=== PATIENT | female | born 1945 | race Caucasian/White ===

== ENCOUNTER 2019-12-20 08:49 | Outpatient (REF) | payer MEDICARE, SELFPAY ==
[2019-12-20 12:16] LABS: Alanine Aminotransferase 26 U/L (0-31); Anion Gap 16 (12-20); Aspartate Amino Transferase 22 U/L (5-31); Blood Urea Nitrogen 20 mg/dL (9-16); Calcium 9.7 mg/dL (8.4-10.2); Carbon Dioxide 28 mmol/L (22-29); Chloride 97 mmol/L (96-108); Cholesterol 180 mg/dL; Estimated Glomerular Filt Rate > 60; Glucose Fasting 144 mg/dL (60-99); HDL Cholesterol 81 mg/dL; LDL Cholesterol Calculated 82 mg/dl; Potassium 4.5 mmol/l (3.3-5.1); Sodium 136 mmol/L (135-145); Triglycerides 87 mg/dL
[2019-12-20 12:18] LABS: Vitamin D 25-OH Total 25.4 ng/mL (>30)
[2019-12-20 12:19] LABS: Estimated Average Glucose 180 mg/dL; Hemoglobin A1c % 7.9 %
== END 2019-12-20 08:50 | disposition home or self-care (01) ==
LOC: HO.HMGCLDS 08:49
PROVIDERS: PCP Internal Medicine; Visit Provider Internal Medicine
DX: I10 Essential (primary) hypertension (principal); E78.5 Hyperlipidemia, unspecified; E11.9 Type 2 diabetes mellitus without complications; Z78.0 Asymptomatic menopausal state
CPT/HCPCS: 80048; 80061; 82306; 83036; 84450; 84460

== ENCOUNTER 2020-05-12 07:44 | Outpatient (REF) | payer MEDICARE, SELFPAY ==
[2020-05-12 11:26] LABS: Estimated Average Glucose 214 mg/dL; Hemoglobin A1c % 9.1 %
[2020-05-12 11:56] LABS: Creatinine Urine 153.15 mg/dL; Microalbum/Creatinine Ratio Ur 47.6 ug/mg cr
[2020-05-12 12:03] LABS: Alanine Aminotransferase 27 U/L (0-31); Anion Gap 15 (12-20); Aspartate Amino Transferase 23 U/L (5-31); Blood Urea Nitrogen 17 mg/dL (9-16); Calcium 8.8 mg/dL (8.4-10.2); Carbon Dioxide 26 mmol/L (22-29); Chloride 100 mmol/L (96-108); Cholesterol 182 mg/dL; Estimated Glomerular Filt Rate > 60; Glucose Fasting 190 mg/dL (60-99); HDL Cholesterol 62 mg/dL; LDL Cholesterol Calculated 85 mg/dl; Potassium 4.3 mmol/L (3.3-5.1); Sodium 137 mmol/L (135-145); Triglycerides 179 mg/dL
[2020-05-12 12:06] LABS: Vitamin D 25-OH Total 24.5 ng/mL (>30)
== END 2020-05-12 07:45 | disposition home or self-care (01) ==
LOC: HO.HMGCLDS 07:44
PROVIDERS: PCP Internal Medicine; Visit Provider Internal Medicine
DX: E55.9 Vitamin D deficiency, unspecified (principal); E11.65 Type 2 diabetes mellitus with hyperglycemia; E78.5 Hyperlipidemia, unspecified; I10 Essential (primary) hypertension; Z78.0 Asymptomatic menopausal state
CPT/HCPCS: 36415; 80048; 80061; 82043; 82306; 83036; 84450; 84460

== ENCOUNTER 2020-05-20 | Outpatient (REF) | payer MEDICARE, SELFPAY ==
[2020-05-22 14:36] LABS: FIT1 NEGATIVE (NEGATIVE); FIT2 NEGATIVE (NEGATIVE)
[2020-05-22 14:37] LABS: FIT Int Ctl YES
== END 2020-05-20 00:01 | disposition home or self-care (01) ==
LOC: HO.LNP
PROVIDERS: Visit Provider Internal Medicine
DX: Z12.11 Encounter for screening for malignant neoplasm of colon (principal)
CPT/HCPCS: 82274

== ENCOUNTER 2020-08-19 07:22 | Outpatient (REF) | payer MEDICARE, SELFPAY ==
[2020-08-19 11:38] LABS: Estimated Average Glucose 197 mg/dL; Hemoglobin A1c % 8.5 %
[2020-08-19 11:50] LABS: Alanine Aminotransferase 36 U/L (0-31); Aspartate Amino Transferase 32 U/L (5-31); Cholesterol 155 mg/dL; HDL Cholesterol 57 mg/dL; LDL Cholesterol Calculated 78 mg/dl; Triglycerides 100 mg/dL
== END 2020-08-19 07:23 | disposition home or self-care (01) ==
LOC: HO.HMGCLDS 07:22
PROVIDERS: PCP Internal Medicine; Visit Provider Internal Medicine
DX: E11.29 Type 2 diabetes mellitus with other diabetic kidney complication (principal); E11.65 Type 2 diabetes mellitus with hyperglycemia; E55.9 Vitamin D deficiency, unspecified; E78.5 Hyperlipidemia, unspecified; I10 Essential (primary) hypertension; R80.9 Proteinuria, unspecified; Z78.0 Asymptomatic menopausal state
CPT/HCPCS: 36415; 80061; 82306; 83036; 84450; 84460

== ENCOUNTER 2020-11-18 08:36 | Outpatient (REF) | payer MEDICARE, SELFPAY ==
[2020-11-18 11:22] LABS: MANUAL DIFF FLAG NO
[2020-11-18 11:32] LABS: Basophils Percent Auto 0.5 % (0-2); Eosinophils Percent Auto 1.1 % (0-4); Hematocrit 34.2 % (37-47); Hemoglobin 11.4 g/dl (12.0-16.0); Imm Gran Abs Auto 0.02 X10*3/uL (0.00-0.03); Imm Gran Pct Auto 0.5 % (0.0-0.4); Lymphocytes Absolute Auto 0.8 X10*3/uL (1.2-4.9); Lymphocytes Percent Auto 20.3 % (20-40); Mean Corpuscular HGB Conc 33.3 g/dl (31.0-35.0); Mean Corpuscular Hemoglobin 31.1 pg (27.0-33.0); Mean Corpuscular Volume 93.4 fL (80-98); Mean Platelet Volume 10.4 fL (9.4-12.3); Monocytes Absolute Auto 0.7 X10*3/uL (0.1-1.2); Monocytes Percent Auto 18.1 % (2-11); Neutrophils Absolute Auto 2.2 X10*3/uL (2.0-8.3); Neutrophils Percent Auto 59.5 % (45-73); Platelet Count 235 X10*3/uL (160-400); Red Blood Count 3.66 X10*6/uL (4.20-5.50); Red Cell Distribution Width 13.4 % (11.0-16.0); White Blood Count 3.7 X10*3/uL (4.8-10.8)
[2020-11-18 12:11] LABS: Alanine Aminotransferase 24 U/L (0-31); Anion Gap 14 (12-20); Aspartate Amino Transferase 25 U/L (5-31); Blood Urea Nitrogen 14 mg/dL (9-16); Calcium 9.7 mg/dL (8.4-10.2); Carbon Dioxide 26 mmol/L (22-29); Chloride 104 mmol/L (96-108); Cholesterol 162 mg/dL; Estimated Glomerular Filt Rate > 60; Glucose Fasting 146 mg/dL (60-99); HDL Cholesterol 61 mg/dL; LDL Cholesterol Calculated 82 mg/dl; Potassium 4.4 mmol/L (3.3-5.1); Sodium 140 mmol/L (135-145); Triglycerides 97 mg/dL
[2020-11-18 12:54] LABS: Estimated Average Glucose 148 mg/dL; Hemoglobin A1C 151.7874 umol/L; Hemoglobin A1c % 6.8 %
== END 2020-11-18 08:37 | disposition home or self-care (01) ==
LOC: HO.HMGCLDS 08:36
PROVIDERS: PCP Internal Medicine; Visit Provider Internal Medicine
DX: E11.29 Type 2 diabetes mellitus with other diabetic kidney complication (principal); R80.9 Proteinuria, unspecified; I10 Essential (primary) hypertension; E78.5 Hyperlipidemia, unspecified
CPT/HCPCS: 36415; 80048; 80061; 83036; 84450; 84460; 85025

== ENCOUNTER 2021-02-16 08:11 | Outpatient (REF) | payer MEDICARE, SELFPAY ==
[2021-02-16 12:01] LABS: Alanine Aminotransferase 22 U/L (0-31); Anion Gap 12 (12-20); Aspartate Amino Transferase 23 U/L (5-31); Blood Urea Nitrogen 14 mg/dL (9-16); Calcium 9.6 mg/dL (8.4-10.2); Carbon Dioxide 29 mmol/L (22-29); Chloride 102 mmol/L (96-108); Cholesterol 207 mg/dL; Estimated Glomerular Filt Rate > 60; Glucose Fasting 159 mg/dL (60-99); HDL Cholesterol 59 mg/dL; LDL Cholesterol Calculated 121 mg/dl; Potassium 4.1 mmol/L (3.3-5.1); Sodium 139 mmol/L (135-145); Triglycerides 135 mg/dL
[2021-02-16 12:12] LABS: Estimated Average Glucose 166 mg/dL; Hemoglobin A1c % 7.4 %; Vitamin D 25-OH Total 28.3 ng/mL (>30)
== END 2021-02-16 08:12 | disposition home or self-care (01) ==
LOC: HO.HMGCLDS 08:11
PROVIDERS: PCP Internal Medicine; Visit Provider Internal Medicine
DX: E11.29 Type 2 diabetes mellitus with other diabetic kidney complication (principal); E55.9 Vitamin D deficiency, unspecified; E78.5 Hyperlipidemia, unspecified; I10 Essential (primary) hypertension; R80.9 Proteinuria, unspecified; Z78.0 Asymptomatic menopausal state
CPT/HCPCS: 36415; 80048; 80061; 82306; 83036; 84450; 84460

== ENCOUNTER 2021-05-27 07:52 | Outpatient (REF) | payer MEDICARE, SELFPAY ==
[2021-05-27 11:14] LABS: Basophils Percent Auto 0.5 % (0-2); Eosinophils Absolute Auto 0.1 X10*3/uL (0.0-0.4); Eosinophils Percent Auto 1.4 % (0-4); Hemoglobin 11.2 g/dl (12.0-16.0); Imm Gran Abs Auto 0.05 X10*3/uL (0.00-0.03); Imm Gran Pct Auto 1.2 % (0.0-0.4); Lymphocytes Absolute Auto 1.1 X10*3/uL (1.2-4.9); Lymphocytes Percent Auto 25.2 % (20-40); MANUAL DIFF FLAG SCAN; Mean Corpuscular Hemoglobin 30.5 pg (27.0-33.0); Mean Corpuscular Volume 95.4 fL (80.0-98.0); Mean Platelet Volume 10.2 fL (9.4-12.3); Monocytes Percent Auto 22.8 % (2-11); Neutrophils Absolute Auto 2.1 x10*3/uL (2.0-8.3); Neutrophils Percent Auto 48.9 % (45-73); Platelet Count 264 X10*3/uL (160-400); Red Blood Count 3.67 X10*6/uL (4.20-5.50); Red Cell Distribution Width 12.5 % (11.0-16.0); SCAN SMEAR FLAG 1; White Blood Count 4.3 X10*3/uL (4.8-10.8)
[2021-05-27 11:26] LABS: Estimated Average Glucose 163 mg/dL; Hemoglobin A1c % 7.3 %
[2021-05-27 11:35] LABS: Alanine Aminotransferase 19 U/L (0-31); Anion Gap 14 (12-20); Aspartate Amino Transferase 21 U/L (5-31); Blood Urea Nitrogen 32 mg/dL (9-16); Calcium 9.8 mg/dL (8.4-10.2); Carbon Dioxide 29 mmol/L (22-29); Chloride 100 mmol/L (96-108); Cholesterol 157 mg/dL; Estimated Glomerular Filt Rate 60; Glucose Fasting 139 mg/dL (60-99); HDL Cholesterol 59 mg/dL; Iron 70 mcg/dL (30-160); LDL Cholesterol Calculated 82 mg/dl; Percent Iron Saturation 17 % (15-50); Potassium 4.7 mmol/L (3.3-5.1); Sodium 138 mmol/L (135-145); Total Iron Binding Capacity 410 mcg/dL (228-428); Triglycerides 83 mg/dL; Unsaturated Iron Binding 340 ug/dL
[2021-05-27 11:45] LABS: SLIDE REVIEW VERIFIED
[2021-05-27 12:16] LABS: Creatinine Urine 103.76 mg/dL; Microalbum/Creatinine Ratio Ur 15.4 ug/mg cr
[2021-05-27 15:00] LABS: Vitamin D 25-OH Total 31.9 ng/mL (>30)
== END 2021-05-27 07:53 | disposition home or self-care (01) ==
LOC: HO.HMGCLDS 07:52
PROVIDERS: Visit Provider Internal Medicine
DX: E66.01 Morbid (severe) obesity due to excess calories (principal); E11.29 Type 2 diabetes mellitus with other diabetic kidney complication; E11.65 Type 2 diabetes mellitus with hyperglycemia; E55.9 Vitamin D deficiency, unspecified; E78.5 Hyperlipidemia, unspecified; I10 Essential (primary) hypertension; R80.9 Proteinuria, unspecified
CPT/HCPCS: 36415; 80048; 80061; 82043; 82306; 83036; 83540; 84450; 84460; 85025

== ENCOUNTER 2021-06-19 05:00 | Emergency (ER) | payer MEDICARE, SELFPAY ==
--- NOTE | ~2021-06-19 | US_ITS ---
EXAMINATION: US VENOUS ULTRASOUND WITH DOPPLER LOWER EXTREMITY, RIGHT CLINICAL INFORMATION: Right leg pain and swelling COMPARISON: None TECHNIQUE: Ultrasound of the deep veins is performed from the hip to the calf with compression sonography and color and pulse Doppler assessment. Spectral analysis with color-flow imaging is performed. FINDINGS: There is normal venous compression and respiratory variation and augmented flow. The visualized common femoral vein, superficial femoral vein, profunda femoral vein, popliteal vein, and the trifurcation region shows no evidence of deep venous thrombosis. No popliteal artery aneurysm. No popliteal fossa cyst. US/US venous duplex LE RT IMPRESSION: No acute DVT demonstrated in the right lower extremity.
[2021-06-19 05:24] VITALS: BP 193/83; PULSE 80; RESP 20; TEMP 36.5; O2SAT 96; BMI 32.8
[2021-06-19 05:41] VITALS: BP 192/67; PULSE 88; RESP 14; TEMP 36.7; O2SAT 97
--- NOTE | 2021-06-19 06:59 | ED_ITS ---
HPI - Extremity Problem General Chief complaint: Extremity Injury, Lower Stated complaint: Leg pain Time Seen by Provider: 06/19/21 05:35 Source: patient Mode of arrival: ambulatory Limitations: no limitations History of Present Illness MD Complaint: extremity pain and extremity swelling Onset (ago): day(s) (3) Pain Consistency: constant Location: right and lower extremity Quality: constant and other (throbbing) Radiation: none Relieving factors: nothing Exacerbating factors: palpation Associated symptoms: denies other symptoms Context: other (unknown) Related Data Home Medications Medication Instructions Recorded Confirmed blood sugar diagnostic #10 ea 05/14/20 05/28/21 lancets 28 gauge #100 ea 05/14/20 05/28/21 cholecalciferol (vitamin D3) 50 50 mcg PO DAILY 02/18/21 05/28/21 mcg (2,000 unit) capsule Previous Rx's Medication Instructions Recorded blood sugar diagnostic (FreeStyle #50 ea 08/20/20 Lite Strips) blood-glucose meter (FreeStyle #1 ea 08/20/20 [place] Lite) lancets 28 gauge (CareTouch Safety #100 ea 08/20/20 Lancets) diabetes shoes with inserts #1 ea 08/21/20 losartan 50 mg tablet 50 mg PO DAILY #90 cap 11/19/20 lorazepam 0.5 mg tablet 0.5 mg PO DAILY PRN #10 tab 02/18/21 rosuvastatin 5 mg tablet 5 mg PO Q2D 90 Days #45 cap 02/18/21 metformin 500 mg tablet,extended 1,000 mg PO BID #360 cap 03/09/21 release 24 hr ondansetron 4 mg disintegrating 4 mg PO Q8H PRN #20 tab 06/19/21 tablet oxycodone 5 mg tablet 5 mg PO TID PRN #10 tab 06/19/21 Allergies Allergy/AdvReac Type Severity Reaction Status Date / Time penicillin V Allergy Unknown Unknown Verified 05/28/21 12:04 Review of Systems Review of Systems: Constitutional : No Fever, No Chills ENT/Mouth : No Ear Pain, No Hoarseness, No sore throat Eyes: No Eye Pain, No Swelling, No Redness, No Foreign Body Cardiovascular : No Chest Pain, No SOB Respiratory : No Cough, No Dyspnea Gastrointestinal : No Nausea, No Vomiting, No Diarrhea, No abdominal Pain Genitourinary : No Dysuria, No Hematuria Musculoskeletal : no joint pain, Npos Myalgias, No Joint Swelling Skin : No Skin lacerations, No rash Neuro : No Weakness, No Numbness, No Loss of Consciousness, No Dizziness, No Headache Psych : No Anxiety/Panic, No Depression Heme/Lymph: no easy bruising, no Lymphadenopathy Endocrine : No Polyuria, No Polydipsia All other systems reviewed and are negative [facility] Past Medical History Attestation statement: The following information was validated with the patient. Medical History Asymptomatic age-related postmenopausal state Diabetes mellitus with hyperglycemia, without long-term current use of insulin Diabetes mellitus with microalbuminuria, without long-term current use of insulin Dyslipidemia HTN (hypertension) Morbid obesity Plantar fasciitis, bilateral Vitamin D deficiency Surgical History History of total abdominal hysterectomy and bilateral salpingo-oophorectomy Family History Family History Father Medical history non-contributory Mother Medical history non-contributory Social History Social History Housing: House Alcohol intake: current Patient Tobacco Use Status: Never used Tobacco e-Cigarette/Vaping Use: Never Used Second Hand Smoke Exposure: No Advance Directives: No service: No Current occupational status: retired Cognitive needs: No Hearing needs: No Vision needs: No Physical Exam Vital Signs: Vital Signs: Last Vital Signs Temp 98.4 F 06/19/21 07:03 Pulse 72 06/19/21 07:03 Resp 14 06/19/21 07:03 BP 147/49 H 06/19/21 07:03 Pulse Ox 96 06/19/21 07:03 BMI result Body Mass Index 32.8 Appearance: Alert. Oriented X3. No acute distress. Eyes: Pupils equal, round and reactive to light. ENT: Pharynx normal. Neck: Normal inspection. Neck supple. CVS: Normal heart rate and rhythm. Pulses normal. Respiratory: No respiratory distress. Breath sounds normal. Abdomen: Soft and nontender. Skin: Skin warm and dry. Normal skin color. Normal skin turgor. Extremities: No lower extremity edema. R leg appears more swollen but no pitting edema, R calf is ttp - distal NV intact bounding DP pulses - foot warm to the touch Neuro: Oriented X 3. No motor deficit. No sensory deficit. Course Course Course Narrative: no acute findings, stable for DC feels much better MDM - Extremity (Nontraumatic) MDM Narrative Medical decision making narrative: 76 yo female with hx of HTN, HLD, DM, here with c/o R calf cramping - no signs of infection she is NV intact she had no precipitating events or falls at this time will obtain labs, US to r/o DVT. PO valium for MR. Dejesus per results and findings. Lab Data Result diagrams: 06/19/21 07:26 06/19/21 07:26 Labs: Lab Results 06/19/21 06/19/21 06/19/21 Range/Units 07:26 07:26 07:26 WBC 5.4 (4.8-10.8) X10*3/uL RBC 3.33 L (4.20-5.50) X10*6/uL Hgb 10.3 L (12.0-16.0) g/dl Hct 30.4 L (37.0-47.0) % MCV 91.3 (80.0-98.0) fL MCH 30.9 (27.0-33.0) pg MCHC 33.9 (31.0-35.0) g/dl RDW 12.5 (11.0-16.0) % Plt Count 223 (160-400) X10*3/uL MPV 9.2 L (9.4-12.3) fL Absolute Nucleated RBC 0.000 (0.0-0.012) X10*3/uL Nucleated RBC % (auto) 0.0 (0.0-0.2) /100WBC PT 11.4 (9.9-13.0) SEC INR 1.0 (0.9-1.1) Sodium 139 (135-145) mmol/L Potassium 4.0 (3.3-5.1) mmol/L Chloride 105 (96-108) mmol/L Carbon Dioxide 24 (22-29) mmol/L Anion Gap 14 (12-20) BUN 19 H (9-16) mg/dL Creatinine 0.82 (0.5-1.4) mg/dL Estim Creat Clear Calc 58.9 Estimated GFR > 60 Random Glucose 179 H (60-115) mg/dL Calcium 9.3 (8.4-10.2) mg/dL Magnesium 2.0 (1.6-2.6) mg/dL Total Creatine Kinase 259 H (26-140) U/L Discharge Plan Discharge Clinical Impression: Calf cramp Patient Disposition: Home, Self-Care Instructions: Leg Cramps (ED), Muscle Cramp (ED) Additional Instructions: return to ED for any worsening symptoms or concerns US negative, labs stable Prescriptions: New oxycodone 5 mg tablet 5 mg PO TID PRN (Reason: pain) Qty: 10 0RF ondansetron 4 mg tablet,disintegrating 4 mg PO Q8H PRN (Reason: nausea and vomiting) Qty: 20 0RF No Action metformin 500 mg tablet extended release 24 hr 1,000 mg PO BID Qty: 360 1RF losartan 50 mg tablet 50 mg PO DAILY Qty: 90 3RF (DME) lancets 28 gauge misc See Rx Instructions ea topical BID Qty: 100 0RF Rx Instructions: As directed (DME) FreeStyle Lite Strips Strip See Rx Instructions ea Not Applicable BID Qty: 10 0RF Rx Instructions: As directed (DME) blood-glucose meter [FreeStyle [place] Lite] Kit See Rx Instructions .ROUTE .MEDSUPPLY Qty: 1 0RF Rx Instructions: check fasting lood sugar once a day (DME) FreeStyle Lite Strips Strip See Rx Instructions .ROUTE .MEDSUPPLY Qty: 50 5RF Rx Instructions: Check Fasting blood sugar once a day as directed (DME) lancets [CareTouch Safety Lancets] 28 gauge misc See Rx Instructions .ROUTE .MEDSUPPLY Qty: 100 3RF Rx Instructions: Check fasting blood sugar once a day As directed (DME) diabetes shoes with inserts See Rx Instructions .Route .MEDSUPPLY Qty: 1 0RF Rx Instructions: As directed cholecalciferol (vitamin D3) 50 mcg (2,000 unit) capsule 50 mcg PO DAILY 0RF rosuvastatin 5 mg tablet 5 mg PO Q2D 90 Days Qty: 45 4RF lorazepam 0.5 mg tablet 0.5 mg PO DAILY PRN (Reason: anxiety) Qty: 10 0RF Referrals: Radha Diaz MD [Primary Care Provider] - 2 days (if not better)
[2021-06-19 07:03] VITALS: BP 147/49; PULSE 72; RESP 14; TEMP 36.9; O2SAT 96
[2021-06-19 07:31] LABS: Hematocrit 30.4 % (37.0-47.0); Hemoglobin 10.3 g/dl (12.0-16.0); Mean Corpuscular HGB Conc 33.9 g/dl (31.0-35.0); Mean Corpuscular Hemoglobin 30.9 pg (27.0-33.0); Mean Corpuscular Volume 91.3 fL (80.0-98.0); Mean Platelet Volume 9.2 fL (9.4-12.3); Platelet Count 223 X10*3/uL (160-400); Red Blood Count 3.33 X10*6/uL (4.20-5.50); Red Cell Distribution Width 12.5 % (11.0-16.0); White Blood Count 5.4 X10*3/uL (4.8-10.8)
[2021-06-19] MEDS: diazePAM 2 MG TABLET PO (07:36)
[2021-06-19 07:38] LABS: Prothrombin Time 11.4 SEC (9.9-13.0)
[2021-06-19 08:08] LABS: Anion Gap 14 (12-20); Blood Urea Nitrogen 19 mg/dL (9-16); Calcium 9.3 mg/dL (8.4-10.2); Carbon Dioxide 24 mmol/L (22-29); Chloride 105 mmol/L (96-108); Creatinine Clr Calc Pharmacy 58.9; Estimated Glomerular Filt Rate > 60; Glucose Random 179 mg/dL (60-115); Sodium 139 mmol/L (135-145)
[2021-06-19] MEDS: Ondansetron ODT 4 MG TAB.RAPDIS TRANSLINGU (08:28)
[2021-06-19] MEDS: oxyCODONE HCl Immed Release 5 MG TABLET PO (08:28)
== END 2021-06-19 09:27 | disposition home or self-care (01) ==
PROVIDERS: Emergency Provider Emergency Medicine; PCP Internal Medicine
DX: R25.2 Cramp and spasm (principal); M79.604 Pain in right leg; I10 Essential (primary) hypertension; E11.9 Type 2 diabetes mellitus without complications
CPT/HCPCS: 36415; 80048; 82550; 83735; 85027; 85610; 93971; 99284

== ENCOUNTER 2021-07-19 13:33 | Outpatient (REF) | payer MEDICARE, SELFPAY ==
--- NOTE | ~2021-07-19 | US_ITS ---
EXAMINATION: NONINVASIVE ANKLE BRACHIAL INDICES OF BOTH LOWER EXTREMITIES CLINICAL INFORMATION: Right lower extremity pain.. COMPARISON: Venous Doppler ultrasound of the right lower extremity on June 19, 2021. TECHNIQUE: Ankle-brachial indices were calculated bilaterally and PVR tracings were performed at the level of the ankles. This study was performed at rest only. FINDINGS: RIGHT LEG: Right ankle-brachial index: 1.14 PVR (ankle): Normal LEFT LEG: Ankle-brachial index: 1.16 PVR (ankle): Normal US/US AMY complete IMPRESSION: RIGHT LEG: AMY 1.14. No evidence of arterial insufficiency. LEFT LEG: AMY 1.16. No evidence of arterial insufficiency. AMY Reference: - >0.97-1.25 = normal - no significant arterial disease - 0.75-0.96 = mild peripheral arterial disease - 0.5-0.74 = moderate peripheral arterial disease - <0.50 = severe peripheral arterial disease
== END 2021-07-19 13:34 | disposition home or self-care (01) ==
LOC: HO.US 13:33
PROVIDERS: Visit Provider Internal Medicine
DX: M79.661 Pain in right lower leg (principal); E11.65 Type 2 diabetes mellitus with hyperglycemia; R80.9 Proteinuria, unspecified; I10 Essential (primary) hypertension
CPT/HCPCS: 93923

== ENCOUNTER 2021-08-20 08:55 | Outpatient (REF) | payer MEDICARE, SELFPAY ==
[2021-08-20 11:27] LABS: Basophils Percent Auto 0.7 % (0-2); Eosinophils Absolute Auto 0.1 X10*3/uL (0.0-0.4); Eosinophils Percent Auto 1.2 % (0-4); Hematocrit 32.1 % (37.0-47.0); Hemoglobin 10.7 g/dl (12.0-16.0); Imm Gran Abs Auto 0.07 X10*3/uL (0.00-0.03); Imm Gran Pct Auto 1.7 % (0.0-0.4); Lymphocytes Absolute Auto 0.8 X10*3/uL (1.2-4.9); Lymphocytes Percent Auto 20.9 % (20-40); MANUAL DIFF FLAG SCAN; Mean Corpuscular HGB Conc 33.3 g/dl (31.0-35.0); Mean Corpuscular Hemoglobin 31.4 pg (27.0-33.0); Mean Corpuscular Volume 94.1 fL (80.0-98.0); Mean Platelet Volume 10.1 fL (9.4-12.3); Monocytes Absolute Auto 0.9 X10*3/uL (0.1-1.2); Monocytes Percent Auto 23.4 % (2-11); Neutrophils Absolute Auto 2.1 x10*3/uL (2.0-8.3); Neutrophils Percent Auto 52.1 % (45-73); Platelet Count 243 X10*3/uL (160-400); Red Blood Count 3.41 X10*6/uL (4.20-5.50); SCAN SMEAR FLAG 1
[2021-08-20 11:57] LABS: Iron 92 mcg/dL (30-160); Percent Iron Saturation 25 % (15-50); Total Iron Binding Capacity 372 mcg/dL (228-428); Unsaturated Iron Binding 280 ug/dL
[2021-08-20 12:00] LABS: SLIDE REVIEW VERIFIED
== END 2021-08-20 08:56 | disposition home or self-care (01) ==
LOC: HO.HMGCLDS 08:55
PROVIDERS: PCP Internal Medicine; Visit Provider Internal Medicine
DX: D64.9 Anemia, unspecified (principal)
CPT/HCPCS: 36415; 83540; 85025

== ENCOUNTER 2021-09-13 12:51 | Outpatient (REF) | payer MEDICARE, SELFPAY ==
--- NOTE | ~2021-09-13 | MM_ITS ---
EXAMINATION: MM SCREENING DIGITAL BREAST TOMOSYNTHESIS, BILATERAL CLINICAL INFORMATION: Screening. Asymptomatic. The lifetime risk of breast cancer based on the Tyrer-Cuzick Model is 2%. COMPARISON: Mammography: 09/03/2019, 05/09/2018, 02/23/2017 TECHNIQUE: Digital breast tomosynthesis is performed in both the craniocaudal and mediolateral oblique views along with computer-aided detection (CAD). Synthesized 2D images are generated from the tomosynthesis. Additional exaggerated right CC view is provided. FINDINGS: The breasts are heterogeneously dense, which may obscure small masses (ACR BI-RADS breast composition Category c). There are no significant masses, abnormal calcifications, or other abnormalities. Parenchymal pattern is similar to prior studies. There is no developing density or architectural abnormality. Scattered bilateral fine and coarse calcifications are again noted similar in distribution. The axilla and skin contours are unremarkable. No significant changes. MM/MM tomosynthesis screening BI IMPRESSION: No significant changes from prior studies. ASSESSMENT: BI-RADS 2: Benign RECOMMENDATION: Routine annual mammography screening. This patient's information was entered into a reminder system with a target due date for their next mammogram.
== END 2021-09-13 12:52 | disposition home or self-care (01) ==
LOC: HO.MAMMO 12:51
PROVIDERS: Visit Provider Internal Medicine
DX: Z12.31 Encounter for screening mammogram for malignant neoplasm of breast (principal)
CPT/HCPCS: 77063; 77067

== ENCOUNTER 2021-10-02 14:15 | Outpatient (REF) | payer MEDICARE, SELFPAY ==
[2021-10-02 14:39] LABS: Binax Internal Control QC Valid; Binax Now Covid-19 Ag Positive (Negative); Binax Performed by: HO.BONILM
== END 2021-10-02 14:16 | disposition home or self-care (01) ==
LOC: HO.HMGCLDS 14:15
PROVIDERS: PCP Internal Medicine; Visit Provider Physician Assistant Medical
DX: Z20.822 Contact with and (suspected) exposure to COVID-19 (principal)
CPT/HCPCS: 87811; C9803

== ENCOUNTER 2022-01-25 08:17 | Outpatient (REF) | payer MEDICARE, SELFPAY ==
[2022-01-25 11:52] LABS: Basophils Percent Auto 0.7 % (0-2); Eosinophils Absolute Auto 0.1 X10*3/uL (0.0-0.4); Eosinophils Percent Auto 1.5 % (0-4); Hematocrit 34.6 % (37.0-47.0); Hemoglobin 11.5 g/dl (12.0-16.0); Imm Gran Abs Auto 0.11 X10*3/uL (0.00-0.03); Imm Gran Pct Auto 2.7 % (0.0-0.4); Lymphocytes Percent Auto 25.2 % (20-40); MANUAL DIFF FLAG SCAN; Mean Corpuscular HGB Conc 33.2 g/dl (31.0-35.0); Mean Corpuscular Hemoglobin 30.7 pg (27.0-33.0); Mean Corpuscular Volume 92.5 fL (80.0-98.0); Mean Platelet Volume 9.8 fL (9.4-12.3); Monocytes Absolute Auto 0.9 X10*3/uL (0.1-1.2); Monocytes Percent Auto 22.8 % (2-11); Neutrophils Percent Auto 47.1 % (45-73); Platelet Count 248 X10*3/uL (160-400); Red Blood Count 3.74 X10*6/uL (4.20-5.50); Red Cell Distribution Width 12.9 % (11.0-16.0); SCAN SMEAR FLAG 1; White Blood Count 4.1 X10*3/uL (4.8-10.8)
[2022-01-25 12:02] LABS: Estimated Average Glucose 177 mg/dL; Hemoglobin A1c % 7.8 %
[2022-01-25 12:27] LABS: SLIDE REVIEW VERIFIED
[2022-01-25 12:28] LABS: Alanine Aminotransferase 21 U/L (0-31); Anion Gap 17 (12-20); Aspartate Amino Transferase 22 U/L (5-31); Blood Urea Nitrogen 19 mg/dL (9-16); Calcium 9.5 mg/dL (8.4-10.2); Carbon Dioxide 25 mmol/L (22-29); Chloride 101 mmol/L (96-108); Cholesterol 230 mg/dL; Estimated Glomerular Filt Rate > 60; Glucose Fasting 175 mg/dL (60-99); HDL Cholesterol 70 mg/dL; Iron 107 mcg/dL (30-160); LDL Cholesterol Calculated 137 mg/dl; Percent Iron Saturation 26 % (15-50); Potassium 4.5 mmol/L (3.3-5.1); Sodium 138 mmol/L (135-145); Total Iron Binding Capacity 408 mcg/dL (228-428); Triglycerides 117 mg/dL; Unsaturated Iron Binding 301 ug/dL
== END 2022-01-25 08:18 | disposition home or self-care (01) ==
LOC: HO.HMGCLDS 08:17
PROVIDERS: PCP Internal Medicine; Visit Provider Internal Medicine
DX: E11.29 Type 2 diabetes mellitus with other diabetic kidney complication (principal); E11.65 Type 2 diabetes mellitus with hyperglycemia; E78.5 Hyperlipidemia, unspecified; I10 Essential (primary) hypertension; R80.9 Proteinuria, unspecified; D50.9 Iron deficiency anemia, unspecified
CPT/HCPCS: 36415; 80048; 80061; 83036; 83540; 84450; 84460; 85025

== ENCOUNTER 2022-05-02 07:50 | Outpatient (REF) | payer MEDICARE, SELFPAY ==
[2022-05-02 12:07] LABS: Creatinine Urine 24.18 mg/dL; Microalbum/Creatinine Ratio Ur 74.4 ug/mg cr
[2022-05-02 12:15] LABS: Basophils Percent Auto 0.7 % (0-2); Eosinophils Absolute Auto 0.1 X10*3/uL (0.0-0.4); Eosinophils Percent Auto 1.4 % (0-4); Imm Gran Abs Auto 0.26 X10*3/uL (0.00-0.03); Imm Gran Pct Auto 4.4 % (0.0-0.4); Lymphocytes Absolute Auto 1.2 X10*3/uL (1.2-4.9); Lymphocytes Percent Auto 20.3 % (20-40); MANUAL DIFF FLAG SCAN; Mean Corpuscular HGB Conc 33.3 g/dl (31.0-35.0); Mean Corpuscular Hemoglobin 30.3 pg (27.0-33.0); Mean Corpuscular Volume 90.9 fL (80.0-98.0); Mean Platelet Volume 9.7 fL (9.4-12.3); Monocytes Absolute Auto 1.5 X10*3/uL (0.1-1.2); Monocytes Percent Auto 25.4 % (2-11); Neutrophils Absolute Auto 2.8 x10*3/uL (2.0-8.3); Neutrophils Percent Auto 47.8 % (45-73); Platelet Count 245 X10*3/uL (160-400); Red Blood Count 3.63 X10*6/uL (4.20-5.50); Red Cell Distribution Width 12.6 % (11.0-16.0); SCAN SMEAR FLAG 1; White Blood Count 5.9 X10*3/uL (4.8-10.8)
[2022-05-02 12:37] LABS: SLIDE REVIEW VERIFIED
[2022-05-02 12:40] LABS: Estimated Average Glucose 237 mg/dL; Hemoglobin A1c % 9.9 %
[2022-05-02 12:46] LABS: Alanine Aminotransferase 19 U/L (0-31); Anion Gap 14 (12-20); Aspartate Amino Transferase 16 U/L (5-31); Blood Urea Nitrogen 21 mg/dL (9-16); Calcium 9.2 mg/dL (8.4-10.2); Carbon Dioxide 26 mmol/L (22-29); Chloride 98 mmol/L (96-108); Cholesterol 141 mg/dL; Estimated Glomerular Filt Rate > 60; Glucose Fasting 209 mg/dL (60-99); HDL Cholesterol 59 mg/dL; LDL Cholesterol Calculated 59 mg/dl; Potassium 4.4 mmol/L (3.3-5.1); Sodium 134 mmol/L (135-145); Triglycerides 116 mg/dL
[2022-05-02 12:51] LABS: Vitamin D 25-OH Total 24.9 ng/mL (>30)
== END 2022-05-02 07:51 | disposition home or self-care (01) ==
LOC: HO.HMGCLDS 07:50
PROVIDERS: PCP Internal Medicine; Visit Provider Internal Medicine
DX: D50.9 Iron deficiency anemia, unspecified (principal); E11.29 Type 2 diabetes mellitus with other diabetic kidney complication; I10 Essential (primary) hypertension; R80.9 Proteinuria, unspecified; E78.5 Hyperlipidemia, unspecified; Z78.0 Asymptomatic menopausal state
CPT/HCPCS: 36415; 80048; 80061; 82043; 82306; 83036; 84450; 84460; 85025

== ENCOUNTER → 2022-05-11 09:50 | Outpatient (BNVA) | payer MEDICARE, SELFPAY | PROVIDERS: PCP Internal Medicine; Referring Provider Internal Medicine; Visit Provider Surgery | DX: L02.413 Cutaneous abscess of right upper limb (principal) | CPT/HCPCS: 10061; 99202 ==

== ENCOUNTER → 2022-05-19 14:19 | Outpatient (BNVA) | payer MEDICARE, SELFPAY | PROVIDERS: PCP Internal Medicine; Visit Provider Surgery | DX: Z48.817 Encounter for surgical aftercare following surgery on the skin and subcutaneous tissue (principal); Z87.2 Personal history of diseases of the skin and subcutaneous tissue | CPT/HCPCS: 99212 ==

== ENCOUNTER → 2022-06-17 09:53 | Outpatient (BNVA) | payer MEDICARE, SELFPAY | PROVIDERS: PCP Internal Medicine; Visit Provider Surgery | DX: L02.413 Cutaneous abscess of right upper limb (principal) | CPT/HCPCS: 99212 ==

== ENCOUNTER 2022-08-02 10:57 | Outpatient (REF) | payer MEDICARE, SELFPAY ==
[2022-08-02 11:06] VITALS: BMI 31.9
[2022-08-02 11:07] VITALS: BP 169/73; PULSE 77; RESP 16; TEMP 36.8; O2SAT 97
[2022-08-02 11:55] VITALS: BP 155/67; PULSE 70; RESP 16; O2SAT 96
--- NOTE | 2022-08-03 09:34 | P.OP_ITS ---
Operative Note Operative Note Date of Service: 08/02/22 Narrative: Preoperative diagnosis: Sebaceous cyst right posterior shoulder Postoperative diagnosis: same Procedure: excision of sebaceous cyst right posterior shoulder Surgeon: Demario Germain MD Software Quality Engineer: none Anesthesia: Sensorcaine 0.5% with epinephrine plus bicarbonate Indications for procedure: 77-year-old female with a previous history of an infected sebaceous cyst of the right posterior shoulder presenting now for excision to prevent future infections. Operative findings: 2 cm sebaceous cyst of posterior shoulder with scar tissue consistent with previous infection. Specimen: Sebaceous cyst posterior shoulder right Estimated blood loss: 10 mL Complications: none Procedure details: patient was brought to the OR placed in a Prone position. The site of surgery was confirmed by the patient in the posterior right shoulder. After assuring informed consent the skin was prepped with Betadine and draped in a sterile fashion. Local anesthesia was infiltrated circumferentially in longitudinal fashion. Elliptical incision was then created around the sebaceous cyst to include the central punctum and scar tissue. Incision was carried out through subcutaneous tissue and around the cyst wall. Lesion was passed off the table and sent to pathology for further examination. Hemostasis was assured with light pressure. Deep dermis was then closed using interrupted 3-0 Polysorb sutures. Skin was closed using interrupted 3-0 nylon sutures. Sterile dressings consisting of 2 x 2 gauze and Tegaderm were then applied. The patient tolerated the procedure well. She was discharged to home in stable condition.
== END 2022-08-02 10:58 | disposition home or self-care (01) ==
LOC: HO.MS 10:57
PROVIDERS: PCP Internal Medicine; Visit Provider Surgery
PROC: (CPT 11404; principal; 2022-08-02 11:10)
DX: L72.3 Sebaceous cyst (principal)
CPT/HCPCS: 11404; 88304

== ENCOUNTER 2022-08-09 07:23 | Outpatient (REF) | payer MEDICARE, SELFPAY ==
[2022-08-09 08:24] LABS: Basophils Percent Auto 0.4 % (0-2); Eosinophils Absolute Auto 0.1 X10*3/uL (0.0-0.4); Eosinophils Percent Auto 1.6 % (0-4); Hematocrit 32.5 % (37.0-47.0); Hemoglobin 10.7 g/dl (12.0-16.0); Imm Gran Abs Auto 0.16 X10*3/uL (0.00-0.03); Imm Gran Pct Auto 3.6 % (0.0-0.4); Lymphocytes Absolute Auto 0.9 X10*3/uL (1.2-4.9); Lymphocytes Percent Auto 19.6 % (20-40); MANUAL DIFF FLAG SCAN; Mean Corpuscular HGB Conc 32.9 g/dl (31.0-35.0); Mean Corpuscular Hemoglobin 30.1 pg (27.0-33.0); Mean Corpuscular Volume 91.5 fL (80.0-98.0); Mean Platelet Volume 9.9 fL (9.4-12.3); Monocytes Absolute Auto 1.1 X10*3/uL (0.1-1.2); Monocytes Percent Auto 24.7 % (2-11); Neutrophils Absolute Auto 2.2 x10*3/uL (2.0-8.3); Neutrophils Percent Auto 50.1 % (45-73); Platelet Count 233 X10*3/uL (160-400); Red Blood Count 3.55 X10*6/uL (4.20-5.50); SCAN SMEAR FLAG 1; White Blood Count 4.5 X10*3/uL (4.8-10.8)
[2022-08-09 08:38] LABS: Estimated Average Glucose 194 mg/dL; Hemoglobin A1c % 8.4 %
[2022-08-09 08:52] LABS: Alanine Aminotransferase 19 U/L (0-31); Anion Gap 12 (12-20); Aspartate Amino Transferase 16 U/L (5-31); Blood Urea Nitrogen 18 mg/dL (9-16); Calcium 9.4 mg/dL (8.4-10.2); Carbon Dioxide 26 mmol/L (22-29); Chloride 103 mmol/L (96-108); Cholesterol 209 mg/dL; Estimated Glomerular Filt Rate > 60; Glucose Fasting 210 mg/dL (60-99); HDL Cholesterol 53 mg/dL; Iron 119 mcg/dL (30-160); LDL Cholesterol Calculated 118 mg/dl; Percent Iron Saturation 34 % (15-50); Potassium 4.5 mmol/L (3.3-5.1); Sodium 136 mmol/L (135-145); Total Iron Binding Capacity 354 mcg/dL (228-428); Triglycerides 193 mg/dL; Unsaturated Iron Binding 235 ug/dL
[2022-08-09 09:10] LABS: Vitamin D 25-OH Total 64.4 ng/mL (>30)
[2022-08-09 09:18] LABS: SLIDE REVIEW VERIFIED
== END 2022-08-09 07:24 | disposition home or self-care (01) ==
LOC: HO.LAB 07:23
PROVIDERS: PCP Internal Medicine; Visit Provider Internal Medicine
DX: D50.9 Iron deficiency anemia, unspecified (principal); E11.29 Type 2 diabetes mellitus with other diabetic kidney complication; E66.9 Obesity, unspecified; E78.5 Hyperlipidemia, unspecified; I10 Essential (primary) hypertension; R80.9 Proteinuria, unspecified; L72.0 Epidermal cyst
CPT/HCPCS: 36415; 80048; 80061; 82306; 83036; 83540; 84450; 84460; 85025; 99212

== ENCOUNTER 2022-08-10 13:26 | Outpatient (AMB) | payer MEDICARE, SELFPAY ==
--- NOTE | 2022-08-10 13:27 | A.OFFPC_ITS ---
Vital Signs 08/10/22 13:29 Height 5 ft 3 in Weight 200 lb BMI 35.4 BP 144/62 H Blood Pressure Location Rt brachial Position Sitting Pulse 102 H Pulse Source Pulse Oximeter Pulse Oximetry (%) 98 Oxygen Delivery Method Room Air Intake Visit Reasons: 3 mon follow up after labs Intake Note: Pt is here today to f/u recent labs Allergies penicillin V Allergy (Unknown, Verified 11/09/22 13:39) Unknown Medication List - Last Reconciled 08/10/22 by Radha Diaz MD blood sugar diagnostic (FreeStyle Lite Strips) Check Fasting blood sugar once a day as directed blood-glucose meter (FreeStyle [place] Lite kit) check fasting lood sugar once a day cholecalciferol (vitamin D3) 1,250 mcg PO QWEEK 3 months [diabetes shoes with inserts As directed] [diabetic shoes As directed] ferrous fumarate 324 mg PO DAILY FreeStyle Nerissa 2 Sensor (flash glucose sensor) check blood sugar as directed NS lancets (I & CombineTouch Safety Lancets) Check fasting blood sugar once a day As directed lorazepam 0.5 mg PO DAILY PRN losartan 100 mg PO DAILY 90 days magnesium oxide 500 mg PO DAILY metformin ER 1,000 mg (2 x 500 mg) PO BID rosuvastatin 5 mg PO Q2D 3 months Tobacco use date assessed: 08/10/22 Fall risk assessment: No Falls in past year Last assessed Fall Risk: 08/10/22 HPI 3 mon follow up after labs HPI Details 77-year-old lady with diabetes mellitus, hypertension and dyslipidemia, here today for follow-up. She has been compliant with taking her medications, but admits to not always following recommended diet. She has does stay active but has no regular exercise. [facility] Medical History Asymptomatic age-related postmenopausal state Diabetes mellitus with microalbuminuria, without long-term current use of insulin Dyslipidemia HTN (hypertension) Leukopenia Plantar fasciitis, bilateral Surgical History History of removal of cyst (08/02/22) History of total abdominal hysterectomy and bilateral salpingo-oophorectomy Family History Father Medical history non-contributory Mother Medical history non-contributory Social History Housing: House Alcohol intake: current Patient Tobacco Use Status: Never used Tobacco e-Cigarette/Vaping Use: Never Used Second Hand Smoke Exposure: No service: No Current occupational status: retired Cognitive needs: No Hearing needs: No Vision needs: No Questionnaire PHQ-9 Over the last 2 weeks, how often have you been bothered by any of the following problems? Depression Screening Interpretation: Negative Source: Developed by Drs. Blair Davis, Lila Ferris, Monico Cisneros and colleagues, with an educational hilario from [employer]. Thrive Questionnaire Date Thrive assessed: 08/23/21 SHAHID-7 AMB Questionnaire SHAHID-7 Date SHAHID - 7 assessed: 08/23/21 Source: Developed by Drs. Blair Davis, Lila Ferris, Monico Cisneros and colleagues, with an educational hilario from [employer]. Review of Systems Const Denies body aches, Denies fatigue, Denies fever(s), Denies frequent falls, Denies malaise, Denies poor appetite and Denies weakness Eyes Details: Sees [facility] Reports no additional complaints ENT Reports Normal hearing present Card Denies chest pain, Denies lightheadedness and Denies dyspnea Resp Denies chest congestion, Denies cough, Denies dyspnea and Denies wheezing GI Denies abdominal pain, Denies change in bowel habits and Denies heartburn Reports nocturia, Denies dysuria and Reports urinary incontinence Musc Reports arthralgias ( both feet) and Denies numbness Skin/Breast Reports as per HPI Neuro Reports Normal hearing present, Denies frequent falls, Denies memory loss, Denies numbness, Denies Sensory deficit (Neuro) and Denies weakness Psych Reports as per HPI and Denies memory loss Endo Denies fatigue, Denies polydipsia and Denies polyuria Pratik/Lymph Denies easy bruising Aller/Immun Denies seasonal rhinorrhea and Denies wheezing Physical exam (Primary Care) Vital Signs: Last Vital Signs Pulse 102 H 08/10/22 13:29 BP 144/62 H 08/10/22 13:29 Pulse Ox 98 08/10/22 13:29 Oxygen Delivery Method Room Air 08/10/22 13:29 BMI result Body Mass Index 35.4 BMI Assessment/Plan discussion: High BMI High, discussed plan: lifestyle, weight reduction, dietary, physical activity and alcohol moderation Tobacco/Smoking Status: Tobacco use Status Tobacco use date assessed 08/10/22 08/10/22 13:30 Patient Tobacco Use Status Never used Tobacco 08/10/22 13:30 e-Cigarette/Vaping Use Never Used 08/10/22 13:30 Depression Screening Interpretation: Negative Thrive Assessment: Date of Thrive Assessment Date Thrive assessed 08/23/21 08/10/22 13:30 Const General: comfortable, no acute distress and alert Nutritional Appearance: obese Orientation/consciousness: patient oriented x3 HENMT Mouth: Normal oral and palatal mucosa present, oropharynx normal and moist mucous membranes Eyes General: appearance normal, both eyes and all related structures Neck Neck: Yes full ROM, Yes no lymphadenopathy and Yes supple Resp Auscultation: clear to auscultation bilaterally Cardio Rate: regular rate Rhythm: regular rhythm Heart sounds: S1 normal heart sound present and S2 normal heart sound present GI Palpation (GI): Soft to palpation, nontender, no guarding and no masses General: Yes no CVA tenderness Back/Spine/Pelvis Back: no CVA tenderness and No back tenderness Neuro General: patient oriented x3 Cranial nerves: Yes Normal hearing present Sensory Exam: No Sensory deficit (Neuro) Extrem General: Yes full ROM, Yes no joint enlargement, Yes no pedal edema, Yes no calf tenderness and Yes normal gait Results Reviewed Results Reviewed: ENTERED: 08/09/22 EDUARDO EWING: ORDERED: CBC Auto Diff, SLIDE REVIEW Test Result Flag Reference Site WBC 4.5 L 4.8-10.8 X10*3/uL RBC 3.55 L 4.20-5.50 X10*6/uL HGB 10.7 L 12.0-16.0 g/dl HCT 32.5 L 37.0-47.0 % MCV 91.5 80.0-98.0 fL MCH 30.1 27.0-33.0 pg MCHC 32.9 31.0-35.0 g/dl RDW 13.0 11.0-16.0 % PLT 233 160-400 X10*3/uL MPV 9.9 9.4-12.3 fL Neut Pct Auto 50.1 45-73 % ImGran Pct Auto 3.6 H 0.0-0.4 % Lymp Pct Auto 19.6 L 20-40 % Blaine Pct Auto 24.7 H 2-11 % Eos Pct Auto 1.6 0-4 % Baso Pct Auto 0.4 0-2 % NRBC Pct Auto 0.0 0.0-0.2 /100WBC ANC Neut Abs # 2.2 2.0-8.3 x10*3/uL ImGran Abs Auto 0.16 H 0.00-0.03 X10*3/uL Lymph Abs Auto 0.9 L 1.2-4.9 X10*3/uL Blaine Abs Auto 1.1 0.1-1.2 X10*3/uL Eos Abs Auto 0.1 0.0-0.4 X10*3/uL Baso Abs Auto 0.0 0.0-0.2 X10*3/uL NRBC Abs Auto 0.000 0.0-0.012 X10*3/uL SLIDE REVIEW VERIFIED ENTERED: 08/09/[address] [facility]: ORDERED: Met Prof Fast, IRON PROF, AST, ALT, Lipid Panel, Vitamin D 25-OH Test Result Flag Reference Site Sodium 136 135-145 mmol/L Potassium 4.5 3.3-5.1 mmol/L CL 103 96-108 mmol/L CO2 26 22-29 mmol/L Gap 12 12-20 BUN 18 H 9-16 mg/dL Creat 0.81 0.5-1.4 mg/dL EGFR > 60 NOTE: For -[place]is[place] individuals, multiply the result by 1.210. Chronic Kidney Disease: Estimated GFR < 60 mL/min/1.73m2 Severe Kidney Disease: Estimated GFR < 15 mL/min/1.73m2 FBS 210 H 60-99 mg/dL A fasting glucose of 126 mg/dl or greater on more than one occasion is considered diagnostic of diabetes. CA 9.4 8.4-10.2 mg/dL Iron 119 30-160 mcg/dL TIBC 354 228-428 mcg/dL Saturation 34 15-50 % UIBC 235 ug/dL AST (GOT) 16 5-31 U/L ALT (GPT) 19 0-31 U/L Triglyceride 193 mg/dL Desirable Triglyceride: less than 150 mg/dL Borderline High Triglyceride 150-199 mg/dL High Triglyceride: 200-499 mg/dL Very High Triglyceride: greater than or equal to 5OO mg/dL Chol 209 mg/dL Desirable Cholesterol: less than 200 mg/dL Borderline High Cholesterol: 200-239 mg/dL High Cholesterol: greater than 239 mg/dL LDL Calculated 118 mg/dl Desirable LDL: less than 100 mg/dL Near Optimal/Above Optimal LDL: 110-129 mg/dL Borderline High LDL: 130-159 mg/dL High LDL: 160-189 mg/dL Very High LDL: greater than or equal to 190 mg/dL HDL 53 mg/dL Desirable HDL: greater than 40 mg/dL Note: This HDL assay may give artificially low results in patients with liver disease. Vit D 25-OH Tot 64.4 >30 ng/mL Health Based Reference Values* < 20 ng/mL Deficient 20-30 ng/mL Insufficient > 30 ng/mL Sufficient ENTERED: 08/09/2228 EDUARDO EWING: ORDERED: Hgb A1c Test Result Flag Reference Site A1c % 8.4 % Hemoglobin A1C Reference Range Adults: 4.8 - 6.0 % Non diabetic: < 6.0 % Goal: < 7.0 % Additional Action Suggested: > 8.0 % Note: Hemoglobin A1c results are invalid for patients with abnormal amounts of HbF. Blood transfusions may impact the HbA1c concentration in the patient sample. Est. Avg. Gluc 194 mg/dL eAG = Estimated average glucose which is %A1C express ed as average glucose, using the formula of the [id number] Average Glucose study (ADAG), Diabetes Care, Vol.31,#8, 2007 Assessment and Plan Assessment & Plan (1) Diabetes mellitus with microalbuminuria, without long-term current use of insulin: Code(s): E11.29 - Type 2 diabetes mellitus with other diabetic kidney complication; R80.9 - Proteinuria, unspecified Plan: Diabetes not well controlled, with a hemoglobin A1c today at 8.4%. Continued on metformin ER 1000 mg tablet taken twice a day, and added Januvia 100 mg per tablet taken once a day. Continue checking blood sugar with freestyle Nerissa, stressed importance of adhering to recommended diet and getting regular exercise. Will check diabetes again in 3 month (2) Dyslipidemia: Code(s): E78.5 - Hyperlipidemia, unspecified Plan: Reviewed recent fasting lipid panel today with patient with LDL cholesterol not at goal of less than 100 mg/dL. Continued on rosuvastatin 5 mg every other day, and advised adherence to low-cholesterol diet and getting regular exercise. Will repeat another fasting lipid panel in 3 months (3) HTN (hypertension): Code(s): I10 - Essential (primary) hypertension Plan: Blood pressure not at goal of less than 130/80. Will continue on losartan 100 mg taken once a day in a.m.. Reinforced importance of following a low sodium diet, getting regular exercise, and lowering stress levels. (4) Microcytic hypochromic anemia: Code(s): D50.9 - Iron deficiency anemia, unspecified Plan: Stressed compliance with taking iron supplements. Will check again another iron profile and CBC in 3 month (5) Obesity (BMI 30.0-34.9): Code(s): E66.9 - Obesity, unspecified Plan: Discussed need to increase activity and wt reduction. Recommended focusing on improving your health instead of dieting. : Eat Mediterranean diet, limit foods high in fat, sugar, and calories, eat slowly, pay attention to portion sizes, plan your meals ahead of time, start regular physical activity 150 minutes of moderate intensity exercise or 90 minutes/week of vigorous exercise and increase water intake. Orders: Orders Lipid Panel 3 Months E66.9 - Obesity, unspecified, D50.9 - Iron deficiency anemia, unspecified, E11.29 - Type 2 diabetes mellitus with other diabetic kidney complication, R80.9 - Proteinuria, unspecified, I10 - Essential (primary) hypertension, E78.5 - Hyperlipidemia, unspecified Alanine Aminotransferase 3 Months E66.9 - Obesity, unspecified, D50.9 - Iron deficiency anemia, unspecified, E11.29 - Type 2 diabetes mellitus with other diabetic kidney complication, R80.9 - Proteinuria, unspecified, I10 - Essential (primary) hypertension, E78.5 - Hyperlipidemia, unspecified Basic Metabolic Panel Fasting 3 Months E66.9 - Obesity, unspecified, D50.9 - Iron deficiency anemia, unspecified, E11.29 - Type 2 diabetes mellitus with other diabetic kidney complication, R80.9 - Proteinuria, unspecified, I10 - E ssential (primary) hypertension, E78.5 - Hyperlipidemia, unspecified IRON PROFILE 3 Months E66.9 - Obesity, unspecified, D50.9 - Iron deficiency anemia, unspecified, E11.29 - Type 2 diabetes mellitus with other diabetic kidney complication, R80.9 - Proteinuria, unspecified, I10 - Essential (primary) hypertension, E78.5 - Hyperlipidemia, unspecified Vitamin D 25-OH Total 3 Months E66.9 - Obesity, unspecified, D50.9 - Iron deficiency anemia, unspecified, E11.29 - Type 2 diabetes mellitus with other diabetic kidney complication, R80.9 - Proteinuria, unspecified, I10 - Essential (primary) hypertension, E78.5 - Hyperlipidemia, unspecified Hemoglobin A1c 3 Months E66.9 - Obesity, unspecified, D50.9 - Iron deficiency anemia, unspecified, E11.29 - Type 2 diabetes mellitus with other diabetic kidney complication, R80.9 - Proteinuria, unspecified, I10 - Essential (primary) hypertension, E78.5 - Hyperlipidemia, unspecified Aspartate Amino Transferase 3 Months E66.9 - Obesity, unspecified, D50.9 - Iron deficiency anemia, unspecified, E11.29 - Type 2 diabetes mellitus with other diabetic kidney complication, R80.9 - Proteinuria, unspecified, I10 - Essential (primary) hypertension, E78.5 - Hyperlipidemia, unspecified Complete Blood Count Auto Diff 3 Months E66.9 - Obesity, unspecified, D50.9 - Iron deficiency anemia, unspecified, E11.29 - Type 2 diabetes mellitus with other diabetic kidney complication, R80.9 - Proteinuria, unspecified, I10 - Essential (primary) hypertension, E78.5 - Hyperlipidemia, unspecified Medications: New Januvia (sitagliptin phosphate) 100 mg PO DAILY 90 tabs 2RF NS E11.29 - Type 2 diabetes mellitus with other diabetic kidney complication, R80.9 - Proteinuria, unspecified Changed From [diabetes shoes with inserts] As directed 1 ea 0RF E11.29 - Type 2 diabetes mellitus with other diabetic kidney complication, R80.9 - Proteinuria, uns pecified To [diabetes shoes with inserts] As directed 1 ea 0RF E11.29 - Type 2 diabetes mellitus with other diabetic kidney complication, R80.9 - Proteinuria, unspecified Coding Level of Care Code Est Pt Level 4 (81172) Diagnoses Diabetes mellitus with microalbuminuria, without long-term current use of insulin E11.; R80.9 Dyslipidemia E78.5 HTN (hypertension) I10 Microcytic hypochromic anemia D50.9 Obesity (BMI 30.0-34.9) E66.9
[2022-08-10 13:29] VITALS: BP 144/62; PULSE 102; O2SAT 98; BMI 35.4
== END 2022-08-10 14:08 | disposition home or self-care (01) ==
LOC: HO.HMGC 13:26
PROVIDERS: PCP Internal Medicine; Visit Provider Internal Medicine
DX: E11.29 Type 2 diabetes mellitus with other diabetic kidney complication (principal); I10 Essential (primary) hypertension; E66.9 Obesity, unspecified; Z68.35 Body mass index [BMI] 35.0-35.9, adult; D50.9 Iron deficiency anemia, unspecified; R80.9 Proteinuria, unspecified; E78.5 Hyperlipidemia, unspecified
CPT/HCPCS: 99214

== ENCOUNTER 2022-11-08 08:13 | Outpatient (REF) | payer MEDICARE, SELFPAY ==
[2022-11-08 11:27] LABS: Basophils Percent Auto 0.6 % (0-2); Eosinophils Absolute Auto 0.1 X10*3/uL (0.0-0.4); Eosinophils Percent Auto 1.1 % (0-4); Hematocrit 32.1 % (37.0-47.0); Hemoglobin 10.6 g/dl (12.0-16.0); Imm Gran Abs Auto 0.08 X10*3/uL (0.00-0.03); Imm Gran Pct Auto 1.7 % (0.0-0.4); Lymphocytes Absolute Auto 0.9 X10*3/uL (1.2-4.9); Lymphocytes Percent Auto 19.7 % (20-40); MANUAL DIFF FLAG SCAN; Mean Corpuscular Hemoglobin 30.6 pg (27.0-33.0); Mean Corpuscular Volume 92.8 fL (80.0-98.0); Mean Platelet Volume 10.5 fL (9.4-12.3); Monocytes Absolute Auto 1.1 X10*3/uL (0.1-1.2); Monocytes Percent Auto 23.5 % (2-11); Neutrophils Absolute Auto 2.5 x10*3/uL (2.0-8.3); Neutrophils Percent Auto 53.4 % (45-73); Platelet Count 232 X10*3/uL (160-400); Red Blood Count 3.46 X10*6/uL (4.20-5.50); Red Cell Distribution Width 13.2 % (11.0-16.0); SCAN SMEAR FLAG 1; White Blood Count 4.7 X10*3/uL (4.8-10.8)
[2022-11-08 11:59] LABS: SLIDE REVIEW VERIFIED
[2022-11-08 12:34] LABS: Estimated Average Glucose 163 mg/dL; Hemoglobin A1c % 7.3 % (<6.0)
[2022-11-08 14:43] LABS: Alanine Aminotransferase 21 U/L (0-31); Anion Gap 11 (12-20); Aspartate Amino Transferase 22 U/L (5-31); Blood Urea Nitrogen 19 mg/dL (9-16); Calcium 9.8 mg/dL (8.4-10.2); Carbon Dioxide 26 mmol/L (22-29); Chloride 105 mmol/L (96-108); Cholesterol 153 mg/dL (<200); Estimated Glomerular Filt Rate > 60; Glucose Fasting 153 mg/dL (60-99); HDL Cholesterol 52 mg/dL (>40); Iron 101 mcg/dL (30-160); LDL Cholesterol Calculated 72 mg/dL (<100); Percent Iron Saturation 31 % (15-50); Potassium 4.3 mmol/L (3.3-5.1); Sodium 138 mmol/L (135-145); Total Iron Binding Capacity 326 mcg/dL (228-428); Triglycerides 146 mg/dL (<150); Unsaturated Iron Binding 225 ug/dL
[2022-11-08 15:03] LABS: Vitamin D 25-OH Total 39.2 ng/mL (>30)
== END 2022-11-08 08:14 | disposition home or self-care (01) ==
LOC: HO.HMGCLDS 08:13
PROVIDERS: PCP Internal Medicine; Visit Provider Internal Medicine
DX: D50.9 Iron deficiency anemia, unspecified (principal); E11.29 Type 2 diabetes mellitus with other diabetic kidney complication; E78.5 Hyperlipidemia, unspecified; I10 Essential (primary) hypertension; R80.9 Proteinuria, unspecified; E66.9 Obesity, unspecified
CPT/HCPCS: 36415; 80048; 80061; 82306; 83036; 83540; 84450; 84460; 85025

== ENCOUNTER 2022-11-09 13:16 | Outpatient (AMB) | payer MEDICARE, SELFPAY ==
--- NOTE | 2022-11-09 13:17 | MHC.PC.OV ---
Vital Signs 11/09/22 13:26 Height 5 ft 3 in Weight 196 lb BMI 34.7 BP 132/50 L Blood Pressure Location Rt brachial Position Sitting Pulse 89 Pulse Source Pulse Oximeter Pulse Oximetry (%) 97 Oxygen Delivery Method Room Air Intake Visit Reasons: 3m dm,lipids,anemia Intake Note: Pt is here today for her 3 months DM,lipids and anemia Allergies penicillin V Allergy (Unknown, Verified 11/09/22 13:39) Unknown Medication List - Last Reconciled 11/09/22 by Radha Diaz MD blood sugar diagnostic (FreeStyle Lite Strips) Check Fasting blood sugar once a day as directed blood-glucose meter (FreeStyle Evant Lite kit) check fasting lood sugar once a day [diabetes shoes with inserts As directed] [diabetic shoes As directed] ferrous fumarate 324 mg PO DAILY FreeStyle Nerissa 2 Sensor (flash glucose sensor) check blood sugar as directed NS Januvia (sitagliptin phosphate) 100 mg PO DAILY NS lancets (CareTouch Safety Lancets) Check fasting blood sugar once a day As directed losartan 100 mg PO DAILY 90 days magnesium oxide 500 mg PO DAILY metformin ER 1,000 mg (2 x 500 mg) PO BID rosuvastatin 5 mg PO Q2D 3 months Tobacco use date assessed: 08/10/22 Fall risk assessment: No Falls in past year Last assessed Fall Risk: 11/09/22 Dental Screening Dental Screen Date: 11/09/22 Did you have a dental visit in the last 12 months?: Yes Did you have a dental problem in the last 6 months where you did not have access to dental care?: Yes Was dental information given to patient?: Patient has dentist HPI 3m dm,lipids,anemia HPI Details 77-year-old lady here today for follow-up on her diabetes mellitus, hyperlipidemia, and anemia. Has not been taking her iron supplements regularly, but latest iron profile are within normal limits. CBC however still showed presence of leukopenia and microcytic hypochromic anemia, unchanged from last check. Patient however does not complain of any shortness of breath, no chest pain, no palpitations or lightheadedness. Recent a hemoglobin A1c came down to 7.3%. Currently taking Januvia 100 mg daily and metformin ER a 1000 mg twice a day. Fasting lipids are within normal limits, currently on rosuvastatin 5 mg every other day, and blood pressure is also controlled on losartan 100 mg daily. She states that she has been trying to follow recommended diet, but states that she loves to eat , and occasionally cheats with ice-cream and junk food. She does walk for exercise as well as swims at the [facility] Medical History Asymptomatic age-related postmenopausal state Diabetes mellitus with microalbuminuria, without long-term current use of insulin Dyslipidemia HTN (hypertension) Leukopenia Plantar fasciitis, bilateral Surgical History History of removal of cyst (08/02/22) History of total abdominal hysterectomy and bilateral salpingo-oophorectomy Family History Father Medical history non-contributory Mother Medical history non-contributory Social History Housing: House Alcohol intake: current Patient Tobacco Use Status: Never used Tobacco e-Cigarette/Vaping Use: Never Used Second Hand Smoke Exposure: No service: No Current occupational status: retired Cognitive needs: No Hearing needs: No Vision needs: No Questionnaire PHQ-9 Over the last 2 weeks, how often have you been bothered by any of the following problems? 1. Little interest or pleasure in doing things: not at all 2. Feeling down, depressed, or hopeless: not at all 3. Trouble falling or staying asleep, or sleeping too much: not at all 4. Feeling tired or having little energy: not at all 5. Poor appetite or overeating: not at all 6. Feeling bad about yourself - or that you are a failure or have let yourself or your family down: not at all 7. Trouble concentrating on things, such as reading the newspaper or watching television: not at all 8. Moving or speaking so slowly that other people could have noticed. Or the opposite - being so fidgety or restless that you have been moving around a lot more than usual: not at all 9. Thoughts that you would be better off or of hurting yourself in some way: not at all Total score: 0 Depression Screening Interpretation: Negative 44046 - PHQ-9 Billing: Yes Source: Developed by Drs. Blair Davis, Monico Singh and colleagues, with an educational hilaroi from [employer] Thrive Questionnaire Date Thrive assessed: 11/09/22 I am a: Patient What is your living situation today?: I have a steady place to live Within the past 12 months, did the food you bought not last and you didn't have the money to get more?: Never true Within the past 12 months, did you worry whether your food would run out before you got money to buy more?: Never true Do you have trouble paying for medicines?: No Do you have trouble getting transportation to medical appointments?: No Do you have trouble paying your heating and electricity bill?: No Do you have trouble taking care of your child, family member or friend?: No Do you have trouble with day-to-day activities such as bathing, preparing meals, shopping, managing finances, etc.?: No Are you currently unemployed and looking for a job?: No Are you interested in more education?: No Please select the resources that you would like help with: None AUDIT C Alcohol Use Questionnaire (AUDIT-C) 1. How often do you have a drink containing alcohol?: 2-3 times a week (pablo with remi) 3. How often do you have six or more drinks on one occasion?: Never Total Score: 3 Score Reviewed/Action Taken: Yes SHAHID-7 AMB Questionnaire SHAHID-7 Date SHAHID - 7 assessed: 11/09/22 Feeling nervous, anxious, or on edge: 0 = Not at all Not being able to stop or control worryin = Not at all Worrying too much about different things: 0 = Not at all Trouble relaxin = Not at all Being so restless that it is hard to sit still: 0 = Not at all Becoming easily annoyed or irritable: 0 = Not at all Feeling afraid as if something awful might happen: 0 = Not at all Total SHAHID-7 score (0-4 normal; 5-9 mild; 10-14 moderate; 15-21 severe): 0 Source: Developed by Lila Torrez Kurt Kroenke and colleagues, with an educational hilario from [employer] SHAHID-7 Assessment Billing SHAHID-7 Assessment Tool: SHAHID-7 Assessment 34442 Review of Systems Const Denies body aches, Denies fatigue, Denies fever(s), Denies frequent falls, Denies headache(s), Denies malaise, Denies poor appetite and Denies weakness Eyes Details: Sees [facility] Reports no additional complaints ENT Reports Normal hearing present and Denies headache(s) Card Denies chest pain, Denies lightheadedness, Denies palpitations and Denies dyspnea Resp Denies chest congestion, Denies cough, Denies dyspnea and Denies wheezing GI Denies abdominal pain, Denies change in bowel habits and Denies heartburn Reports nocturia, Denies dysuria, Reports urinary incontinence and Reports urinary urgency Musc Reports arthralgias ( both feet) and Denies numbness Skin/Breast Reports as per HPI Neuro Reports Normal hearing present, Denies frequent falls, Denies headache(s), Denies memory loss, Denies numbness, Denies Sensory deficit (Neuro) and Denies weakness Psych Reports as per HPI and Denies memory loss Endo Denies fatigue, Denies polydipsia, Denies polyuria and Denies palpitations Pratik/Lymph Denies easy bruising Aller/Immun Denies seasonal rhinorrhea and Denies wheezing Physical exam (Primary Care) Vital Signs: Last Vital Signs Pulse 89 11/09/22 13:26 BP 132/50 L 11/09/22 13:26 Pulse Ox 97 11/09/22 13:26 Oxygen Delivery Method Room Air 11/09/22 13:26 BMI result Body Mass Index 34.7 BMI Assessment/Plan discussion: High BMI High, discussed plan: lifestyle, weight reduction, dietary, physical activity and alcohol moderation Tobacco/Smoking Status: Tobacco use Status Tobacco use date assessed 08/10/22 11/09/22 13:18 Patient Tobacco Use Status Never used Tobacco 11/09/22 13:18 e-Cigarette/Vaping Use Never Used 11/09/22 13:18 Depression Screening Interpretation: Negative Thrive Assessment: Date of Thrive Assessment Date Thrive assessed 08/23/21 11/09/22 13:18 Const General: comfortable, no acute distress and alert Nutritional Appearance: obese Orientation/consciousness: patient oriented x3 Limitations: no limitations HENMT Mouth: Normal oral and palatal mucosa present, oropharynx normal and moist mucous membranes Eyes General: appearance normal, both eyes and all related structures Neck Neck: Yes full ROM, Yes no lymphadenopathy and Yes supple Chest Breast/axilla palpation: normal palpation of the breasts and normal palpation of the axillae Resp Auscultation: clear to auscultation bilaterally Cardio Rate: regular rate Rhythm: regular rhythm Heart sounds: S1 normal heart sound present and S2 normal heart sound present GI Palpation (GI): Soft to palpation, nontender, no guarding and no masses General: Yes no CVA tenderness Back/Spine/Pelvis Back: no CVA tenderness and No back tenderness Neuro General: patient oriented x3 Cranial nerves: Yes Normal hearing present Sensory Exam: No Sensory deficit (Neuro) Extrem General: Yes full ROM, Yes no joint enlargement, Yes no pedal edema, Yes no calf tenderness and Yes normal gait Results Reviewed Results Reviewed: Laboratory Tests 08/09/22 11/08/22 07:46 08:18 Estimat Average Glucose 194 163 Hemoglobin A1c % 8.4 7.3 H Name: Cecilia López Age/Sex: 77/F : 1945 Unit#: [id number] Attend Dr: Radha Diaz MD Re11/08/22 Status: DEP REF Location: [facility] [place] Disch: SPEC : [id number] HEATHER: 11/08/22 STATUS: COMP REQ : [id number] RECD: 11/08/[address]: Radha Diaz MD COMP: 11/08/22 ENTERED: 11/08/22 [facility] DR: ORDERED: CBC Auto Diff, SLIDE REVIEW Test Result Flag Reference Site WBC 4.7 L 4.8-10.8 X10*3/uL RBC 3.46 L 4.20-5.50 X10*6/uL HGB 10.6 L 12.0-16.0 g/dl HCT 32.1 L 37.0-47.0 % MCV 92.8 80.0-98.0 fL MCH 30.6 27.0-33.0 pg MCHC 33.0 31.0-35.0 g/dl RDW 13.2 11.0-16.0 % PLT 232 160-400 X10*3/uL ENTERED: 11/08/22 EDUARDO EWING: ORDERED: Met Prof Fast, IRON PROF, AST, ALT, Lipid Panel, Vitamin D 25-OH Test Result Flag Reference Site Sodium 138 135-145 mmol/L Potassium 4.3 3.3-5.1 mmol/L CL 105 96-108 mmol/L CO2 26 22-29 mmol/L Gap 11 L 12-20 BUN 19 H 9-16 mg/dL Creat 0.82 0.5-1.4 mg/dL EGFR > 60 NOTE: For -Dutch individuals, multiply the result by 1.210. Chronic Kidney Disease: Estimated GFR < 60 mL/min/1.73m2 Severe Kidney Disease: Estimated GFR < 15 mL/min/1.73m2 FBS 153 H 60-99 mg/dL A fasting glucose of 126 mg/dl or greater on more than one occasion is considered diagnostic of diabetes. CA 9.8 8.4-10.2 mg/dL Iron 101 30-160 mcg/dL TIBC 326 228-428 mcg/dL Saturation 31 15-50 % UIBC 225 ug/dL AST (GOT) 22 5-31 U/L ALT (GPT) 21 0-31 U/L Triglyceride 146 <150 mg/dL Desirable Triglyceride: less than 150 mg/dL Borderline High Triglyceride 150-199 mg/dL High Triglyceride: 200-499 mg/dL Very High Triglyceride: greater than or equal to 5OO mg/dL Cholesterol 153 <200 mg/dL Desirable Cholesterol: less than 200 mg/dL Borderline High Cholesterol: 200-239 mg/dL High Cholesterol: greater than 239 mg/dL LDL Calculated 72 <100 mg/dL Desirable LDL: less than 100 mg/dL Near Optimal/Above Optimal LDL: 110-129 mg/dL Borderline High LDL: 130-159 mg/dL High LDL: 160-189 mg/dL Very High LDL: greater than or equal to 190 mg/dL HDL 52 >40 mg/dL Desirable HDL: greater than 40 mg/dL Note: This HDL assay may give artificially low results in patients with liver disease. Vit D 25-OH Tot 39.2 >30 ng/mL Health Based Reference Values* < 20 ng/mL Deficient 20-30 ng/mL Insufficient > 30 ng/mL Sufficient Assessment and Plan Assessment & Plan (1) Microcytic hypochromic anemia: Code(s): D50.9 - Iron deficiency anemia, unspecified Plan: Latest iron levels are within normal limits, still with microcytic hyperchromic anemia, referred to hematology for further evaluation management, Cologuard testing done last year came back negative (2) Leukopenia: Code(s): D72.819 - Decreased white blood cell count, unspecified Plan: Hematology consult ordered (3) Diabetes mellitus with microalbuminuria, without long-term current use of insulin: Code(s): E11.29 - Type 2 diabetes mellitus with other diabetic kidney complication; R80.9 - Proteinuria, unspecified Plan: Diabetes control improving, now with a hemoglobin A1c at 7.3%. Continue with regular eye exam a [facility], continue with med for min and Januvia, continue to check fasting blood sugar at home, maintain log and bring to next appointment for review. Reinforced diabetic diet and regular exercise with patient. Counseled regarding importance of yearly diabetes retinopathy screening. Patient advised to inspect feet daily, for any signs of injury, callus or infection. Compliance with diet and regular exercise again stressed. Blood pressure goal is less than 130/80, goal LDL is less than 100 and goal hemoglobin A1c is less than 7% follow-up appointment made in--3-months, after fasting labs done. (4) HTN (hypertension): Code(s): I10 - Essential (primary) hypertension Plan: Blood pressure at goal of less than 130/80. Continue with current medication. Reinforced importance of following a low sodium diet, getting regular exercise, and lowering stress levels. (5) Dyslipidemia: Code(s): E78.5 - Hyperlipidemia, unspecified Plan: Reviewed recent fasting lipid profile with patient with levels at goal . Continue with rosuvastatin 5 mg 1 tablet every other day , in addition to adherence to low-cholesterol diet and regular exercise, at least 30 minutes 3 to 4 times a week. Advised patient to make healthy food choices, eat more fruits, vegetables, whole grains, wild caught fish and low-fat dairy. Limit amount of meat and fried or fatty food products, as well as processed foods and fast foods. Follow-up scheduled with repeat fasting lipid panel in 3 months. Orders: Orders Alanine Aminotransferase 02/03/23 D50.9 - Iron deficiency anemia, unspecified, D72.819 - Decreased white blood cell count, unspecified, E11.29 - Type 2 diabetes mellitus with other diabetic kidney complication, E78.5 - Hyperlipidemia, unspecified, I10 - Essential (primary) hypertension, R80.9 - Proteinuria, unspecified Aspartate Amino Transferase 02/03/23 D50.9 - Iron deficiency anemia, unspecified, D72.819 - Decreased white blood cell count, unspecified, E11.29 - Type 2 diabetes mellitus with other diabetic kidney complication, E78.5 - Hyperlipidemia, unspecified, I10 - Essential (primary) hypertension, R80.9 - Proteinuria, unspecified Basic Metabolic Panel Fasting 02/03/23 D50.9 - Iron deficiency anemia, unspecified, D72.819 - Decreased white blood cell count, unspecified, E11.29 - Type 2 diabetes mellitus with other diabetic kidney complication, E78.5 - Hyperlipidemia, unspecified, I10 - Essential (primary) hypertension, R80.9 - Proteinuria, unspecified Hemoglobin A1c 02/03/23 D50.9 - Iron deficiency anemia, unspecified, D72.819 - Decreased white blood cell count, unspecified, E11.29 - Type 2 diabetes mellitus with other diabetic kidney complication, E78.5 - Hyperlipidemia, unspecified, I10 - Essential (primary) hypertension, R80.9 - Proteinuria, unspecified Lipid Panel 02/03/23 D50.9 - Iron deficiency anemia, unspecified, D72.819 - Decreased white blood cell count, unspecified, E11.29 - Type 2 diabetes mellitus with other diabetic kidney complication, E78.5 - Hyperlipidemia, unspecified, I10 - Essential (primary) hypertension, R80.9 - Proteinuria, unspecified Complete Blood Count Auto Diff 02/03/23 D50.9 - Iron deficiency anemia, unspecified, D72.819 - Decreased white blood cell count, unspecified, E11.29 - Type 2 diabetes mellitus with other diabetic kidney complication, E78.5 - Hyperlipidemia, unspecified, I10 - Essential (primary) hypertension, R80.9 - Proteinuria, unspecified Referrals Hematology & Oncology Referral D50.9 - Iron deficiency anemia, unspecified, D72.819 - Decreased white blood cell count, unspecified Coding Level of Care Code Est Pt Level 4 (35522) Diagnoses Microcytic hypochromic anemia D50.9 Leukopenia D72.819 Diabetes mellitus with microalbuminuria, without long-term current use of insulin E11.29; R80.9 HTN (hypertension) I10 Dyslipidemia E78.5 Additional Codes SHAHID-7 Assessment Billing - SHAHID-7 Assessment Tool: SHAHID-7 Assessment [id number] ([id number])
[2022-11-09 13:26] VITALS: BP 132/50; PULSE 89; O2SAT 97; BMI 34.7
== END 2022-11-09 14:02 | disposition home or self-care (01) ==
PROVIDERS: PCP Internal Medicine; Visit Provider Internal Medicine
DX: D50.9 Iron deficiency anemia, unspecified (principal); D72.819 Decreased white blood cell count, unspecified; E11.29 Type 2 diabetes mellitus with other diabetic kidney complication; I10 Essential (primary) hypertension; R80.9 Proteinuria, unspecified; E78.5 Hyperlipidemia, unspecified
CPT/HCPCS: 99214

== ENCOUNTER → 2022-12-14 11:18 | Outpatient (BNV) | payer MEDICARE, SELFPAY | PROVIDERS: PCP Internal Medicine; Visit Provider Internal Medicine | DX: D50.9 Iron deficiency anemia, unspecified (principal) | CPT/HCPCS: 99204; 99213 ==

== ENCOUNTER 2023-02-14 08:08 | Outpatient (REF) | payer MEDICARE, SELFPAY ==
[2023-02-14 11:26] LABS: Basophils Percent Auto 0.4 % (0-2); Eosinophils Percent Auto 0.7 % (0-4); Hematocrit 34.2 % (37.0-47.0); Hemoglobin 11.2 g/dl (12.0-16.0); Imm Gran Abs Auto 0.09 X10*3/uL (0.00-0.03); Imm Gran Pct Auto 1.6 % (0.0-0.4); Lymphocytes Absolute Auto 0.9 X10*3/uL (1.2-4.9); Lymphocytes Percent Auto 16.8 % (20-40); MANUAL DIFF FLAG SCAN; Mean Corpuscular HGB Conc 32.7 g/dl (31.0-35.0); Mean Corpuscular Hemoglobin 30.6 pg (27.0-33.0); Mean Corpuscular Volume 93.4 fL (80.0-98.0); Mean Platelet Volume 10.1 fL (9.4-12.3); Monocytes Absolute Auto 1.4 X10*3/uL (0.1-1.2); Monocytes Percent Auto 24.7 % (2-11); Neutrophils Absolute Auto 3.1 x10*3/uL (2.0-8.3); Neutrophils Percent Auto 55.8 % (45-73); Platelet Count 205 X10*3/uL (160-400); Red Blood Count 3.66 X10*6/uL (4.20-5.50); Red Cell Distribution Width 12.7 % (11.0-16.0); SCAN SMEAR FLAG 1; White Blood Count 5.5 X10*3/uL (4.8-10.8)
[2023-02-14 11:37] LABS: Estimated Average Glucose 163 mg/dL; Hemoglobin A1c % 7.3 % (<6.0)
[2023-02-14 11:51] LABS: Alanine Aminotransferase 16 U/L (0-31); Anion Gap 16 (12-20); Aspartate Amino Transferase 19 U/L (5-31); Blood Urea Nitrogen 17 mg/dL (9-16); Calcium 9.5 mg/dL (8.4-10.2); Carbon Dioxide 26 mmol/L (22-29); Chloride 100 mmol/L (96-108); Cholesterol 153 mg/dL (<200); Estimated Glomerular Filt Rate > 60; Glucose Fasting 150 mg/dL (60-99); HDL Cholesterol 53 mg/dL (>40); LDL Cholesterol Calculated 78 mg/dL (<100); Potassium 4.2 mmol/L (3.3-5.1); Sodium 138 mmol/L (135-145); Triglycerides 111 mg/dL (<150)
[2023-02-14 11:54] LABS: SLIDE REVIEW VERIFIED
== END 2023-02-14 08:09 | disposition home or self-care (01) ==
LOC: HO.HMGCLDS 08:08
PROVIDERS: PCP Internal Medicine; Visit Provider Internal Medicine
DX: D72.819 Decreased white blood cell count, unspecified (principal); D50.9 Iron deficiency anemia, unspecified; E11.29 Type 2 diabetes mellitus with other diabetic kidney complication; R80.9 Proteinuria, unspecified; I10 Essential (primary) hypertension; E78.5 Hyperlipidemia, unspecified
CPT/HCPCS: 36415; 80048; 80061; 83036; 84450; 84460; 85025

== ENCOUNTER 2023-02-15 13:13 | Outpatient (AMB) | payer MEDICARE, SELFPAY ==
--- NOTE | 2023-02-15 13:25 | MHC.PC.OV ---
Vital Signs 02/15/23 13:27 Height 5 ft 3 in Weight 185 lb 4 oz BMI 32.8 BP 158/84 H Blood Pressure Location Lt brachial Position Sitting Pulse 64 Pulse Source Pulse Oximeter Pulse Oximetry (%) 97 Oxygen Delivery Method Room Air Intake Visit Reasons: 3m f/u -dm,lipids,anemia Intake Note: pt is here to follow up for lab results Allergies penicillin V Allergy (Intermediate, Verified 02/17/23 00:21) Unknown Medication List - Last Reconciled 02/17/23 by Radha Diaz MD blood sugar diagnostic (FreeStyle Lite Strips) Check Fasting blood sugar once a day as directed blood-glucose meter (FreeStyle Bruce Lite kit) check fasting lood sugar once a day [diabetes shoes with inserts As directed] [diabetic shoes As directed] ferrous fumarate 324 mg PO DAILY FreeStyle Nerissa 2 Sensor (flash glucose sensor) check blood sugar as directed NS Januvia (sitagliptin phosphate) 100 mg PO DAILY NS lancets (CareTouch Safety Lancets) Check fasting blood sugar once a day As directed lorazepam 0.5 mg PO DAILY PRN losartan 100 mg PO DAILY 90 days magnesium oxide 500 mg PO DAILY metformin ER 1,000 mg (2 x 500 mg) PO BID rosuvastatin 5 mg PO Q2D 3 months Tobacco use date assessed: 02/15/23 Fall risk assessment: No Falls in past year Last assessed Fall Risk: 02/15/23 Dental Screening Dental Screen Date: 02/15/23 Did you have a dental visit in the last 12 months?: Yes Did you have a dental problem in the last 6 months where you did not have access to dental care?: No Was dental information given to patient?: Patient has dentist HPI 3m f/u -dm,lipids,anemia HPI Details 77-year-old lady with diabetes mellitus, hypertension, dyslipidemia, here today for follow-up. She has been compliant with taking medications but has been trying to stretch her Januvia prescription takes it every other day, due to high cost of the medicine, now that she is in her donut hole. She also has been sedentary lately, due to the cold weather and has not been very compliant with her diet. Latest fasting labs done showed marked elevation in her glucose levels as compared to her last visit. She also has been experiencing frequent anxiety attacks lately note that the winter season is coming, lives alone, worries about everything. She has a prescription of lorazepam given to her earlier this year does not take every day, but would like to see if she can get another refill, to have on hand during her act acute anxiety attacks. Does not want to start taking any medicine on a regular basis. [facility] Medical History (Updated 02/17/23 @ 00:39 by Radha Diaz MD) Generalized anxiety disorder Leukopenia Diabetes mellitus with microalbuminuria, without long-term current use of insulin Asymptomatic age-related postmenopausal state Plantar fasciitis, bilateral HTN (hypertension) Dyslipidemia Surgical History History of removal of cyst (08/02/22) History of total abdominal hysterectomy and bilateral salpingo-oophorectomy Family History Father Medical history non-contributory Mother Medical history non-contributory Social History Household Members: None Housing: House Alcohol intake: current Patient Tobacco Use Status: Never used Tobacco e-Cigarette/Vaping Use: Never Used Second Hand Smoke Exposure: No service: No Current occupational status: retired Cognitive needs: No Hearing needs: No Vision needs: No Questionnaire PHQ-9 Over the last 2 weeks, how often have you been bothered by any of the following problems? Depression Screening Interpretation: Negative Depression Screening Done: Yes Source: Developed by Drs. Blair Davis, Lila Ferris, Monico Cisneros and colleagues, with an educational hilario from [employer]. Thrive Questionnaire Date Thrive assessed: 11/09/22 SHAHID-7 AMB Questionnaire SHHAID-7 Date SHAHID - 7 assessed: 02/15/23 Feeling nervous, anxious, or on edge: 1 = Several days Not being able to stop or control worryin = Several days Worrying too much about different things: 2 = More than half the days Trouble relaxin = Not at all Being so restless that it is hard to sit still: 0 = Not at all Becoming easily annoyed or irritable: 0 = Not at all Feeling afraid as if something awful might happen: 1 = Several days Total SHAHID-7 score (0-4 normal; 5-9 mild; 10-14 moderate; 15-21 severe): 5 Source: Developed by Drs. Blair Davis, Lila Ferris, Monico Cisneros and colleagues, with an educational hilario from [employer]. Review of Systems Const Denies body aches, Denies fatigue, Denies fever(s), Denies frequent falls, Denies headache(s), Denies malaise, Denies poor appetite and Denies weakness Eyes Details: goes to [facility] for her eye exam Reports no additional complaints ENT Reports Normal hearing present and Denies headache(s) Card Denies chest pain, Denies lightheadedness, Denies palpitations and Denies dyspnea Resp Denies chest congestion, Denies cough, Denies dyspnea and Denies wheezing GI Denies abdominal pain, Denies change in bowel habits and Denies heartburn Reports nocturia, Denies dysuria, Reports urinary incontinence and Reports urinary urgency Musc Reports arthralgias ( both feet) and Denies numbness Skin/Breast Reports as per HPI Neuro Reports Normal hearing present, Denies frequent falls, Denies headache(s), Denies memory loss, Denies numbness, Denies Sensory deficit (Neuro) and Denies weakness Psych Reports as per HPI and Denies memory loss Endo Denies fatigue, Denies polydipsia, Denies polyuria and Denies palpitations Pratik/Lymph Denies easy bruising Aller/Immun Denies seasonal rhinorrhea and Denies wheezing Physical exam (Primary Care) Vital Signs: Last Vital Signs Pulse 64 02/15/23 13:27 BP 158/84 H 02/15/23 13:27 Pulse Ox 97 02/15/23 13:27 Oxygen Delivery Method Room Air 02/15/23 13:27 BMI result Body Mass Index 32.8 BMI Assessment/Plan discussion: High BMI High, discussed plan: lifestyle, weight reduction, dietary, physical activity and alcohol moderation Tobacco/Smoking Status: Tobacco use Status Tobacco use date assessed 02/15/23 02/15/23 13:31 Patient Tobacco Use Status Never used Tobacco 02/15/23 13:31 e-Cigarette/Vaping Use Never Used 02/15/23 13:31 Depression Screening Interpretation: Negative Thrive Assessment: Date of Thrive Assessment Date Thrive assessed 11/09/22 02/15/23 13:31 Const General: comfortable, no acute distress and alert Nutritional Appearance: obese Orientation/consciousness: patient oriented x3 Limitations: no limitations HENMT Mouth: Normal oral and palatal mucosa present, oropharynx normal and moist mucous membranes Eyes General: appearance normal, both eyes and all related structures Neck Neck: Yes full ROM, Yes no lymphadenopathy and Yes supple Resp Auscultation: clear to auscultation bilaterally Cardio Rate: regular rate Rhythm: regular rhythm Heart sounds: S1 normal heart sound present and S2 normal heart sound present GI Palpation (GI): Soft to palpation, nontender, no guarding and no masses General: Yes no CVA tenderness Back/Spine/Pelvis Back: no CVA tenderness and No back tenderness Neuro General: patient oriented x3 Cranial nerves: Yes Normal hearing present Sensory Exam: No Sensory deficit (Neuro) Extrem General: Yes full ROM, Yes no joint enlargement, Yes no pedal edema, Yes no calf tenderness and Yes normal gait Psych Appearance: grossly normal and well kempt Mental Status: mental status grossly normal Speech and movement: Normal speech and movement present Affect: normal affect Attitude: cooperative Thought process: Normal thought process present Results Reviewed Results Reviewed: Name: Cecilia López Age/Sex: 77/F : 1945 Unit#: [id number] Attend Dr: Radha Diaz MD Re02/14/23 Status: DEP REF Location: [facility] Disch: SPEC : [id number] HEATHER: 02/14/23 STATUS: COMP REQ : [id number] RECD: 02/14/[address]: Radha Diaz MD COMP: 02/14/23 ENTERED: 02/14/[address]: ORDERED: CBC Auto Diff, SLIDE REVIEW Test Result Flag Reference Site WBC 5.5 4.8-10.8 X10*3/uL RBC 3.66 L 4.20-5.50 X10*6/uL HGB 11.2 L 12.0-16.0 g/dl HCT 34.2 L 37.0-47.0 % MCV 93.4 80.0-98.0 fL MCH 30.6 27.0-33.0 pg MCHC 32.7 31.0-35.0 g/dl RDW 12.7 11.0-16.0 % PLT 205 160-400 X10*3/uL MPV 10.1 9.4-12.3 fL Neut Pct Auto 55.8 45-73 % ImGran Pct Auto 1.6 H 0.0-0.4 % Lymp Pct Auto 16.8 L 20-40 % [place] Pct Auto 24.7 H 2-11 % Eos Pct Auto 0.7 0-4 % Baso Pct Auto 0.4 0-2 % NRBC Pct Auto 0.0 0.0-0.2 /100WBC ANC Neut Abs # 3.1 2.0-8.3 x10*3/uL ImGran Abs Auto 0.09 H 0.00-0.03 X10*3/uL Lymph Abs Auto 0.9 L 1.2-4.9 X10*3/uL [place] Abs Auto 1.4 H 0.1-1.2 X10*3/uL Eos Abs Auto 0.0 0.0-0.4 X10*3/uL Baso Abs Auto 0.0 0.0-0.2 X10*3/uL NRBC Abs Auto 0.000 0.0-0.012 X10*3/uL SLIDE REVIEW VERIFIED Name: Cecilia López Age/Sex: 77/F : 1945 Unit#: [id number] Attend Dr: Radha Diaz MD Re02/14/23 Status: DEP REF Location: [facility] Disch: SPEC : [id number] HEATHER: 02/14/23 STATUS: COMP REQ : [id number] RECD: 02/14/[address]: Radha Diaz MD COMP: 02/14/23 ENTERED: 02/14/23 [facility] DR: ORDERED: Met Prof Fast, AST, ALT, Lipid Panel Test Result Flag Reference Site Sodium 138 135-145 mmol/L Potassium 4.2 3.3-5.1 mmol/L CL 100 96-108 mmol/L CO2 26 22-29 mmol/L Gap 16 12-20 BUN 17 H 9-16 mg/dL Creat 0.83 0.5-1.4 mg/dL EGFR > 60 NOTE: For -[place]ov[place] individuals, multiply the result by 1.210. Chronic Kidney Disease: Estimated GFR < 60 mL/min/1.73m2 Severe Kidney Disease: Estimated GFR < 15 mL/min/1.73m2 FBS 150 H 60-99 mg/dL A fasting glucose of 126 mg/dl or greater on more than one occasion is considered diagnostic of diabetes. CA 9.5 8.4-10.2 mg/dL AST (GOT) 19 5-31 U/L ALT (GPT) 16 0-31 U/L Triglyceride 111 <150 mg/dL Desirable Triglyceride: less than 150 mg/dL Borderline High Triglyceride 150-199 mg/dL High Triglyceride: 200-499 mg/dL Very High Triglyceride: greater than or equal to 5OO mg/dL Cholesterol 153 <200 mg/dL Desirable Cholesterol: less than 200 mg/dL Borderline High Cholesterol: 200-239 mg/dL High Cholesterol: greater than 239 mg/dL LDL Calculated 78 <100 mg/dL Desirable LDL: less than 100 mg/dL Near Optimal/Above Optimal LDL: 110-129 mg/dL Borderline High LDL: 130-159 mg/dL High LDL: 160-189 mg/dL Very High LDL: greater than or equal to 190 mg/dL HDL 53 >40 mg/dL Desirable HDL: greater than 40 mg/dL Note: This HDL assay may give artificially low results in patients with liver disease. Laboratory Tests 02/14/23 08:23 Estimat Average Glucose 163 Hemoglobin A1c % 7.3 H Assessment and Plan Assessment & Plan (1) Diabetes mellitus with microalbuminuria, without long-term current use of insulin: Code(s): E11.29 - Type 2 diabetes mellitus with other diabetic kidney complication; R80.9 - Proteinuria, unspecified Plan: Recent lab results reviewed with patient, with sugar and hemoglobin A1c now at 7.3%, higher than last visit. Will continue on metformin and Januvia. continue to check fasting blood sugar at home, maintain log and bring to next appointment for review. Reinforced diabetic diet and regular exercise with patient. Counseled regarding importance of yearly diabetes retinopathy screening. Patient advised to inspect feet daily, for any signs of injury, callus or infection. Compliance with diet and regular exercise again stressed. Blood pressure goal is less than 130/80, goal LDL is less than 100 and goal hemoglobin A1c is less than 7% follow-up appointment made in--3-months, after fasting labs done. (2) HTN (hypertension): Code(s): I10 - Essential (primary) hypertension Plan: Blood pressure today higher than last check. Will continue on current dose of losartan. Reinforced importance of following a low sodium diet, getting regular exercise, and lowering stress levels. (3) Dyslipidemia: Code(s): E78.5 - Hyperlipidemia, unspecified Plan: Reviewed recent fasting lipid profile with patient with levels within normal limits . Continue with rosuvastatin 5 mg taken every other day , in addition to adherence to low-cholesterol diet and regular exercise, at least 30 minutes 3 to 4 times a week. Advised patient to make healthy food choices, eat more fruits, vegetables, whole grains, wild caught fish and low-fat dairy. Limit amount of meat and fried or fatty food products, as well as processed foods and fast foods. Follow-up scheduled with repeat fasting lipid panel in 3 months. (4) Generalized anxiety disorder: Code(s): F41.1 - Generalized anxiety disorder Plan: Patient does not want to start any maintenance medication at present time, has been taking her on lorazepam prescription very sparingly, refill sent. Will refer for counseling Orders: Orders Hemoglobin A1c 05/05/23 E11. - Type 2 diabetes mellitus with other diabetic kidney complication, E78.5 - Hyperlipidemia, unspecified, I10 - Essential (primary) hypertension, R80.9 - Proteinuria, unspecified Alanine Aminotransferase 05/05/23 E11. - Type 2 diabetes mellitus with other diabetic kidney complication, E78.5 - Hyperlipidemia, unspecified, I10 - Essential (primary) hypertension, R80.9 - Proteinuria, unspecified Aspartate Amino Transferase 05/05/23 E11.29 - Type 2 diabetes mellitus with other diabetic kidney complication, E78.5 - Hyperlipidemia, unspecified, I10 - Essential (primary) hypertension, R80.9 - Proteinuria, unspecified Basic Metabolic Panel Fasting 05/05/23 E11. - Type 2 diabetes mellitus with other diabetic kidney complication, E78.5 - Hyperlipidemia, unspecified, I10 - Essential (primary) hypertension, R80.9 - Proteinuria, unspecified Lipid Panel 05/05/23 E11. - Type 2 diabetes mellitus with other diabetic kidney complication, E78.5 - Hyperlipidemia, unspecified, I10 - Essential (primary) hypertension, R80.9 - Proteinuria, unspecified Microalbumin, Random (w Creat) 05/05/23 E11.29 - Type 2 diabetes mellitus with other diabetic kidney complication, E78.5 - Hyperlipidemia, unspecified, I10 - Essential (primary) hypertension, R80.9 - Proteinuria, unspecified Medications: Refilled rosuvastatin 5 mg PO Q2D 3 months 45 caps 3RF E78.5 - Hyperlipidemia, unspecified lorazepam 0.5 mg PO DAILY PRN 10 tabs 0RF anxiety Coding Level of Care Code Est Pt Level 4 (45212) Diagnoses Diabetes mellitus with microalbuminuria, without long-term current use of insulin E11.29; R80.9 HTN (hypertension) I10 Dyslipidemia E78.5 Generalized anxiety disorder F41.1
[2023-02-15 13:27] VITALS: BP 158/84; PULSE 64; O2SAT 97; BMI 32.8
== END 2023-02-15 14:28 | disposition home or self-care (01) ==
PROVIDERS: PCP Internal Medicine; Visit Provider Internal Medicine
DX: E11.29 Type 2 diabetes mellitus with other diabetic kidney complication (principal); R80.9 Proteinuria, unspecified; I10 Essential (primary) hypertension; E78.5 Hyperlipidemia, unspecified; F41.1 Generalized anxiety disorder
CPT/HCPCS: 99214

== ENCOUNTER 2023-05-16 08:00 | Outpatient (REF) | payer MEDICARE, SELFPAY ==
[2023-05-16 11:45] LABS: Estimated Average Glucose 160 mg/dL; Hemoglobin A1c % 7.2 % (<6.0)
[2023-05-16 11:49] LABS: Alanine Aminotransferase 16 U/L (0-31); Anion Gap 11 (12-20); Aspartate Amino Transferase 18 U/L (5-31); Blood Urea Nitrogen 17 mg/dL (9-16); Carbon Dioxide 28 mmol/L (22-29); Chloride 105 mmol/L (96-108); Cholesterol 198 mg/dL (<200); Estimated Glomerular Filt Rate > 60; Glucose Fasting 164 mg/dL (60-99); HDL Cholesterol 70 mg/dL (>40); LDL Cholesterol Calculated 101 mg/dL (<100); Potassium 4.4 mmol/L (3.3-5.1); Sodium 140 mmol/L (135-145); Triglycerides 136 mg/dL (<150)
[2023-05-16 12:21] LABS: Creatinine Urine 74.17 mg/dL; Microalbum/Creatinine Ratio Ur 18.8 ug/mg cr (<30)
== END 2023-05-16 08:01 | disposition home or self-care (01) ==
LOC: HO.HMGCLDS 08:00
PROVIDERS: PCP Internal Medicine; Visit Provider Internal Medicine
DX: E11.29 Type 2 diabetes mellitus with other diabetic kidney complication (principal); R80.9 Proteinuria, unspecified; E78.5 Hyperlipidemia, unspecified; I10 Essential (primary) hypertension
CPT/HCPCS: 36415; 80048; 80061; 82043; 82570; 83036; 84450; 84460

== ENCOUNTER 2023-05-17 12:44 | Outpatient (AMB) | payer MEDICARE, SELFPAY ==
[2023-05-17 12:57] VITALS: BP 132/78; PULSE 96; O2SAT 98; BMI 32.4
--- NOTE | 2023-05-17 12:57 | A.OFFPC_ITS ---
Vital Signs 05/17/23 12:57 Height 5 ft 3 in Weight 183 lb BMI 32.4 BP 132/78 Blood Pressure Location Lt brachial Position Sitting Pulse 96 Pulse Source Pulse Oximeter Pulse Oximetry (%) 98 Oxygen Delivery Method Room Air Intake Visit Reasons: 3 month follow up Intake Note: Pt is here today for her 3 m o. f/u Allergies penicillin V Allergy (Intermediate, Verified 05/17/23 13:09) Unknown Medication List - Last Reconciled 05/17/23 by Radha Diaz MD blood sugar diagnostic (FreeStyle Lite Strips) Check Fasting blood sugar once a day as directed blood-glucose meter (FreeStyle [place] Lite kit) check fasting lood sugar once a day [diabetes shoes with inserts As directed] [diabetic shoes As directed] ferrous fumarate 324 mg PO DAILY FreeStyle Nerissa 2 Sensor (flash glucose sensor) check blood sugar as directed NS Januvia (sitagliptin phosphate) 100 mg PO DAILY NS lancets (CareTouch Safety Lancets) Check fasting blood sugar once a day As directed lorazepam 0.5 mg PO DAILY PRN losartan 100 mg PO DAILY 90 days magnesium oxide 500 mg PO DAILY metformin ER 1,000 mg (2 x 500 mg) PO BID rosuvastatin 5 mg PO Q2D 3 months Tobacco use date assessed: 05/17/23 Fall risk assessment: No Falls in past year Last assessed Fall Risk: 05/17/23 Dental Screening Dental Screen Date: 05/17/23 Did you have a dental visit in the last 12 months?: Yes Did you have a dental problem in the last 6 months where you did not have access to dental care?: No Was dental information given to patient?: Patient has dentist HPI 3 month follow up HPI Details 78-year-old lady with diabetes mellitus, with peripheral neuropathy and microalbuminuria, has her lipids, generalized anxiety disorder, history of microcytic hypochromic anemia and intermittent leukopenia, and hypertension, here today for follow-up. She has been compliant with her diet, swims and walks regularly for exercise recent hemoglobin A1c is at 7.2%, has been checking her blood sugar in the morning using her freestyle Nerissa and it usually averages between 150-160 mg per dL in the morning. She is currently on metformin 500 mg takes 2 tablets twice a day with meals and is on Januvia 100 mg daily patient complaining of the high cost of the Januvia when she is on the donut hole, and has to pay full harry for it. Wants to see if there are any other alternatives that she can take. She goes to [facility] for her routine eye exam, last seen January 2023. Requesting a refill prescription for her diabetic shoes with inserts to be sent to prostatic and orthotic specialist in [place]. Complains of intermittent episodes of numbness and tingling in toes of both feet. Latest fasting lipids are within normal limits. Has generalized anxiety disorder, takes lorazepam as needed, usually when she goes out socially. Latest CBC showed presence of mild anemia again with a hemoglobin at 11.2. Patient states that she stop taking her iron supplements as it was making her feel bloated and constipated [facility] Medical History Type 2 diabetes mellitus with peripheral neuropathy Generalized anxiety disorder Leukopenia Diabetes mellitus with microalbuminuria, without long-term current use of insulin Asymptomatic age-related postmenopausal state Plantar fasciitis, bilateral HTN (hypertension) Dyslipidemia Surgical History History of removal of cyst (08/02/22) History of total abdominal hysterectomy and bilateral salpingo-oophorectomy Family History Father Medical history non-contributory Mother Medical history non-contributory Social History Household Members: None Housing: House Alcohol intake: current Patient Tobacco Use Status: Never used Tobacco e-Cigarette/Vaping Use: Never Used Second Hand Smoke Exposure: No service: No Current occupational status: retired Cognitive needs: No Hearing needs: No Vision needs: No Questionnaire PHQ-9 Over the last 2 weeks, how often have you been bothered by any of the following problems? 1. Little interest or pleasure in doing things: not at all 2. Feeling down, depressed, or hopeless: not at all 3. Trouble falling or staying asleep, or sleeping too much: not at all 4. Feeling tired or having little energy: not at all 5. Poor appetite or overeating: not at all 6. Feeling bad about yourself - or that you are a failure or have let yourself or your family down: not at all 7. Trouble concentrating on things, such as reading the newspaper or watching television: not at all 8. Moving or speaking so slowly that other people could have noticed. Or the opposite - being so fidgety or restless that you have been moving around a lot more than usual: not at all 9. Thoughts that you would be better off or of hurting yourself in some way: not at all Total score: 0 Depression Screening Interpretation: Negative Depression Screening Done: Yes 45013 - PHQ-9 Billing: Yes Source: Developed by Drs. Blair Davis, Lila Ferris, Monico Cisneros and colleagues, with an educational hilario from [employer]. Thrive Questionnaire Date Thrive assessed: 05/17/23 I am a: Patient What is your living situation today?: I have a steady place to live Within the past 12 months, did the food you bought not last and you didn't have the money to get more?: Never true Within the past 12 months, did you worry whether your food would run out before you got money to buy more?: Never true Do you have trouble paying for medicines?: No Do you have trouble getting transportation to medical appointments?: No Do you have trouble paying your heating and electricity bill?: No Do you have trouble taking care of your child, family member or friend?: No Do you have trouble with day-to-day activities such as bathing, preparing meals, shopping, managing finances, etc.?: No Are you currently unemployed and looking for a job?: No Are you interested in more education?: No THRIVE Score: 0 AUDIT C Alcohol Use Questionnaire (AUDIT-C) 1. How often do you have a drink containing alcohol?: Never Total Score: 0 SHAHID-7 AMB Questionnaire SHAHID-7 Date SHAHID - 7 assessed: 05/17/23 Feeling nervous, anxious, or on edge: 1 = Several days Not being able to stop or control worryin = Several days Worrying too much about different things: 2 = More than half the days Trouble relaxin = Not at all Being so restless that it is hard to sit still: 0 = Not at all Becoming easily annoyed or irritable: 0 = Not at all Feeling afraid as if something awful might happen: 1 = Several days Total SHAHID-7 score (0-4 normal; 5-9 mild; 10-14 moderate; 15-21 severe): 5 Source: Developed by Drs. Blair Davis, Lila Ferris, Monico Cisneros and colleagues, with an educational hilario from [employer]. SHAHID-7 Assessment Billing SHAHID-7 Assessment Tool: SHAHID-7 Assessment 96346 Review of Systems Const Denies body aches, Denies fatigue, Denies fever(s), Denies frequent falls, Denies headache(s), Denies malaise, Denies poor appetite and Denies weakness Eyes Details: goes to [facility] for her eye exam Reports no additional complaints ENT Reports Normal hearing present and Denies headache(s) Card Denies chest pain, Denies lightheadedness, Denies palpitations and Denies dyspnea Resp Denies chest congestion, Denies cough, Denies dyspnea and Denies wheezing GI Denies abdominal pain, Denies change in bowel habits and Denies heartburn Denies dysuria and Reports urinary incontinence Musc Reports no additional complaints Skin/Breast Reports as per HPI Neuro Reports Normal hearing present, Denies frequent falls, Denies headache(s), Denies Sensory deficit (Neuro) and Denies weakness Psych Reports as per HPI Endo Denies fatigue, Denies polydipsia, Denies polyuria and Denies palpitations Pratik/Lymph Denies easy bruising Aller/Immun Denies seasonal rhinorrhea and Denies wheezing Physical exam (Primary Care) Vital Signs: Last Vital Signs Pulse 96 05/17/23 12:57 BP 132/78 05/17/23 12:57 Pulse Ox 98 05/17/23 12:57 Oxygen Delivery Method Room Air 05/17/23 12:57 BMI result Body Mass Index 32.4 Tobacco/Smoking Status: Tobacco use Status Tobacco use date assessed 05/17/23 05/17/23 13:00 Patient Tobacco Use Status Never used Tobacco 05/17/23 12:57 e-Cigarette/Vaping Use Never Used 05/17/23 12:57 PHQ-9: PHQ-9 Score PHQ-9: Total score 0 05/17/23 13:03 Depression Screening Interpretation: Negative Thrive Assessment: Date of Thrive Assessment Date Thrive assessed 05/17/23 05/17/23 13:03 Const General: comfortable, no acute distress and alert Nutritional Appearance: obese Orientation/consciousness: patient oriented x3 Limitations: no limitations HENMT Mouth: Normal oral and palatal mucosa present, oropharynx normal and moist mucous membranes Eyes General: appearance normal, both eyes and all related structures Neck Neck: Yes full ROM, Yes no lymphadenopathy and Yes supple Resp Auscultation: clear to auscultation bilaterally Cardio Rate: regular rate Rhythm: regular rhythm Heart sounds: S1 normal heart sound present and S2 normal heart sound present GI Palpation (GI): Soft to palpation, nontender, no guarding and no masses General: Yes no CVA tenderness Back/Spine/Pelvis Back: no CVA tenderness and No back tenderness Skin Other: thickened toenail in big toes Neuro General: patient oriented x3 and decrease sensation to monofilament (in both feet) Cranial nerves: Yes Normal hearing present Sensory Exam: No Sensory deficit (Neuro) Extrem General: Yes full ROM, Yes no joint enlargement, Yes no pedal edema, Yes no calf tenderness and Yes normal gait Psych Appearance: grossly normal and well kempt Mental Status: mental status grossly normal Speech and movement: Normal speech and movement present Affect: normal affect Attitude: cooperative Thought process: Normal thought process present Results Reviewed Results Reviewed: NTERED: 05/16/23 EDUARDO EWING: ORDERED: Met Prof Fast, AST, ALT, Lipid Panel Test Result Flag Reference Sodium 140 135-145 mmol/L Potassium 4.4 3.3-5.1 mmol/L CL 105 96-108 mmol/L CO2 28 22-29 mmol/L Gap 11 L 12-20 BUN 17 H 9-16 mg/dL Creat 0.86 0.5-1.4 mg/dL EGFR > 60 NOTE: For -[place] individuals, multiply the result by 1.210. Chronic Kidney Disease: Estimated GFR < 60 mL/min/1.73m2 Severe Kidney Disease: Estimated GFR < 15 mL/min/1.73m2 FBS 164 H 60-99 mg/dL A fasting glucose of 126 mg/dl or greater on more than one occasion is considered diagnostic of diabetes. CA 10.0 8.4-10.2 mg/dL AST (GOT) 18 5-31 U/L ALT (GPT) 16 0-31 U/L Triglyceride 136 <150 mg/dL Desirable Triglyceride: less than 150 mg/dL Borderline High Triglyceride 150-199 mg/dL High Triglyceride: 200-499 mg/dL Very High Triglyceride: greater than or equal to 5OO mg/dL Cholesterol 198 <200 mg/dL Desirable Cholesterol: less than 200 mg/dL Borderline High Cholesterol: 200-239 mg/dL High Cholesterol: greater than 239 mg/dL LDL Calculated 101 H <100 mg/dL Desirable LDL: less than 100 mg/dL Near Optimal/Above Optimal LDL: 110-129 mg/dL Borderline High LDL: 130-159 mg/dL High LDL: 160-189 mg/dL Very High LDL: greater than or equal to 190 mg/dL HDL 70 >40 mg/dL Desirable HDL: greater than 40 mg/dL Note: This HDL assay may give artificially low results in patients with liver disease. Laboratory Tests 05/16/23 08:03 Estimat Average Glucose 160 Hemoglobin A1c % 7.2 H Urine Creatinine 74.17 Urine Microalbumin 14.0 Microalb/Creat Ratio 18.8 Assessment and Plan Assessment & Plan (1) Obesity (BMI 30.0-34.9): Code(s): E66.9 - Obesity, unspecified (2) Microcytic hypochromic anemia: Code(s): D50.9 - Iron deficiency anemia, unspecified Plan: Restart back on iron supplement, and take [id number] Colace 1 prevention of constipation. Evaluated by Hematology in the past, and was told that she had mild intermittent iron deficiency which could be related to dietary factors. Symptoms not suggestive of any underlying malignancy or hematological disorder. (3) Diabetes mellitus with microalbuminuria, without long-term current use of insulin: Code(s): E11.29 - Type 2 diabetes mellitus with other diabetic kidney complication; R80.9 - Proteinuria, unspecified Qualifiers: Diabetes mellitus type: type 2 Qualified Code(s): E11.29 - Type 2 diabetes mellitus with other diabetic kidney complication; R80.9 - Proteinuria, unspecified Plan: Recent lab results reviewed with patient, with sugar and hemoglobin A1c at 7.2%, goal less than 7%. Continue with metformin and Januvia at the same dose, continue to check fasting blood sugar at home, maintain log and bring to next appointment for review. Refill sent for her GoTunese 2. Reinforced diabetic diet and regular exercise with patient. Up-to-date with her yearly diabetes retinopathy screening, goes to [facility]. , Patient advised to inspect feet daily, for any signs of injury, callus or infection. Advised to call her insurance and see what else is covered other than Thad is on formulary.. Has been prescribed Jardiance in the past which patient states she could also not afford. Compliance with diet and regular exercise again stressed. follow-up appointment made in-3 --months, after fasting labs done. (4) HTN (hypertension): Code(s): I10 - Essential (primary) hypertension Qualifiers: Hypertension type: primary hypertension Qualified Code(s): I10 - Essential (primary) hypertension Plan: Continue with losartan 100 mg once a day (5) Dyslipidemia: Code(s): E78.5 - Hyperlipidemia, unspecified Plan: Continue rosuvastatin 5 mg 1 tablet every other day. Repeat fasting lipid panel in 3 months (6) Type 2 diabetes mellitus with peripheral neuropathy: Code(s): E11.42 - Type 2 diabetes mellitus with diabetic polyneuropathy Plan: Prescriptions for diabetic shoes with inserts (7) Generalized anxiety disorder: Code(s): F41.1 - Generalized anxiety disorder Plan: Prescription sent for lorazepam 0.5 mg per tablet to take 1 tablet once a day only as needed for acute anxiety attacks 30 tablets prescribed with no refill Orders: Orders Hemoglobin A1c 08/05/23 D50.9 - Iron deficiency anemia, unspecified, E11.29 - Type 2 diabetes mellitus with other diabetic kidney complication, E11.42 - Type 2 diabetes mellitus with diabetic polyneuropathy, E66.9 - Obesity, unspecified, E78.5 - Hyperlipidemia, unspecified, I10 - Essential (primary) hypertension, R80.9 - Proteinuria, unspecified Magnesium 08/05/23 D50.9 - Iron deficiency anemia, unspecified, E11.29 - Type 2 diabetes mellitus with other diabetic kidney complication, E11.42 - Type 2 diabetes mellitus with diabetic polyneuropathy, E66.9 - Obesity, unspecified, E78.5 - Hyperlipidemia, unspecified, I10 - Essential (primary) hypertension, R80.9 - Proteinuria, unspecified Complete Blood Count Auto Diff 08/05/23 D50.9 - Iron deficiency anemia, unspecified, E11.29 - Type 2 diabetes mellitus with other diabetic kidney complication, E11.42 - Type 2 diabetes mellitus with diabetic polyneuropathy, E66.9 - Obesity, unspecified, E78.5 - Hyperlipidemia, unspecified, I10 - Essential (primary) hypertension, R80.9 - Proteinuria, unspecified Aspartate Amino Transferase 08/05/23 D50.9 - Iron deficiency anemia, unspecified, E11.29 - Type 2 diabetes mellitus with other diabetic kidney complication, E11.42 - Type 2 diabetes mellitus with diabetic polyneuropathy, E66.9 - Obesity, unspecified, E78.5 - Hyperlipidemia, unspecified, I10 - Essential (primary) hypertension, R80.9 - Proteinuria, unspecified Alanine Aminotransferase 08/05/23 D50.9 - Iron deficiency anemia, unspecified, E11.29 - Type 2 diabetes mellitus with other diabetic kidney complication, E11.42 - Type 2 diabetes mellitus with diabetic polyneuropathy, E66.9 - Obesity, unspecified, E78.5 - Hyperlipidemia, unspecified, I10 - Essential (primary) hypertension, R80.9 - Proteinuria, unspecified Vitamin D 25-OH Total 08/05/23 D50.9 - Iron deficiency anemia, unspecified, E11.29 - Type 2 diabetes mellitus with other diabetic kidney complication, E11.42 - Type 2 diabetes mellitus with diabetic polyneuropathy, E66.9 - Obesity, unspecified, E78.5 - Hyperlipidemia, unspecified, I10 - Essential (primary) hypertension, R80.9 - Proteinuria, unspecified IRON PROFILE 08/05/23 D50.9 - Iron deficiency anemia, unspecified Basic Metabolic Panel Fasting 08/05/23 D50.9 - Iron deficiency anemia, unsp ecified, E11.29 - Type 2 diabetes mellitus with other diabetic kidney complication, E11.42 - Type 2 diabetes mellitus with diabetic polyneuropathy, E66.9 - Obesity, unspecified, E78.5 - Hyperlipidemia, unspecified, I10 - Essential (primary) hypertension, R80.9 - Proteinuria, unspecified Lipid Panel 08/05/23 D50.9 - Iron deficiency anemia, unspecified, E11.29 - Type 2 diabetes mellitus with other diabetic kidney complication, E11.42 - Type 2 diabetes mellitus with diabetic polyneuropathy, E66.9 - Obesity, unspecified, E78.5 - Hyperlipidemia, unspecified, I10 - Essential (primary) hypertension, R80.9 - Proteinuria, unspecified Medications: Refilled losartan 100 mg PO DAILY 90 days 90 caps 3RF I10 - Essential (primary) hypertension lorazepam 0.5 mg PO DAILY PRN 30 tabs 0RF anxiety FreeStyle Nerissa 2 Sensor (flash glucose sensor) check blood sugar as directed 2 ea 11RF NS E11.29 - Type 2 diabetes mellitus with other diabetic kidney complication, R80.9 - Proteinuria, unspecified [diabetes shoes with inserts] As directed 1 ea 0RF Diabetes mellitus with peripheral neuropathy E11.29 - Type 2 diabetes mellitus with other diabetic kidney complication, E11.42 - Type 2 diabetes mellitus with diabetic polyneuropathy, R80.9 - Proteinuria, unspecified Coding Level of Care Code Est Pt Level 4 (29000) Diagnoses Obesity (BMI 30.0-34.9) E66.9 Microcytic hypochromic anemia D50.9 Type 2 diabetes mellitus with microalbuminuria, without long-term current use of insulin E11.29; R80.9 Diabetes mellitus type: type 2 Primary hypertension I10 Hypertension type: primary hypertension Dyslipidemia E78.5 Type 2 diabetes mellitus with peripheral neuropathy E11.42 Generalized anxiety disorder F41.1 Additional Codes SHAHID-7 Assessment Billing - SHAHID-7 Assessment Tool: SHAHID-7 Assessment [id number] ([id number])
== END 2023-05-17 13:35 | disposition home or self-care (01) ==
LOC: HO.HMGC 12:44
PROVIDERS: PCP Internal Medicine; Visit Provider Internal Medicine
DX: E11.29 Type 2 diabetes mellitus with other diabetic kidney complication (principal); E11.42 Type 2 diabetes mellitus with diabetic polyneuropathy; E66.9 Obesity, unspecified; Z68.32 Body mass index [BMI] 32.0-32.9, adult; D50.9 Iron deficiency anemia, unspecified; R80.9 Proteinuria, unspecified; I10 Essential (primary) hypertension; E78.5 Hyperlipidemia, unspecified; F41.1 Generalized anxiety disorder
CPT/HCPCS: 99214

== ENCOUNTER 2023-08-25 08:21 | Outpatient (REF) | payer MEDICARE, SELFPAY ==
[2023-08-25 11:34] LABS: Basophils Percent Auto 0.5 % (0-2); Eosinophils Percent Auto 0.7 % (0-4); Hematocrit 32.9 % (37.0-47.0); Imm Gran Abs Auto 0.07 X10*3/uL (0.00-0.03); Imm Gran Pct Auto 1.6 % (0.0-0.4); Lymphocytes Absolute Auto 0.9 X10*3/uL (1.2-4.9); Lymphocytes Percent Auto 22.1 % (20-40); MANUAL DIFF FLAG SCAN; Mean Corpuscular HGB Conc 33.4 g/dl (31.0-35.0); Mean Corpuscular Hemoglobin 30.8 pg (27.0-33.0); Mean Corpuscular Volume 92.2 fL (80.0-98.0); Mean Platelet Volume 10.9 fL (9.4-12.3); Monocytes Absolute Auto 1.1 X10*3/uL (0.1-1.2); Monocytes Percent Auto 26.3 % (2-11); Neutrophils Absolute Auto 2.1 x10*3/uL (2.0-8.3); Neutrophils Percent Auto 48.8 % (45-73); Platelet Count 231 X10*3/uL (160-400); Red Blood Count 3.57 X10*6/uL (4.20-5.50); SCAN SMEAR FLAG 1; White Blood Count 4.3 X10*3/uL (4.8-10.8)
[2023-08-25 11:39] LABS: Estimated Average Glucose 174 mg/dL; Hemoglobin A1c % 7.7 % (<6.0)
[2023-08-25 12:05] LABS: SLIDE REVIEW VERIFIED
[2023-08-25 12:06] LABS: Alanine Aminotransferase 14 U/L (0-31); Anion Gap 10 (12-20); Aspartate Amino Transferase 19 U/L (5-31); Blood Urea Nitrogen 20 mg/dL (9-16); Calcium 9.6 mg/dL (8.4-10.2); Carbon Dioxide 28 mmol/L (22-29); Chloride 101 mmol/L (96-108); Cholesterol 153 mg/dL (<200); Estimated Glomerular Filt Rate > 60; Glucose Fasting 147 mg/dL (60-99); HDL Cholesterol 54 mg/dL (>40); Iron 112 mcg/dL (30-160); LDL Cholesterol Calculated 76 mg/dL (<100); Magnesium 1.8 mg/dL (1.6-2.6); Percent Iron Saturation 33 % (15-50); Potassium 4.3 mmol/L (3.3-5.1); Sodium 135 mmol/L (135-145); Total Iron Binding Capacity 337 mcg/dL (228-428); Triglycerides 117 mg/dL (<150); Unsaturated Iron Binding 225 ug/dL
[2023-08-25 12:08] LABS: Vitamin D 25-OH Total 29.4 ng/mL (>30)
== END 2023-08-25 08:22 | disposition home or self-care (01) ==
LOC: HO.HMGCLDS 08:21
PROVIDERS: PCP Internal Medicine; Visit Provider Internal Medicine
DX: E66.9 Obesity, unspecified (principal); D50.9 Iron deficiency anemia, unspecified; E11.29 Type 2 diabetes mellitus with other diabetic kidney complication; R80.9 Proteinuria, unspecified; I10 Essential (primary) hypertension; E78.5 Hyperlipidemia, unspecified; E11.42 Type 2 diabetes mellitus with diabetic polyneuropathy
CPT/HCPCS: 36415; 80048; 80061; 82306; 83036; 83540; 83735; 84450; 84460; 85025

== ENCOUNTER 2023-08-28 13:04 | Outpatient (AMB) | payer MEDICARE, SELFPAY ==
[2023-08-28 13:07] VITALS: BP 134/66; PULSE 84; O2SAT 96; BMI 34.0
--- NOTE | 2023-08-28 13:07 | A.OFFPC_ITS ---
Vital Signs 08/28/23 13:07 Height 5 ft 3 in Weight 192 lb BMI 34.0 BP 134/66 Blood Pressure Location Lt brachial Position Sitting Pulse 84 Pulse Source Pulse Oximeter Pulse Oximetry (%) 96 Oxygen Delivery Method Room Air Intake Visit Reasons: 3 month follow up Intake Note: Pt is here today for 3 months follow up visit on labs. Allergies penicillin V Allergy (Intermediate, Verified 08/28/23 13:13) Unknown Medication List - Last Reconciled 08/28/23 by Radha Diaz MD blood sugar diagnostic (FreeStyle Lite Strips) Check Fasting blood sugar once a day as directed blood-glucose meter (FreeStyle [place] Lite kit) check fasting lood sugar once a day [diabetes shoes with inserts As directed] [diabetic shoes As directed] ferrous fumarate 324 mg PO DAILY FreeStyle Nerissa 2 Sensor (flash glucose sensor) check blood sugar as directed NS Januvia (sitagliptin phosphate) 100 mg PO DAILY NS lancets (CareTouch Safety Lancets) Check fasting blood sugar once a day As directed lorazepam 0.5 mg PO DAILY PRN losartan 100 mg PO DAILY 90 days magnesium oxide 500 mg PO DAILY metformin ER 1,000 mg (2 x 500 mg) PO BID rosuvastatin 5 mg PO Q2D 3 months Tobacco use date assessed: 08/28/23 Dental Screening Dental Screen Date: 05/17/23 HPI 3 month follow up HPI Details 78-year-old lady with diabetes mellitus, with peripheral neuropathy and microalbuminuria, has her lipids, generalized anxiety disorder, history of microcytic hypochromic anemia and intermittent leukopenia, and hypertension, here today for follow-up. She has been compliant with her diet, swims and walks regularly for exercise recent hemoglobin A1c is at 7.7%, She goes to [facility] for her routine eye exam, last seen January 2023. Has generalized anxiety disorder, takes lorazepam as needed, usually when she goes out socially. Latest fasting labs showed lipids are within normal limits, but vitamin-D is low normal, and still has normocytic normochromic anemia [facility] Medical History (Updated 08/28/23 @ 13:38 by Radha Diaz MD) Type 2 diabetes mellitus with peripheral neuropathy Generalized anxiety disorder Leukopenia Diabetes mellitus with microalbuminuria, without long-term current use of insulin Asymptomatic age-related postmenopausal state Plantar fasciitis, bilateral HTN (hypertension) Dyslipidemia Surgical History History of removal of cyst (08/02/22) History of total abdominal hysterectomy and bilateral salpingo-oophorectomy Family History Father Medical history non-contributory Mother Medical history non-contributory Social History Household Members: None Housing: House Alcohol intake: current Patient Tobacco Use Status: Never used Tobacco e-Cigarette/Vaping Use: Never Used Second Hand Smoke Exposure: No service: No Current occupational status: retired Cognitive needs: No Hearing needs: No Vision needs: No Questionnaire PHQ-9 Over the last 2 weeks, how often have you been bothered by any of the following problems? Depression Screening Interpretation: Negative Depression Screening Done: Yes Source: Developed by Drs. Blair Davis, Lila Ferris, Monico Cisneros and colleagues, with an educational hilario from [employer] Thrive Questionnaire Date Thrive assessed: 05/17/23 SHAHID-7 AMB Questionnaire SHAHID-7 Date SHAHID - 7 assessed: 05/17/23 Source: Developed by Drs. Blair Davis, Lila Ferris, Monico Cisneros and colleagues, with an educational hilario from [employer] Review of Systems Const Denies body aches, Denies fatigue, Denies fever(s), Denies frequent falls, Denies headache(s), Denies malaise, Denies poor appetite and Denies weakness Eyes Details: sees [facility] Reports no additional complaints ENT Reports Normal hearing present and Denies headache(s) Card Denies chest pain, Denies lightheadedness, Denies palpitations and Denies dyspnea Resp Denies chest congestion, Denies cough, Denies dyspnea and Denies wheezing GI Denies abdominal pain, Denies change in bowel habits and Denies heartburn Denies dysuria and Reports urinary incontinence Musc Reports no additional complaints Skin/Breast Reports as per HPI Neuro Reports Normal hearing present, Denies frequent falls, Denies headache(s), Denies Sensory deficit (Neuro) and Denies weakness Psych Reports as per HPI Endo Denies fatigue, Denies polydipsia, Denies polyuria and Denies palpitations Pratik/Lymph Denies easy bruising Aller/Immun Denies seasonal rhinorrhea and Denies wheezing Physical exam (Primary Care) Vital Signs: Last Vital Signs Pulse 84 08/28/23 13:07 BP 134/66 08/28/23 13:07 Pulse Ox 96 08/28/23 13:07 Oxygen Delivery Method Room Air 08/28/23 13:07 BMI result Body Mass Index 34.0 Tobacco/Smoking Status: Tobacco use Status Tobacco use date assessed 08/28/23 08/28/23 13:11 Patient Tobacco Use Status Never used Tobacco 08/28/23 13:10 e-Cigarette/Vaping Use Never Used 08/28/23 13:10 Depression Screening Interpretation: Negative Thrive Assessment: Date of Thrive Assessment Date Thrive assessed 05/17/23 08/28/23 13:10 Const General: comfortable, no acute distress and alert Nutritional Appearance: obese Orientation/consciousness: patient oriented x3 Limitations: no limitations HENMT Mouth: Normal oral and palatal mucosa present, oropharynx normal and moist mucous membranes Eyes General: appearance normal, both eyes and all related structures Neck Neck: Yes full ROM, Yes no lymphadenopathy and Yes supple Resp Auscultation: clear to auscultation bilaterally Cardio Rate: regular rate Rhythm: regular rhythm Heart sounds: S1 normal heart sound present and S2 normal heart sound present GI Palpation (GI): Soft to palpation, nontender, no guarding and no masses General: Yes no CVA tenderness Back/Spine/Pelvis Back: no CVA tenderness and No back tenderness Skin Other: thickened toenail in big toes Neuro General: patient oriented x3 and decrease sensation to monofilament (in both feet) Cranial nerves: Yes Normal hearing present Sensory Exam: No Sensory deficit (Neuro) Extrem General: Yes full ROM, Yes no joint enlargement, Yes no pedal edema, Yes no calf tenderness and Yes normal gait Psych Appearance: grossly normal and well kempt Mental Status: mental status grossly normal Speech and movement: Normal speech and movement present Affect: normal affect Attitude: cooperative Thought process: Normal thought process present Results Reviewed Results Reviewed: Laboratory Tests 05/16/23 08/25/23 08:03 08:25 Estimat Average Glucose 174 Hemoglobin A1c % 7.7 H Urine Creatinine 74.17 Urine Microalbumin 14.0 Microalb/Creat Ratio 18.8 Name: Cecilia López Age/Sex: 78/F : 1945 Unit#: [id number] Attend Dr: Radha Diaz MD Re08/25/23 Status: DEP REF Location: [facility] Disch: SPEC : [id number] HEATHER: 08/25/23 STATUS: COMP REQ : [id number] RECD: 08/25/23-[address]: Radha Diaz MD COMP: 08/25/23 ENTERED: 08/25/[address]: ORDERED: CBC Auto Diff, SLIDE REVIEW Test Result Flag Reference WBC 4.3 L 4.8-10.8 X10*3/uL RBC 3.57 L 4.20-5.50 X10*6/uL HGB 11.0 L 12.0-16.0 g/dl HCT 32.9 L 37.0-47.0 % MCV 92.2 80.0-98.0 fL MCH 30.8 27.0-33.0 pg MCHC 33.4 31.0-35.0 g/dl RDW 13.0 11.0-16.0 % PLT 231 160-400 X10*3/uL MPV 10.9 9.4-12.3 fL Neut Pct Auto 48.8 45-73 % ImGran Pct Auto 1.6 H 0.0-0.4 % Lymp Pct Auto 22.1 20-40 % Franklin Pct Auto 26.3 H 2-11 % Eos Pct Auto 0.7 0-4 % Baso Pct Auto 0.5 0-2 % NRBC Pct Auto 0.0 0.0-0.2 /100WBC ANC Neut Abs # 2.1 2.0-8.3 x10*3/uL ImGran Abs Auto 0.07 H 0.00-0.03 X10*3/uL Lymph Abs Auto 0.9 L 1.2-4.9 X10*3/uL Franklin Abs Auto 1.1 0.1-1.2 X10*3/uL Eos Abs Auto 0.0 0.0-0.4 X10*3/uL Baso Abs Auto 0.0 0.0-0.2 X10*3/uL NRBC Abs Auto 0.000 0.0-0.012 X10*3/uL SLIDE REVIEW VERIFIED Name: Cecilia López Age/Sex: 78/F : 1945 Unit#: [id number] Attend Dr: Radha Diaz MD Re08/25/23 Status: DEP REF Location: [facility] Disch: SPEC : [id number] HEATHER: 08/25/23 STATUS: COMP REQ : [id number] RECD: 08/25/[address]: Radha Diaz MD COMP: 08/25/23 ENTERED: 08/25/23 [facility] DR: ORDERED: Met Prof Fast, MG, IRON PROF, AST, ALT, Lipid Panel, Vitamin D 25-OH Test Result Flag Reference Sodium 135 135-145 mmol/L Potassium 4.3 3.3-5.1 mmol/L CL 101 96-108 mmol/L CO2 28 22-29 mmol/L Gap 10 L 12-20 BUN 20 H 9-16 mg/dL Creat 0.76 0.5-1.4 mg/dL EGFR > 60 NOTE: For -Turkish individuals, multiply the result by 1.210. Chronic Kidney Disease: Estimated GFR < 60 mL/min/1.73m2 Severe Kidney Disease: Estimated GFR < 15 mL/min/1.73m2 FBS 147 H 60-99 mg/dL A fasting glucose of 126 mg/dl or greater on more than one occasion is considered diagnostic of diabetes. CA 9.6 8.4-10.2 mg/dL Magnesium 1.8 1.6-2.6 mg/dL Iron 112 30-160 mcg/dL TIBC 337 228-428 mcg/dL Saturation 33 15-50 % UIBC 225 ug/dL AST (GOT) 19 5-31 U/L ALT (GPT) 14 0-31 U/L Triglyceride 117 <150 mg/dL Desirable Triglyceride: less than 150 mg/dL Borderline High Triglyceride 150-199 mg/dL High Triglyceride: 200-499 mg/dL Very High Triglyceride: greater than or equal to 5OO mg/dL Cholesterol 153 <200 mg/dL Desirable Cholesterol: less than 200 mg/dL Borderline High Cholesterol: 200-239 mg/dL High Cholesterol: greater than 239 mg/dL LDL Calculated 76 <100 mg/dL Desirable LDL: less than 100 mg/dL Near Optimal/Above Optimal LDL: 110-129 mg/dL Borderline High LDL: 130-159 mg/dL High LDL: 160-189 mg/dL Very High LDL: greater than or equal to 190 mg/dL HDL 54 >40 mg/dL Desirable HDL: greater than 40 mg/dL Note: This HDL assay may give artificially low results in patients with liver disease. Vit D 25-OH Tot 29.4 L >30 ng/mL Health Based Reference Values* < 20 ng/mL Deficient 20-30 ng/mL Insufficient > 30 ng/mL Sufficient Assessment and Plan Assessment & Plan (1) Dyslipidemia: Code(s): E78.5 - Hyperlipidemia, unspecified Plan: Reviewed recent fasting lipid profile with patient with levels . Continue rosuvastatin 5 mg every other day , in addition to adherence to low- cholesterol diet and regular exercise, at least 30 minutes 3 to 4 times a week. Advised patient to make healthy food choices, eat more fruits, vegetables, whole grains, wild caught fish and low-fat dairy. Limit amount of meat and fried or fatty food products, as well as processed foods and fast foods. Follow-up scheduled with repeat fasting lipid panel in 3 months. (2) HTN (hypertension): Code(s): I10 - Essential (primary) hypertension Qualifiers: Hypertension type: primary hypertension Qualified Code(s): I10 - Essential (primary) hypertension Plan: Blood pressure at goal of less than 130/80. Continue with current medication. Reinforced importance of following a low sodium diet, getting regular exercise, and lowering stress levels. (3) Microcytic hypochromic anemia: Code(s): D50.9 - Iron deficiency anemia, unspecified Plan: Advised to restart taking ferrous fumarate supplements, 1 tablet once a day, take it with orange juice or vitamin-C for better absorption. Take Colace to prevent constipation while taking the medication. (4) Generalized anxiety disorder: Code(s): F41.1 - Generalized anxiety disorder Plan: Takes lorazepam as needed (5) Type 2 diabetes mellitus with peripheral neuropathy: Code(s): E11.42 - Type 2 diabetes mellitus with diabetic polyneuropathy Plan: Hemoglobin A1c today is at 7.7%, reinforced importance of following recommended diet and getting regular exercise. Will continue on current dose of metformin ER a 1000 mg 1 tablet twice a day, continue with Januvia 100 mg daily and continue checking with freestyle Nerissa Orders: Orders Hemoglobin A1c 11/05/23 E78.5 - Hyperlipidemia, unspecified, I10 - Essential (primary) hypertension, D50.9 - Iron deficiency anemia, unspecified, F41.1 - Generalized anxiety disorder, E11.42 - Type 2 diabetes mellitus with diabetic polyneuropathy, Z00.01 - Encounter for general adult medical examination with abnormal findings Lipid Panel 11/05/23 E78.5 - Hyperlipidemia, unspecified, I10 - Essential (primary) hypertension, D50.9 - Iron deficiency anemia, unspecified, F41.1 - Generalized anxiety disorder, E11.42 - Type 2 diabetes mellitus with diabetic polyneuropathy, Z00.01 - Encounter for general adult medical examination with abnormal findings Alanine Aminotransferase 11/05/23 E78.5 - Hyperlipidemia, unspecified, I10 - Essential (primary) hypertension, D50.9 - Iron deficiency anemia, unspecified, F41.1 - Generalized anxiety disorder, E11.42 - Type 2 diabetes mellitus with diabetic polyneuropathy, Z00.01 - Encounter for general adult medical examinati on with abnormal findings Aspartate Amino Transferase 11/05/23 E78.5 - Hyperlipidemia, unspecified, I10 - Essential (primary) hypertension, D50.9 - Iron deficiency anemia, unspecified, F41.1 - Generalized anxiety disorder, E11.42 - Type 2 diabetes mellitus with diabetic polyneuropathy, Z00.01 - Encounter for general adult medical examination with abnormal findings Basic Metabolic Panel Fasting 11/05/23 E78.5 - Hyperlipidemia, unspecified, I10 - Essential (primary) hypertension, D50.9 - Iron deficiency anemia, unspecified, F41.1 - Generalized anxiety disorder, E11.42 - Type 2 diabetes mellitus with diabetic polyneuropathy, Z00.01 - Encounter for general adult medical examination with abnormal findings Complete Blood Count Auto Diff 11/05/23 E78.5 - Hyperlipidemia, unspecified, I10 - Essential (primary) hypertension, D50.9 - Iron deficiency anemia, unspecified, F41.1 - Generalized anxiety disorder, E11.42 - Type 2 diabetes mellitus with diabetic polyneuropathy, Z00.01 - Encounter for general adult medical examination with abnormal findings Vitamin D 25-OH Total 11/05/23 E78.5 - Hyperlipidemia, unspecified, I10 - Essential (primary) hypertension, D50.9 - Iron deficiency anemia, unspecified, F41.1 - Generalized anxiety disorder, E11.42 - Type 2 diabetes mellitus with diabetic polyneuropathy, Z00.01 - Encounter for general adult medical examination with abnormal findings Coding Level of Care Code Est Pt Level 4 (55041) Complex EM visit Add On G2211 Diagnoses Dyslipidemia E78.5 Primary hypertension I10 Hypertension type: primary hypertension Microcytic hypochromic anemia D50.9 Generalized anxiety disorder F41.1 Type 2 diabetes mellitus with peripheral neuropathy E11.42
== END 2023-08-28 14:00 | disposition home or self-care (01) ==
PROVIDERS: PCP Internal Medicine; Visit Provider Internal Medicine
DX: E78.5 Hyperlipidemia, unspecified (principal); E11.42 Type 2 diabetes mellitus with diabetic polyneuropathy; I10 Essential (primary) hypertension; D50.9 Iron deficiency anemia, unspecified; F41.1 Generalized anxiety disorder
CPT/HCPCS: 99214; G2211

== ENCOUNTER 2023-12-19 08:25 | Outpatient (REF) | payer MEDICARE, SELFPAY ==
[2023-12-19 10:04] LABS: Basophils Percent Auto 0.4 % (0-2); Eosinophils Percent Auto 0.2 % (0-4); Hematocrit 33.1 % (37.0-47.0); Imm Gran Abs Auto 0.08 X10*3/uL (0.00-0.03); Imm Gran Pct Auto 1.6 % (0.0-0.4); Lymphocytes Absolute Auto 1.1 X10*3/uL (1.2-4.9); Lymphocytes Percent Auto 21.7 % (20-40); MANUAL DIFF FLAG SCAN; Mean Corpuscular HGB Conc 33.2 g/dl (31.0-35.0); Mean Corpuscular Hemoglobin 30.7 pg (27.0-33.0); Mean Corpuscular Volume 92.5 fL (80.0-98.0); Mean Platelet Volume 10.5 fL (9.4-12.3); Monocytes Absolute Auto 1.4 X10*3/uL (0.1-1.2); Monocytes Percent Auto 27.6 % (2-11); Neutrophils Absolute Auto 2.4 x10*3/uL (2.0-8.3); Neutrophils Percent Auto 48.5 % (45-73); Platelet Count 178 X10*3/uL (160-400); Red Blood Count 3.58 X10*6/uL (4.20-5.50); Red Cell Distribution Width 12.7 % (11.0-16.0); SCAN SMEAR FLAG 1; White Blood Count 4.9 X10*3/uL (4.8-10.8)
[2023-12-19 10:18] LABS: Estimated Average Glucose 154 mg/dL; Hemoglobin A1C 148.7374 umol/L; Total Hemoglobin (HGBA1C) 2834.0955 umol/L
[2023-12-19 10:33] LABS: Alanine Aminotransferase 18 U/L (0-31); Anion Gap 13 (12-20); Aspartate Amino Transferase 19 U/L (5-31); Blood Urea Nitrogen 21 mg/dL (9-16); Calcium 9.6 mg/dL (8.4-10.2); Carbon Dioxide 26 mmol/L (22-29); Chloride 104 mmol/L (96-108); Cholesterol 148 mg/dL (<200); Estimated Glomerular Filt Rate 59; Glucose Fasting 129 mg/dL (60-99); HDL Cholesterol 50 mg/dL (>40); LDL Cholesterol Calculated 74 mg/dL (<100); Potassium 3.9 mmol/L (3.3-5.1); Sodium 139 mmol/L (135-145); Triglycerides 124 mg/dL (<150)
[2023-12-19 10:38] LABS: Vitamin D 25-OH Total 35.1 ng/mL (>30)
[2023-12-19 10:41] LABS: SLIDE REVIEW VERIFIED
== END 2023-12-19 08:26 | disposition home or self-care (01) ==
LOC: HO.HMGCLDS 08:25
PROVIDERS: PCP Internal Medicine; Visit Provider Internal Medicine
DX: Z00.01 Encounter for general adult medical examination with abnormal findings (principal); E78.5 Hyperlipidemia, unspecified; I10 Essential (primary) hypertension; D50.9 Iron deficiency anemia, unspecified; F41.1 Generalized anxiety disorder; E11.42 Type 2 diabetes mellitus with diabetic polyneuropathy
CPT/HCPCS: 36415; 80048; 80061; 82306; 83036; 84450; 84460; 85025

== ENCOUNTER 2023-12-20 13:29 | Outpatient (AMB) | payer MEDICARE, SELFPAY ==
--- NOTE | 2023-12-20 14:04 | A.OFFPC_ITS ---
Vital Signs 12/20/23 14:05 Height 5 ft 3 in Weight 188 lb 2 oz BMI 33.3 BP 130/70 Blood Pressure Location Lt brachial Position Sitting Pulse 85 Pulse Source Pulse Oximeter Pulse Oximetry (%) 97 Oxygen Delivery Method Room Air Intake Visit Reasons: Annual PE/Last done Intake Note: Patient is here today for a physical. Due for both Colonoscopy and Mammo. Pt decline flu shot today. Portable Trackman Required: No Photographer Lithographic: Not Required per policy Accompanied by: Self / Same As Patient Allergies penicillin V Allergy (Intermediate, Verified 12/20/23 14:31) Unknown Medication List - Last Reconciled 12/20/23 by Radha Diaz MD blood sugar diagnostic (FreeStyle Lite Strips) Check Fasting blood sugar once a day as directed blood-glucose meter (FreeStyle Robards Lite kit) check fasting lood sugar once a day [diabetes shoes with inserts As directed] [diabetic shoes As directed] ferrous fumarate 324 mg PO DAILY FreeStyle Nerissa 2 Sensor (flash glucose sensor) check blood sugar as directed NS Januvia (sitagliptin phosphate) 100 mg PO DAILY NS lancets (CareTouch Safety Lancets) Check fasting blood sugar once a day As directed lorazepam 0.5 mg PO DAILY PRN losartan 100 mg PO DAILY 90 days magnesium oxide 500 mg PO DAILY metformin ER 1,000 mg (2 x 500 mg) PO BID rosuvastatin 5 mg PO Q2D 3 months Tobacco use date assessed: 12/20/23 Fall risk assessment: No Falls in past year Last assessed Fall Risk: 12/20/23 Dental Screening Dental Screen Date: 05/17/23 HPI Annual PE/Last done HPI Details 78 year-old lady with diabetes mellitus, with peripheral neuropathy and microalbuminuria, has dyslipidemia, generalized anxiety disorder, history of microcytic hypochromic anemia with intermittent leukopenia, and hypertension, here today for her physical exam . She has been compliant with her diet, swims 3x a week at the [employer] and walks regularly for exercise, with recent hemoglobin A1c at 7.0%, She goes to [facility] for her routine eye exam, last seen January 2023. Has generalized anxiety disorder, takes lorazepam as needed, usually when she goes out socially. Up-to-date with all her vaccines except for the shingles vaccine [facility] Medical History Type 2 diabetes mellitus with peripheral neuropathy Generalized anxiety disorder Leukopenia Diabetes mellitus with microalbuminuria, without long-term current use of insulin Asymptomatic age-related postmenopausal state Plantar fasciitis, bilateral HTN (hypertension) Dyslipidemia Surgical History History of removal of cyst (08/02/22) History of total abdominal hysterectomy and bilateral salpingo-oophorectomy Family History Father Medical history non-contributory Mother Medical history non-contributory Social History Household Members: None Housing: House Alcohol intake: current Alcohol intake frequency: a few times a month Patient Tobacco Use Status: Never used Tobacco e-Cigarette/Vaping Use: Never Used Second Hand Smoke Exposure: No service: No Current occupational status: retired Cognitive needs: No Hearing needs: No Vision needs: No Questionnaire PHQ-9 Over the last 2 weeks, how often have you been bothered by any of the following problems? Depression Screening Interpretation: Negative Depression Screening Done: Yes Source: Developed by Drs. Blair Davis, Lila Ferris, Monico Cisneros and colleagues, with an educational hilario from [employer]. Thrive Questionnaire Date Thrive assessed: 12/20/23 I am a: Patient What is your living situation today?: I have a steady place to live Within the past 12 months, did the food you bought not last and you didn't have the money to get more?: Never true Within the past 12 months, did you worry whether your food would run out before you got money to buy more?: Never true Do you have trouble paying for medicines?: I choose not to answer this question Do you have trouble getting transportation to medical appointments?: No Do you have trouble paying your heating and electricity bill?: No Do you have trouble taking care of your child, family member or friend?: No Do you have trouble with day-to-day activities such as bathing, preparing meals, shopping, managing finances, etc.?: No Are you interested in more education?: No Please select the resources that you would like help with: None Currently or been in a relationship where the following occur: No concerns reported THRIVE Score: 0 SHAHID-7 AMB Questionnaire SHAHID-7 Date SHAHID - 7 assessed: 05/17/23 Source: Developed by Drs. Blair Davis, Lila Ferris, Monico Cisneros and colleagues, with an educational hilario from [employer]. Review of Systems Const Denies body aches, Denies fatigue, Denies fever(s), Denies frequent falls, Denies headache(s), Denies malaise, Denies poor appetite and Denies weakness Eyes Details: Goes to [facility] for her routine diabetes retinopathy screening Reports no additional complaints ENT Details: Gets her dental prophylaxis every 6 months Reports Normal hearing present and Denies headache(s) Card Denies chest pain, Denies lightheadedness, Denies palpitations and Denies dyspnea Resp Denies chest congestion, Denies cough, Denies dyspnea and Denies wheezing GI Denies abdominal pain, Denies change in bowel habits and Denies heartburn Denies dysuria and Reports urinary incontinence Musc Reports no additional complaints Skin/Breast Reports as per HPI Neuro Reports Normal hearing present, Denies frequent falls, Denies headache(s), Denie s Sensory deficit (Neuro) and Denies weakness Psych Reports as per HPI Endo Denies fatigue, Denies polydipsia, Denies polyuria and Denies palpitations Pratik/Lymph Denies easy bruising Aller/Immun Denies seasonal rhinorrhea and Denies wheezing Physical exam (Primary Care) Vital Signs: Last Vital Signs Pulse 85 12/20/23 14:05 BP 130/70 12/20/23 14:05 Pulse Ox 97 12/20/23 14:05 Oxygen Delivery Method Room Air 12/20/23 14:05 BMI result Body Mass Index 33.3 Tobacco/Smoking Status: Tobacco use Status Tobacco use date assessed 12/20/23 12/20/23 14:12 Patient Tobacco Use Status Never used Tobacco 12/20/23 14:12 e-Cigarette/Vaping Use Never Used 12/20/23 14:12 Depression Screening Interpretation: Negative Thrive Assessment: Date of Thrive Assessment Date Thrive assessed 12/20/23 12/20/23 14:12 Currently or been in a relationship where the following occur: No concerns reported Const General: comfortable, no acute distress and alert Nutritional Appearance: obese Orientation/consciousness: patient oriented x3 Limitations: no limitations HENMT Mouth: Normal oral and palatal mucosa present, oropharynx normal and moist mucous membranes Eyes General: appearance normal, both eyes and all related structures Neck Neck: Yes full ROM, Yes no lymphadenopathy and Yes supple Chest Chest palpation & inspection: normal inspection of the chest Breast/axilla palpation: normal palpation of the breasts Resp Auscultation: clear to auscultation bilaterally Cardio Rate: regular rate Rhythm: regular rhythm Heart sounds: S1 normal heart sound present and S2 normal heart sound present GI Palpation (GI): Soft to palpation, nontender, no guarding and no masses General: Yes no CVA tenderness Back/Spine/Pelvis Back: no CVA tenderness and No back tenderness Skin Other: thickened toenail in big toes Neuro General: patient oriented x3 and decrease sensation to monofilament (in both feet) Cranial nerves: Yes Normal hearing present Sensory Exam: No Sensory deficit (Neuro) Extrem General: Yes full ROM, Yes no joint enlargement, Yes no pedal edema, Yes no calf tenderness and Yes normal gait Psych Appearance: grossly normal and well kempt Mental Status: mental status grossly normal Speech and movement: Normal speech and movement present Affect: normal affect Attitude: cooperative Thought process: Normal thought process present Results Reviewed Results Reviewed: Name: Cecilia López Age/Sex: 78/F : 1945 Unit#: [id number] Attend Dr: Radha Diaz MD Re12/19/23 Status: DEP REF Location: [facility] Disch: SPEC : [id number] HEATHER: 12/19/23 STATUS: COMP REQ : [id number] RECD: 12/19/[address]: Radha Diaz MD COMP: 12/19/23 ENTERED: 12/19/[address]: ORDERED: CBC Auto Diff, SLIDE REVIEW Test Result Flag Reference WBC 4.9 4.8-10.8 X10*3/uL RBC 3.58 L 4.20-5.50 X10*6/uL HGB 11.0 L 12.0-16.0 g/dl HCT 33.1 L 37.0-47.0 % MCV 92.5 80.0-98.0 fL MCH 30.7 27.0-33.0 pg MCHC 33.2 31.0-35.0 g/dl RDW 12.7 11.0-16.0 % PLT 178 160-400 X10*3/uL MPV 10.5 9.4-12.3 fL Neut Pct Auto 48.5 45-73 % ImGran Pct Auto 1.6 H 0.0-0.4 % Lymp Pct Auto 21.7 20-40 % [place] Pct Auto 27.6 H 2-11 % Eos Pct Auto 0.2 0-4 % Baso Pct Auto 0.4 0-2 % NRBC Pct Auto 0.0 0.0-0.2 /100WBC ANC Neut Abs # 2.4 2.0-8.3 x10*3/uL ImGran Abs Auto 0.08 H 0.00-0.03 X10*3/uL Lymph Abs Auto 1.1 L 1.2-4.9 X10*3/uL [place] Abs Auto 1.4 H 0.1-1.2 X10*3/uL Eos Abs Auto 0.0 0.0-0.4 X10*3/uL Baso Abs Auto 0.0 0.0-0.2 X10*3/uL NRBC Abs Auto 0.000 0.0-0.012 X10*3/uL SLIDE REVIEW VERIFIED Name: Cecilia López Age/Sex: 78/F : 1945 Unit#: [id number] Attend Dr: Radha Diaz MD Re12/19/23 Status: DEP REF [facility] Disch: SPEC : [id number] HEATHER: 12/19/23 STATUS: COMP REQ : [id number] RECD: 12/19/23 [facility] DR: Radha Diaz MD COMP: 12/19/23 ENTERED: 12/19/[address]: ORDERED: Met Prof Fast, AST, ALT, Lipid Panel, Vitamin D 25-OH Test Result Flag Reference Sodium 139 135-145 mmol/L Potassium 3.9 3.3-5.1 mmol/L CL 104 96-108 mmol/L CO2 26 22-29 mmol/L Gap 13 12-20 BUN 21 H 9-16 mg/dL Creat 0.92 0.5-1.4 mg/dL EGFR 59 NOTE: For -[place] individuals, multiply the result by 1.210. Chronic Kidney Disease: Estimated GFR < 60 mL/min/1.73m2 Severe Kidney Disease: Estimated GFR < 15 mL/min/1.73m2 FBS 129 H 60-99 mg/dL A fasting glucose of 126 mg/dl or greater on more than one occasion is considered diagnostic of diabetes. CA 9.6 8.4-10.2 mg/dL AST (GOT) 19 5-31 U/L ALT (GPT) 18 0-31 U/L Triglyceride 124 <150 mg/dL Desirable Triglyceride: less than 150 mg/dL Borderline High Triglyceride 150-199 mg/dL High Triglyceride: 200-499 mg/dL Very High Triglyceride: greater than or equal to 5OO mg/dL Cholesterol 148 <200 mg/dL Desirable Cholesterol: less than 200 mg/dL Borderline High Cholesterol: 200-239 mg/dL High Cholesterol: greater than 239 mg/dL LDL Calculated 74 <100 mg/dL Desirable LDL: less than 100 mg/dL Near Optimal/Above Optimal LDL: 110-129 mg/dL Borderline High LDL: 130-159 mg/dL High LDL: 160-189 mg/dL Very High LDL: greater than or equal to 190 mg/dL HDL 50 >40 mg/dL Desirable HDL: greater than 40 mg/dL Note: This HDL assay may give artificially low results in patients with liver disease. Vit D 25-OH Tot 35.1 >30 ng/mL Health Based Reference Values* < 20 ng/mL Deficient 20-30 ng/mL Insufficient > 30 ng/mL Sufficient Laboratory Tests 12/19/23 08:29 Estimat Average Glucose 154 Hemoglobin A1c % 7.0 H Coding Level of Care Code Est Pt Level 4 (80469) Complex EM visit Add On G2211 Diagnoses Dyslipidemia E78.5 Primary hypertension I10 Hypertension type: primary hypertension Diabetes mellitus with microalbuminuria, without long-term current use of insulin E11.29; R80.9 Assessment & Plan Assessment & Plan (1) Dyslipidemia: Code(s): E78.5 - Hyperlipidemia, unspecified Category: Medical Plan: Reviewed recent fasting lipid profile with patient with levels within normal limits . Continue rosuvastatin 5 mg every other day , in addition to adherence to low-cholesterol diet and regular exercise, at least 30 minutes 3 to 4 times a week. Advised patient to make healthy food choices, eat more fruits, vegetables, whole grains, wild caught fish and low-fat dairy. Limit amount of meat and fried or fatty food products, as well as processed foods and fast foods. Follow-up scheduled with repeat fasting lipid panel in 3 months. (2) HTN (hypertension): Code(s): I10 - Essential (primary) hypertension Category: Medical Qualifiers: Hypertension type: primary hypertension Qualified Code(s): I10 - Essential (primary) hypertension Plan: Blood pressure at goal of less than 130/80. Continue losartan 100 mg daily. Reinforced importance of following a low sodium diet, getting regular exercise, and lowering stress levels. (3) Diabetes mellitus with microalbuminuria, without long-term current use of insulin: Code(s): E11.29 - Type 2 diabetes mellitus with other diabetic kidney complication; R80.9 - Proteinuria, unspecified Category: Medical Plan: Recent lab results reviewed with patient, with sugar and hemoglobin A1c stable and at goal , continue metformin ER 1000 mg 1 tablet twice a day continue to check fasting blood sugar at home, maintain log and bring to next appointment for review. Reinforced diabetic diet and regular exercise with patient. Counseled regarding importance of yearly diabetes retinopathy screening, goes to [facility]. Patient advised to inspect feet daily, for any signs of injury, callus or infection. Compliance with diet and regular exercise again stressed. Blood pressure goal is less than 130/80, goal LDL is less than 100 and goal hemoglobin A1c is less than 7% follow-up appointment made in-3--months, after fasting labs done. Orders: Orders Lipid Panel 03/16/24 E11.29 - Type 2 diabetes mellitus with other diabetic kidney complication, E11.42 - Type 2 diabetes mellitus with diabetic polyneuropathy, E78.5 - Hyperlipidemia, unspecified, I10 - Essential (primary) hypertension, R80.9 - Proteinuria, unspecified Vitamin D 25-OH Total 03/16/24 E11.29 - Type 2 diabetes mellitus with other diabetic kidney complication, E11.42 - Type 2 diabetes mellitus with diabetic polyneuropathy, E78.5 - Hyperlipidemia, unspecified, I10 - Essential (primary) hypertension, R80.9 - Proteinuria, unspecified Alanine Aminotransferase 03/16/24 E11.29 - Type 2 diabetes mellitus with other diabetic kidney complication, E11.42 - Type 2 diabetes mellitus with diabetic polyneuropathy, E78.5 - Hyperlipidemia, unspecified, I10 - Essential (primary) hypertension, R80.9 - Proteinuria, unspecified Hemoglobin A1c 03/16/24 E11.29 - Type 2 diabetes mellitus with other diabetic kidney complication, E11.42 - Type 2 diabetes mellitus with diabetic polyneuropathy, E78.5 - Hyperlipidemia, unspecified, I10 - Essential (primary) hypertension, R80.9 - Proteinuria, unspecified Microalbumin, Random (w Creat) 03/16/24 E11.29 - Type 2 diabetes mellitus with other diabetic kidney complication, E11.42 - Type 2 diabetes mellitus with diabetic polyneuropathy, E78.5 - Hyperlipidemia, unspecified, I10 - Essential (primary) hypertension, R80.9 - Proteinuria, unspecified Basic Metabolic Panel Fasting 03/16/24 E11.29 - Type 2 diabetes mellitus with other diabetic kidney complication, E11.42 - Type 2 diabetes mellitus with diabetic polyneuropathy, E78.5 - Hyperlipidemia, unspecified, I10 - Essential (primary) hypertension, R80.9 - Proteinuria, unspecified Aspartate Amino Transferase 03/16/24 E11.29 - Type 2 diabetes mellitus with other diabetic kidney complication, E11.42 - Type 2 diabetes mellitus with diabetic polyneuropathy, E78.5 - Hyperlipidemia, unspecified, I10 - Essential (primary) hypertension, R80.9 - Proteinuria, unspecified
[2023-12-20 14:05] VITALS: BP 130/70; PULSE 85; O2SAT 97; BMI 33.3
== END 2023-12-20 15:06 | disposition home or self-care (01) ==
PROVIDERS: PCP Internal Medicine; Visit Provider Internal Medicine
DX: E78.5 Hyperlipidemia, unspecified (principal); I10 Essential (primary) hypertension; E11.29 Type 2 diabetes mellitus with other diabetic kidney complication; R80.9 Proteinuria, unspecified

== ENCOUNTER → 2023-12-20 13:29 | Outpatient (BNVA) | payer MEDICARE, SELFPAY | PROVIDERS: PCP Internal Medicine; Visit Provider Internal Medicine | DX: E78.5 Hyperlipidemia, unspecified (principal); I10 Essential (primary) hypertension; E11.29 Type 2 diabetes mellitus with other diabetic kidney complication; R80.9 Proteinuria, unspecified | CPT/HCPCS: 99212 ==

== ENCOUNTER 2024-03-07 08:46 | Outpatient (AMB) | payer MEDICARE, SELFPAY ==
--- NOTE | 2024-03-07 08:56 | AM.OFFWIN_ITS ---
Intake Vital Signs 03/07/24 09:02 Weight 192 lb BP 150/90 H Blood Pressure Location Rt brachial Position Sitting Pulse 77 Pulse Source Pulse Oximeter Pulse Oximetry (%) 98 Oxygen Delivery Method Room Air Intake Visit Reasons: EP red spot on back, itchy Intake Note: Patient here for red spot on back that she noticed about 3 weeks ago. Patient Tobacco Use Status: Never used Tobacco Allergies penicillin V Allergy (Intermediate, Verified 03/07/24 09:03) Unknown Do you need a note to return to daycare/school/sports/work: No HPI EP red spot on back, itchy HPI Details This note is constructed using voice recognition software. While every effort has been made to ensure accuracy, animal maintenance supervisor errors may have been included. The patient is a 78 year old female who presents to the clinic today with itchy spot on her back for the past three-week. She notes that about 3 weeks ago she had an itchy back when she was getting out of the shower, she was rubbing the towel over the area, and then rubbing her back on the corner of the wall to help with the itch. She was able to look in the mirror to see that there was a red spot. She continued to have the area, and itch, however tried to mostly ignore it and not scratch it. She has not been able to apply anything to the area. She denies fever, chills, any discharge from the area. She notes that she has had a sebaceous cyst several inches above that area that was removed several years ago, but no other known skin issues. She has had no new soaps, lotions, detergents. [facility] Medical History Type 2 diabetes mellitus with peripheral neuropathy Generalized anxiety disorder Leukopenia Diabetes mellitus with microalbuminuria, without long-term current use of insulin Asymptomatic age-related postmenopausal state Plantar fasciitis, bilateral HTN (hypertension) Dyslipidemia Surgical History History of removal of cyst (08/02/22) History of total abdominal hysterectomy and bilateral salpingo-oophorectomy Family History Father Medical history non-contributory Mother Medical history non-contributory Social History Household Members: None Housing: House Alcohol intake: current Alcohol intake frequency: a few times a month Patient Tobacco Use Status: Never used Tobacco e-Cigarette/Vaping Use: Never Used Second Hand Smoke Exposure: No service: No Current occupational status: retired Cognitive needs: No Hearing needs: No Vision needs: No Review of Systems Const All systems reviewed & are unremarkable except as noted in HPI and below Physical Exam Vital Signs: Last Vital Signs Pulse 77 03/07/24 09:02 BP 150/90 H 03/07/24 09:02 Pulse Ox 98 03/07/24 09:02 Oxygen Delivery Method Room Air 03/07/24 09:02 Const General: cooperative, healthy appearing, comfortable, no acute distress and well developed Orientation/consciousness: patient oriented x3 Limitations: no limitations Resp Effort & Inspection: normal respiratory effort and able to speak in complete sentences Skin Other: Mid back lesion, located approximately the middle of the back from up to down, and 2 cm from the spine. There appears to be an abrasion, with a 1 cm diameter, and 2 mm raised lesion to the lower right border of this abrasion with centralized umbilicated sensation, and pearly appearance. Neuro General: patient oriented x3 Assessment & Plan Assessment & Plan (1) Atypical pigmented lesion: Code(s): L81.9 - Disorder of pigmentation, unspecified Plan: Appears to have an abrasion, with concerning lesion for BCC. Referral placed to Dermatology. Given the itch that she is having in the open abrasion, advised tr ial of hydrocortisone [id number] twice a day for 1-2 weeks for symptomatic management of itch. Advised patient to monitor for any worsening, new symptoms such as erythematous streaking, discharge, odor from the area, which would require additional workup and evaluation. Plan See above for full details and plan. Orders: Referrals Dermatology Referral L81.9 - Disorder of pigmentation, unspecified Coding Level of Care Code Est Pt Level 3 (58025) Diagnoses Atypical pigmented lesion L81.9
[2024-03-07 09:02] VITALS: BP 150/90; PULSE 77; O2SAT 98
== END 2024-03-07 09:26 | disposition home or self-care (01) ==
PROVIDERS: PCP Internal Medicine; Visit Provider Registered Nurse
DX: L81.9 Disorder of pigmentation, unspecified (principal)

== ENCOUNTER → 2024-03-07 08:46 | Outpatient (BNVA) | payer MEDICARE, SELFPAY | PROVIDERS: PCP Internal Medicine; Visit Provider Registered Nurse | DX: L81.9 Disorder of pigmentation, unspecified (principal) | CPT/HCPCS: 99212 ==

== ENCOUNTER 2024-04-12 09:04 | Outpatient (REF) | payer MEDICARE, SELFPAY ==
[2024-04-12 10:53] LABS: Estimated Average Glucose 180 mg/dL; Hemoglobin A1C 177.2269 umol/L; Hemoglobin A1c % 7.9 % (<6.0); Total Hemoglobin (HGBA1C) 2804.3054 umol/L
[2024-04-12 11:46] LABS: Alanine Aminotransferase 14 U/L (0-31); Anion Gap 12 (12-20); Aspartate Amino Transferase 23 U/L (5-31); Blood Urea Nitrogen 19 mg/dL (9-16); Calcium 9.1 mg/dL (8.4-10.2); Carbon Dioxide 24 mmol/L (22-29); Chloride 104 mmol/L (96-108); Cholesterol 160 mg/dL (<200); Estimated Glomerular Filt Rate > 60; Glucose Fasting 140 mg/dL (60-99); HDL Cholesterol 57 mg/dL (>40); LDL Cholesterol Calculated 81 mg/dL (<100); Sodium 136 mmol/L (135-145); Triglycerides 110 mg/dL (<150); Vitamin D 25-OH Total 28.9 ng/mL (>30)
[2024-04-12 12:12] LABS: Creatinine Urine 72.87 mg/dL; Microalbum/Creatinine Ratio Ur 38.4 ug/mg cr (<30)
== END 2024-04-12 09:05 | disposition home or self-care (01) ==
LOC: HO.HMGCLDS 09:04
PROVIDERS: PCP Internal Medicine; Visit Provider Internal Medicine
DX: E11.42 Type 2 diabetes mellitus with diabetic polyneuropathy (principal); E11.29 Type 2 diabetes mellitus with other diabetic kidney complication; R80.9 Proteinuria, unspecified; I10 Essential (primary) hypertension; E78.5 Hyperlipidemia, unspecified
CPT/HCPCS: 36415; 80048; 80061; 82043; 82306; 82570; 83036; 84450; 84460

== ENCOUNTER 2024-04-16 13:12 | Outpatient (AMB) | payer MEDICARE, SELFPAY ==
--- NOTE | 2024-04-16 13:25 | A.OFFPC_ITS ---
Vital Signs 04/16/24 13:26 Height 5 ft 3 in Weight 194 lb BMI 34.4 BP 144/84 H Blood Pressure Location Lt brachial Position Sitting Respiration 16 Pulse 84 Pulse Source Pulse Oximeter Temp 97.3 F Temp Source Oral Pulse Oximetry (%) 97 Oxygen Delivery Method Room Air Intake Visit Reasons: 4 months f/up Allergies penicillin V Allergy (Intermediate, Verified 04/16/24 13:43) Unknown Medication List - Last Reconciled 04/16/24 by Radha Diaz MD blood sugar diagnostic (FreeStyle Lite Strips) Check Fasting blood sugar once a day as directed blood-glucose meter (FreeStyle [place] Lite kit) check fasting lood sugar once a day [diabetes shoes with inserts As directed] [diabetic shoes As directed] FreeStyle Nerissa 2 Sensor (flash glucose sensor) check blood sugar as directed NS Januvia (sitagliptin phosphate) 100 mg PO DAILY NS lancets (CareTouch Safety Lancets) Check fasting blood sugar once a day As directed lorazepam 0.5 mg PO DAILY PRN losartan 100 mg PO DAILY 90 days magnesium oxide 500 mg PO DAILY metformin ER 1,000 mg (2 x 500 mg) PO BID rosuvastatin 5 mg PO Q2D 3 months Tobacco use date assessed: 04/16/24 Fall risk assessment: No Falls in past year Last assessed Fall Risk: 04/16/24 Dental Screening Dental Screen Date: 05/17/23 Did you have a dental visit in the last 12 months?: Yes Did you have a dental problem in the last 6 months where you did not have access to dental care?: No Was dental information given to patient?: Patient has dentist HPI 4 months f/up HPI Details 79-year-old lady with past medical histo ry significant for diabetes mellitus, hypertension, dyslipidemia, here today for follow-up. - She had a lapse in Januvia intake betw een January and March due to affordability, which she resumed three weeks ago. - A1c levels have increased from 7.0 to 7.9, - The patient has been inconsistent with Metformin, taking it only at night and at half the prescribed dosage. - Cholesterol levels have slightly incre ased, though triglyceride levels have decreased. - The patient reports a reduction in vit vides D levels, not consistently supplementing it as advised. - Anemia is present but controlled, susp ected to be a consequence of kidney- related factors due to aging. - The patient is generally active, engag ing in swimming regularly, and maintains some nutritional intake albeit inconsistently. FOR[facility]LY [facility] Medical History Type 2 diabetes mellitus with peripheral neuropathy Generalized anxiety disorder Leukopenia Diabetes mellitus with microalbuminuria, without long-term current use of insulin Asymptomatic age-related postmenopausal state Plantar fasciitis, bilateral HTN (hypertension) Dyslipidemia Surgical History History of removal of cyst (08/02/22) History of total abdominal hysterectomy and bilateral salpingo-oophorectomy Family History Father Medical history non-contributory Mother Medical history non-contributory Social History Household Members: None Housing: House Alcohol intake: current Alcohol intake frequency: a few times a month Patient Tobacco Use Status: Never used Tobacco e-Cigarette/Vaping Use: Never Used Second Hand Smoke Exposure: No service: No Current occupational status: retired Cognitive needs: No Hearing needs: No Vision needs: No Questionnaire PHQ-9 Over the last 2 weeks, how often have you been bothered by any of the following problems? 1. Little interest or pleasure in doing things: not at all 2. Feeling down, depressed, or hopeless: not at all 3. Trouble falling or staying asleep, or sleeping too much: several days 4. Feeling tired or having little energy: several days 5. Poor appetite or overeating: not at all 6. Feeling bad about yourself - or that you are a failure or have let yourself or your family down: not at all 7. Trouble concentrating on things, such as reading the newspaper or watching television: not at all 8. Moving or speaking so slowly that other people could have noticed. Or the opposite - being so fidgety or restless that you have been moving around a lot more than usual: not at all 9. Thoughts that you would be better off or of hurting yourself in some way: not at all Total score: 2 Depression Screening Interpretation: Negative Depression Screening Done: Yes 21931 - PHQ-9 Billing: Yes Source: Developed by Drs. Blair Davis, Lila Ferris, Monico Cisneros and colleagues, with an educational hilario from [employer]. Thrive Questionnaire Date Thrive assessed: 04/16/24 I am a: Patient What is your living situation today?: I have a steady place to live Within the past 12 months, did the food you bought not last and you didn't have the money to get more?: Never true Within the past 12 months, did you worry whether your food would run out before you got money to buy more?: Never true Do you have trouble paying for medicines?: No Do you have trouble getting transportation to medical appointments?: No Do you have trouble paying your heating and electricity bill?: No Do you have trouble taking care of your child, family member or friend?: No Do you have trouble with day-to-day activities such as bathing, preparing meals, shopping, managing finances, etc.?: No Are you currently unemployed and looking for a job?: No Are you interested in more education?: No Please select the resources that you would like help with: None Currently or been in a relationship where the following occur: No concerns reported THRIVE Score: 0 AUDIT C Alcohol Use Questionnaire (AUDIT-C) 1. How often do you have a drink containing alcohol?: 2-4 times a month 2. How many drinks containing alcohol do you have on a typical day when you are drinking?: 1 or 2 3. How often do you have six or more drinks on one occasion?: Never Total Score: 2 SHAHID-7 AMB Questionnaire SHAHID-7 Date SHAHID - 7 assessed: 04/16/24 Feeling nervous, anxious, or on edge: 1 = Several days Not being able to stop or control worryin = Several days Worrying too much about different things: 1 = Several days Trouble relaxin = Not at all Being so restless that it is hard to sit still: 0 = Not at all Becoming easily annoyed or irritable: 0 = Not at all Feeling afraid as if something awful might happen: 0 = Not at all Total SHAHID-7 score (0-4 normal; 5-9 mild; 10-14 moderate; 15-21 severe): 3 Source: Developed by Drs. Blair Davis, Lila Ferris, Monico Cisneros and colleagues, with an educational hilario from [employer]. SHAHID-7 Assessment Billing SHAHID-7 Assessment Tool: SHAHID-7 Assessment 93589 Review of Systems Const Details: - General: Reports being generally active; denies significant recent weight changes. - Endocrine: Denies symptoms of excessive thirst or urination. - Hematologic: Reports history of anemia. - Musculoskeletal: Reports itchiness in the back, suspected eczema. - Dermatologic: Reports residual itchiness in the back. - Neurologic: Denies dizziness or recent falls. - Eyes: Denies changes in vision. - Cardiovascular: Denies chest pain, palpitations. ENT Reports Normal hearing present Neuro Reports Normal hearing present and Denies Sensory deficit (Neuro) Physical exam (Primary Care) Vital Signs: Last Vital Signs Temp 97.3 F 04/16/24 13:26 Pulse 84 04/16/24 13:26 Resp 16 04/16/24 13:26 BP 144/84 H 04/16/24 13:26 Pulse Ox 97 04/16/24 13:26 Oxygen Delivery Method Room Air 04/16/24 13:26 BMI result Body Mass Index 34.4 Tobacco/Smoking Status: Tobacco use Status Tobacco use date assessed 04/16/24 04/16/24 13:31 Patient Tobacco Use Status Never used Tobacco 04/16/24 13:25 e-Cigarette/Vaping Use Never Used 04/16/24 13:25 PHQ-9: PHQ-9 Score PHQ-9: Total score 2 04/16/24 13:43 Depression Screening Interpretation: Negative Thrive Assessment: Date of Thrive Assessment Date Thrive assessed 04/16/24 04/16/24 13:31 Currently or been in a relationship where the following occur: No concerns reported Const General: comfortable, no acute distress and alert Nutritional Appearance: obese Orientation/consciousness: patient oriented x3 Limitations: no limitations HENMT Mouth: Normal oral and palatal mucosa present, oropharynx normal and moist mucous membranes Eyes General: appearance normal, both eyes and all related structures Neck Neck: Yes full ROM, Yes no lymphadenopathy and Yes supple Resp Auscultation: clear to auscultation bilaterally Cardio Rate: regular rate Rhythm: regular rhythm Heart sounds: S1 normal heart sound present and S2 normal heart sound present GI Palpation (GI): Soft to palpation, nontender, no guarding and no masses General: Yes no CVA tenderness Back/Spine/Pelvis Back: no CVA tenderness and No back tenderness Skin Nails: yellow and thickened (Big toenails bilateral) Neuro General: patient oriented x3, gait normal, tone normal, moves all extremities, Normal light touch and pain sensation, no focal motor deficits, CN's II-XI intact bilaterally and normal sensation to monofilament (Bilateral) Cranial nerves: Yes Normal hearing present Sensory Exam: double simultaneous stimulation for sensation normal and Bilaterally stereognosis intact; No Sensory deficit (Neuro) Extrem Other: plantar callus seen bilateral General: Yes full ROM, Yes no joint enlargement, Yes no pedal edema, Yes no calf tenderness and Yes normal gait Psych Appearance: grossly normal and well kempt Mental Status: mental status grossly normal Speech and movement: Normal speech and movement present Affect: normal affect Attitude: cooperative Thought process: Normal thought process present Results Reviewed Results Reviewed: Laboratory Tests 04/12/24 09:09 Estimat Average Glucose 180 Hemoglobin A1c % 7.9 H Urine Creatinine 72.87 Urine Microalbumin 28.0 Microalb/Creat Ratio 38.4 H Name: Cecilia López Age/Sex: 79/F : 1945 Unit#: [id number] Attend Dr: Radha Diaz MD Re04/12/24 Status: DEP REF Location: [facility] Disch: SPEC : [id number] HEATHER: 04/12/24 STATUS: COMP REQ : [id number] RECD: 04/12/24-[address]: Radha Diaz MD COMP: 04/12/24-1146 ENTERED: 04/12/24-[address]: ORDERED: Met Prof Fast, AST, ALT, Lipid Panel, Vitamin D 25-OH Test Result Flag Reference Sodium 136 135-145 mmol/L Potassium 4.0 3.3-5.1 mmol/L CL 104 96-108 mmol/L CO2 24 22-29 mmol/L Gap 12 12-20 BUN 19 H 9-16 mg/dL Creat 0.72 0.5-1.4 mg/dL eGFR > 60 Chronic Kidney Disease: Estimated GFR < 60 mL/min/1.73m2 Severe Kidney Disease: Estimated GFR < 15 mL/min/1.73m2 FBS 140 H 60-99 mg/dL A fasting glucose of 126 mg/dl or greater on more than one occasion is considered diagnostic of diabetes. CA 9.1 8.4-10.2 mg/dL AST (GOT) 23 5-31 U/L ALT (GPT) 14 0-31 U/L Triglyceride 110 <150 mg/dL Desirable Triglyceride: less than 150 mg/dL Borderline High Triglyceride 150-199 mg/dL High Triglyceride: 200-499 mg/dL Very High Triglyceride: greater than or equal to 5OO mg/dL Cholesterol 160 <200 mg/dL Desirable Cholesterol: less than 200 mg/dL Borderline High Cholesterol: 200-239 mg/dL High Cholesterol: greater than 239 mg/dL LDL Calculated 81 <100 mg/dL Desirable LDL: less than 100 mg/dL Near Optimal/Above Optimal LDL: 110-129 mg/dL Borderline High LDL: 130-159 mg/dL High LDL: 160-189 mg/dL Very High LDL: greater than or equal to 190 mg/dL HDL 57 >40 mg/dL Desirable HDL: greater than 40 mg/dL Note: This HDL assay may give artificially low results in patients with liver disease. Vit D 25-OH Tot 28.9 L >30 ng/mL Health Based Reference Values* < 20 ng/mL Deficient 20-30 ng/mL Insufficient > 30 ng/mL Sufficient Coding Level of Care Code Est Pt Level 4 (13109) Complex EM visit Add On G2211 Diagnoses Diabetes mellitus with microalbuminuria, without long-term current use of insulin E11.29; R80.9 Type 2 diabetes mellitus with peripheral neuropathy E11.42 Additional Codes PHQ-9 - 13314 - PHQ-9 Billing: Yes ([id number]) SHAHID-7 Assessment Billing - SHAHID-7 Assessment Tool: SHAHID-7 Assessment 28647 ([id number]) Assessment & Plan Assessment & Plan (1) Diabetes mellitus with microalbuminuria, without long-term current use of insulin: Code(s): E11.29 - Type 2 diabetes mellitus with other diabetic kidney complication; R80.9 - Proteinuria, unspecified Category: Medical (2) Type 2 diabetes mellitus with peripheral neuropathy: Code(s): E11.42 - Type 2 diabetes mellitus with diabetic polyneuropathy Category: Medical Plan - Take Metformin and Januvia consistently as prescribed. - Continue Vitamin D supplementation to correct deficiency. - Follow up with perinatal educator Starr for additional support in blood glucose monitoring and dietary management. - Maintain regular swimming sessions for exercise. - Consider receiving the shingles vaccine for prevention. - Schedule routine blood tests before the next appointment in July. - Monitor blood glucose levels regularly using the Nerissa system as instructed. - Follow nutritional advice to improve diet and avoid high sugar foods. - Contact the clinic or pharmacy if there are questions or issues with medications. Patient was informed and verbally consented to the use of an ambient scribe for clinic note documentation during this visit. Orders: Orders Hemoglobin A1c 07/04/24 E11.29 - Type 2 diabetes mellitus with other diabetic kidney complication, E11.42 - Type 2 diabetes mellitus with diabetic polyn europathy, E66.9 - Obesity, unspecified, E78.5 - Hyperlipidemia, unspecified, F41.1 - Generalized anxiety disorder, I10 - Essential (primary) hypertension, R80.9 - Proteinuria, unspecified Lipid Panel 07/04/24 E11.29 - Type 2 diabetes mellitus with other diabetic kidney complication, E11.42 - Type 2 diabetes mellitus with diabetic polyneuropathy, E66.9 - Obesity, unspecified, E78.5 - Hyperlipidemia, unspecified, F41.1 - Generalized anxiety disorder, I10 - Essential (primary) hypertension, R80.9 - Proteinuria, unspecified Aspartate Amino Transferase 07/04/24 E11.29 - Type 2 diabetes mellitus with other diabetic kidney complication, E11.42 - Type 2 diabetes mellitus with diabetic polyneuropathy, E66.9 - Obesity, unspecified, E78.5 - Hyperlipidemia, unspecified, F41.1 - Generalized anxiety disorder, I10 - Essential (primary) hypertension, R80.9 - Proteinuria, unspecified Alanine Aminotransferase 07/04/24 E11.29 - Type 2 diabetes mellitus with other diabetic kidney complication, E11.42 - Type 2 diabetes mellitus with diabetic polyneuropathy, E66.9 - Obesity, unspecified, E78.5 - Hyperlipidemia, unspecified, F41.1 - Generalized anxiety disorder, I10 - Essential (primary) hypertension, R80.9 - Proteinuria, unspecified Vitamin D 25-OH Total 07/04/24 E11.29 - Type 2 diabetes mellitus with other diabetic kidney complication, E11.42 - Type 2 diabetes mellitus with diabetic polyneuropathy, E66.9 - Obesity, unspecified, E78.5 - Hyperlipidemia, unspecified, F41.1 - Generalized anxiety disorder, I10 - Essential (primary) hypertension, R80.9 - Proteinuria, unspecified Basic Metabolic Panel Fasting 07/04/24 E11.29 - Type 2 diabetes mellitus with other diabetic kidney complication, E11.42 - Type 2 diabetes mellitus with diabetic polyneuropathy, E66.9 - Obesity, unspecified, E78.5 - Hyperlipidemia, unspecified, F41.1 - Generalized anxiety disorder, I10 - Essential (primary) hypertension, R80.9 - Proteinuria, unspecified Medications: New FreeStyle Nerissa 2 Plus Sensor (blood-glucose sensor) As directed 1 ea 10RF NS E11.29 - Type 2 diabetes mellitus with other diabetic kidney complication, E11.42 - Type 2 diabetes mellitus with diabetic polyneuropathy, R80.9 - Proteinuria, unspecified
[2024-04-16 13:26] VITALS: BP 144/84; PULSE 84; RESP 16; TEMP 36.3; O2SAT 97; BMI 34.4
== END 2024-04-16 14:13 | disposition home or self-care (01) ==
PROVIDERS: PCP Internal Medicine; Visit Provider Internal Medicine
DX: E11.29 Type 2 diabetes mellitus with other diabetic kidney complication (principal); R80.9 Proteinuria, unspecified; E11.42 Type 2 diabetes mellitus with diabetic polyneuropathy

== ENCOUNTER → 2024-04-16 13:12 | Outpatient (BNVA) | payer MEDICARE, SELFPAY | PROVIDERS: PCP Internal Medicine; Visit Provider Internal Medicine | DX: E11.29 Type 2 diabetes mellitus with other diabetic kidney complication (principal); R80.9 Proteinuria, unspecified; E11.42 Type 2 diabetes mellitus with diabetic polyneuropathy | CPT/HCPCS: 96127; 99212 ==

== ENCOUNTER → 2024-05-09 13:25 | Outpatient (BNVA) | payer MEDICARE, SELFPAY | PROVIDERS: PCP Internal Medicine ==

== ENCOUNTER 2024-07-17 09:26 | Outpatient (REF) | payer MEDICARE, SELFPAY ==
[2024-07-17 14:11] LABS: Estimated Average Glucose 160 mg/dL; Hemoglobin A1C 159.8455 umol/L; Hemoglobin A1c % 7.2 % (<6.0)
[2024-07-17 14:25] LABS: Alanine Aminotransferase 17 U/L (0-31); Anion Gap 13 (12-20); Aspartate Amino Transferase 28 U/L (5-31); Blood Urea Nitrogen 18 mg/dL (9-16); Calcium 9.8 mg/dL (8.4-10.2); Carbon Dioxide 26 mmol/L (22-29); Chloride 101 mmol/L (96-108); Cholesterol 164 mg/dL (<200); Estimated Glomerular Filt Rate > 60; Glucose Fasting 131 mg/dL (60-99); HDL Cholesterol 57 mg/dL (>40); LDL Cholesterol Calculated 86 mg/dL (<100); Potassium 4.2 mmol/L (3.3-5.1); Sodium 136 mmol/L (135-145); Triglycerides 107 mg/dL (<150)
[2024-07-17 14:27] LABS: Vitamin D 25-OH Total 36.3 ng/mL (>30)
== END 2024-07-17 09:27 | disposition home or self-care (01) ==
LOC: HO.HMGCLDS 09:26
PROVIDERS: PCP Internal Medicine; Visit Provider Internal Medicine
DX: E11.42 Type 2 diabetes mellitus with diabetic polyneuropathy (principal); F41.1 Generalized anxiety disorder; E66.9 Obesity, unspecified; E11.29 Type 2 diabetes mellitus with other diabetic kidney complication; R80.9 Proteinuria, unspecified; I10 Essential (primary) hypertension; E78.5 Hyperlipidemia, unspecified
CPT/HCPCS: 36415; 80048; 80061; 82306; 83036; 84450; 84460

== ENCOUNTER 2024-07-18 13:22 | Outpatient (AMB) | payer MEDICARE, SELFPAY ==
[2024-07-18 13:45] VITALS: BP 132/58; PULSE 74; RESP 16; TEMP 36.3; O2SAT 97; BMI 33.3
--- NOTE | 2024-07-18 13:45 | MHC.PC.OV ---
Vital Signs 07/18/24 13:45 Height 5 ft 3 in Weight 188 lb BMI 33.3 BP 132/58 L Blood Pressure Location Rt brachial Position Sitting Respiration 16 Pulse 74 Pulse Source Pulse Oximeter Temp 97.3 F Temp Source Oral Pulse Oximetry (%) 97 Oxygen Delivery Method Room Air Intake Visit Reasons: 3 months f/up - see comments Intake Note: Pt is here today for 3mo. f/u Allergies penicillin V Allergy (Intermediate, Verified 07/29/24 18:40) Unknown Medication List - Last Reconciled 07/18/24 by Radha Diaz MD blood sugar diagnostic (FreeStyle Lite Strips) Check Fasting blood sugar once a day as directed blood-glucose meter (FreeStyle Almond Lite kit) check fasting lood sugar once a day [diabetes shoes with 3 pair custom inserts As directed] [diabetic shoes As directed] FreeStyle Nerissa 2 Plus Sensor (blood-glucose sensor) As directed NS FreeStyle Nerissa 2 Sensor (flash glucose sensor) check blood sugar as directed NS Januvia (sitagliptin phosphate) 100 mg PO DAILY NS lancets (CareTouch Safety Lancets) Check fasting blood sugar once a day As directed lorazepam 0.5 mg PO DAILY PRN losartan 100 mg PO DAILY 90 days magnesium oxide 500 mg PO DAILY metformin ER 1,000 mg (2 x 500 mg) PO BID rosuvastatin 5 mg PO Q2D 3 months Tobacco use date assessed: 07/18/24 Fall risk assessment: No Falls in past year Last assessed Fall Risk: 07/18/24 Dental Screening Dental Screen Date: 07/18/24 Did you have a dental visit in the last 12 months?: Yes Did you have a dental problem in the last 6 months where you did not have access to dental care?: No Was dental information given to patient?: Patient has dentist HPI 3 months f/up - see comments HPI Details 79-year-old lady with past medical history significant for diabetes mellitus, hypertension, dyslipidemia, here today for follow-up. Latest hemoglobin A1c ist now lower at 7.2%, with fasting lipids within normal limits. Has been feeling well with no complaints at present time except for occasional rash under both breasts usually appearing during the warmer weather. 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 Generalized anxiety disorder Leukopenia Diabetes mellitus with microalbuminuria, without long-term current use of insulin Asymptomatic age-related postmenopausal state Plantar fasciitis, bilateral HTN (hypertension) Dyslipidemia Surgical History History of removal of cyst (08/02/22) History of total abdominal hysterectomy and bilateral salpingo-oophorectomy Family History Father Medical history non-contributory Mother Medical history non-contributory Social History Household Members: None Housing: House Alcohol intake: current Alcohol intake frequency: a few times a month Patient Tobacco Use Status: Never used Tobacco e-Cigarette/Vaping Use: Never Used Second Hand Smoke Exposure: No service: No Current occupational status: retired Cognitive needs: No Hearing needs: No Vision needs: No Questionnaire PHQ-9 Over the last 2 weeks, how often have you been bothered by any of the following problems? Depression Screening Interpretation: Negative Depression Screening Done: Yes Source: Developed by Drs. Blair Davis, Lila Ferris, Monico Cisneros and colleagues, with an educational hilario from [email or web address]. Thrive Questionnaire Date Thrive assessed: 04/16/24 I am a: Patient What is your living situation today?: I have a steady place to live Within the past 12 months, did the food you bought not last and you didn't have the money to get more?: Never true Within the past 12 months, did you worry whether your food would run out before you got money to buy more?: Never true Do you have trouble paying for medicines?: No Do you have trouble getting transportation to medical appointments?: No Do you have trouble paying your heating and electricity bill?: No Do you have trouble taking care of your child, family member or friend?: No Do you have trouble with day-to-day activities such as bathing, preparing meals, shopping, managing finances, etc.?: No Are you currently unemployed and looking for a job?: No Are you interested in more education?: No Please select the resources that you would like help with: None Currently or been in a relationship where the following occur: No concerns reported THRIVE Score: 0 SHAHID-7 AMB Questionnaire SHAHID-7 Date SHAHID - 7 assessed: 04/16/24 Source: Developed by Drs. Blair Davis, Lila Ferris, Monico Cisneros and colleagues, with an educational hilario from [email or web address]. Review of Systems Const Denies body aches, Denies fatigue, Denies headache(s) and Denies weakness Eyes Denies change in vision ENT Reports Normal hearing present and Denies headache(s) Card Denies chest pain, Denies lightheadedness, Denies palpitations and Denies dyspnea Resp Denies chest congestion, Denies cough and Denies dyspnea GI Denies abdominal pain, Denies change in bowel habits and Denies heartburn Denies hematuria, Denies urinary frequency, Denies dysuria and Denies urinary urgency Musc Reports no additional complaints Skin/Breast Denies breast pain, Denies breast mass, Denies lesions and Denies rash Neuro Reports Normal hearing present, Denies headache(s), Denies Sensory deficit (Neuro) and Denies weakness Psych Reports no additional complaints Endo Denies fatigue, Denies polydipsia, Denies polyuria and Denies palpitations Pratik/Lymph Denies easy bruising Aller/Immun Denies seasonal rhinorrhea Physical exam (Primary Care) Vital Signs: Last Vital Signs Temp 97.3 F 07/18/24 13:45 Pulse 74 07/18/24 13:45 Resp 16 07/18/24 13:45 BP 132/58 L 07/18/24 13:45 Pulse Ox 97 07/18/24 13:45 Oxygen Delivery Method Room Air 07/18/24 13:45 BMI result Body Mass Index 33.3 Tobacco/Smoking Status: Tobacco use Status Tobacco use date assessed 07/18/24 07/18/24 13:46 Patient Tobacco Use Status Never used Tobacco 07/18/24 13:46 e-Cigarette/Vaping Use Never Used 07/18/24 13:46 Depression Screening Interpretation: Negative Thrive Assessment: Date of Thrive Assessment Date Thrive assessed 04/16/24 07/18/24 13:46 Currently or been in a relationship where the following occur: No concerns reported Const General: comfortable, no acute distress and alert Nutritional Appearance: obese Orientation/consciousness: patient oriented x3 Limitations: no limitations HENMT Mouth: Normal oral and palatal mucosa present, oropharynx normal and moist mucous membranes Eyes General: appearance normal, both eyes and all related structures Neck Neck: Yes full ROM, Yes no lymphadenopathy and Yes supple Resp Auscultation: clear to auscultation bilaterally Cardio Rate: regular rate Rhythm: regular rhythm Heart sounds: S1 normal heart sound present and S2 normal heart sound present GI Palpation (GI): Soft to palpation, nontender, no guarding and no masses General: Yes no CVA tenderness Back/Spine/Pelvis Back: no CVA tenderness and No back tenderness Skin Other: Mild dry erythematous patch under both breasts Nails: yellow and thickened (Big toenails bilateral) Neuro General: patient oriented x3, gait normal, tone normal, moves all extremities, Normal light touch and pain sensation, no focal motor deficits, CN's II-XI intact bilaterally and normal sensation to monofilament (Bilateral) Cranial nerves: Yes Normal hearing present Sensory Exam: double simultaneous stimulation for sensation normal and Bilaterally stereognosis intact; No Sensory deficit (Neuro) Extrem Other: plantar callus seen bilateral General: Yes full ROM, Yes no joint enlargement, Yes no pedal edema, Yes no calf tenderness and Yes normal gait Psych Appearance: grossly normal and well kempt Mental Status: mental status grossly normal Speech and movement: Normal speech and movement present Affect: normal affect Attitude: cooperative Thought process: Normal thought process present Results Reviewed Results Reviewed: Name: Cecilia López Age/Sex: 79/F : 1945 Unit#: [id number] Attend Dr: Radha Diaz MD Re07/17/24 Status: DEP [facility] Disch: SPEC : [id number] HEATHER: 07/17/24 STATUS: COMP REQ : [id number] RECD: 07/17/[address]: Radha Diaz MD COMP: 07/17/24 ENTERED: 07/17/[address]: ORDERED: Met Prof Fast, AST, ALT, Lipid Panel, Vitamin D 25-OH Test Result Flag Reference Sodium 136 135-145 mmol/L Potassium 4.2 3.3-5.1 mmol/L CL 101 96-108 mmol/L CO2 26 22-29 mmol/L Gap 13 12-20 BUN 18 H 9-16 mg/dL Creat 0.80 0.5-1.4 mg/dL eGFR > 60 Chronic Kidney Disease: Estimated GFR < 60 mL/min/1.73m2 Severe Kidney Disease: Estimated GFR < 15 mL/min/1.73m2 FBS 131 H 60-99 mg/dL A fasting glucose of 126 mg/dl or greater on more than one occasion is considered diagnostic of diabetes. CA 9.8 # 8.4-10.2 mg/dL AST (GOT) 28 5-31 U/L ALT (GPT) 17 0-31 U/L Triglyceride 107 <150 mg/dL Desirable Triglyceride: less than 150 mg/dL Borderline High Triglyceride 150-199 mg/dL High Triglyceride: 200-499 mg/dL Very High Triglyceride: greater than or equal to 5OO mg/dL Cholesterol 164 <200 mg/dL Desirable Cholesterol: less than 200 mg/dL Borderline High Cholesterol: 200-239 mg/dL High Cholesterol: greater than 239 mg/dL LDL Calculated 86 <100 mg/dL Desirable LDL: less than 100 mg/dL Near Optimal/Above Optimal LDL: 110-129 mg/dL Borderline High LDL: 130-159 mg/dL High LDL: 160-189 mg/dL Very High LDL: greater than or equal to 190 mg/dL HDL 57 >40 mg/dL Desirable HDL: greater than 40 mg/dL Note: This HDL assay may give artificially low results in patients with liver disease. Vitamin D 25-OH 36.3 >30 ng/mL Health Based Reference Values* < 20 ng/mL Deficient 20-30 ng/mL Insufficient > 30 ng/mL Sufficient Laboratory Tests 04/12/24 07/17/24 09:09 09:29 Estimat Average Glucose 180 160 Hemoglobin A1c % 7.9 H 7.2 H Coding Level of Care Code Est Pt Level 4 (75969) Complex EM visit Add On G2211 Diagnoses History of squamous cell carcinoma Z85.89 History of basal cell cancer Z85.828 Screening for Malignant Neoplasm of Skin Z12.83 Dyslipidemia E78.5 Primary hypertension I10 Hypertension type: primary hypertension Diabetes mellitus with microalbuminuria, without long-term current use of insulin E11.29; R80.9 Erythema intertrigo L30.4 Assessment & Plan Assessment & Plan (1) History of squamous cell carcinoma: Comment: Right lower leg done at [facility] in [place] Code(s): Z85.89 - Personal history of malignant neoplasm of other organs and systems Category: Medical Plan: Dermatology consult ordered for [facility], per patient request for routine skin cancer screening and follow-up (2) History of basal cell cancer: Comment: Right back, removed by [facility] 2024 Code(s): Z85.828 - Personal history of other malignant neoplasm of skin Category: Medical Plan: Dermatology consult ordered for [facility], per patient request for routine skin cancer screening and follow-up (3) Screening for Malignant Neoplasm of Skin: Code(s): Z12.83 - Encounter for screening for malignant neoplasm of skin Plan: Dermatology consult ordered for [facility], per patient request for routine skin cancer screening and follow-up (4) Dyslipidemia: Code(s): E78.5 - Hyperlipidemia, unspecified Category: Medical Plan: Fasting lipids are within normal limits, continued on current dose of rosuvastatin 5 mg taken 1 tablet every other day. Repeat another fasting lipid panel in 3 months (5) HTN (hypertension): Code(s): I10 - Essential (primary) hypertension Category: Medical Qualifiers: Hypertension type: primary hypertension Qualified Code(s): I10 - Essential (primary) hypertension Plan: Blood pressure within acceptable limits. Continue with losartan 100 mg once a day. Reinforced importance of following a low sodium diet, getting regular exercise, and lowering stress levels. (6) Diabetes mellitus with microalbuminuria, without long-term current use of insulin: Code(s): E11.29 - Type 2 diabetes mellitus with other diabetic kidney complication; R80.9 - Proteinuria, unspecified Category: Medical Plan: Hemoglobin A1c is lower at 7.2%. Continue with metformin 1000 mg twice a day and Januvia 100 mg daily reinforced importance of following recommended diet and start doing at least 30 minutes of moderate intensity exercise daily. Repeat another hemoglobin A1c in October 2024 (7) Erythema intertrigo: Code(s): L30.4 - Erythema intertrigo Category: Medical Plan: Advised to clean areas under breasts and keep them dry at all times. Prescription sent for nystatin powder apply to affected area once a day during the warmer weather Orders: Orders Hemoglobin A1c 10/12/24 E11.42 - Type 2 diabetes mellitus with diabetic polyneuropathy, E11.29 - Type 2 diabetes mellitus with other diabetic kidney complication, R80.9 - Proteinuria, unspecified, I10 - Essential (primary) hypertension, E78.5 - Hyperlipidemia, unspecified Aspartate Amino Transferase 10/12/24 E11.42 - Type 2 diabetes mellitus with diabetic polyneuropathy, E11.29 - Type 2 diabetes mellitus with other diabetic kidney complication, R80.9 - Proteinuria, unspecified, I10 - Essential (primary) hypertension, E78.5 - Hyperlipidemia, unspecified Alanine Aminotransferase 10/12/24 E11.42 - Type 2 diabetes mellitus with diabetic polyneuropathy, E11.29 - Type 2 diabetes mellitus with other diabetic kidney complication, R80.9 - Proteinuria, unspecified, I10 - Essential (primary) hypertension, E78.5 - Hyperlipidemia, unspecified Basic Metabolic Panel Fasting 10/12/24 E11.42 - Type 2 diabetes mellitus with diabetic polyneuropathy, E11.29 - Type 2 diabetes mellitus with other diabetic kidney complication, R80.9 - Proteinuria, unspecified, I10 - Essential (primary) hypertension, E78.5 - Hyperlipidemia, unspecified Lipid Panel 10/12/24 E11.42 - Type 2 diabetes mellitus with diabetic polyneuropathy, E11.29 - Type 2 diabetes mellitus with other diabetic kidney complication, R80.9 - Proteinuria, unspecified, I10 - Essential (primary) hypertension, E78.5 - Hyperlipidemia, unspecified Vitamin D 25-OH Total 10/12/24 E11.42 - Type 2 diabetes mellitus with diabetic polyneuropathy, E11.29 - Type 2 diabetes mellitus with other diabetic kidney complication, R80.9 - Proteinuria, unspecified, I10 - Essential (primary) hypertension, E78.5 - Hyperlipidemia, unspecified Referrals Dermatology Referral Z85.828 - Personal history of other malignant neoplasm of skin, Z85.89 - Personal history of malignant neoplasm of other organs and systems, Z12.83 - Encounter for screening for malignant neoplasm of skin Medications: New nystatin 1 appl topical DAILY PRN 60 grams 1RF intertrigo Refilled lorazepam 0.5 mg PO DAILY PRN 30 tabs 0RF anxiety losartan 100 mg PO DAILY 90 caps 4RF 90 days I10 - Essential (primary) hypertension
== END 2024-07-18 14:31 | disposition home or self-care (01) ==
LOC: HO.HMCC 13:22
PROVIDERS: PCP Internal Medicine; Visit Provider Internal Medicine
DX: E11.29 Type 2 diabetes mellitus with other diabetic kidney complication (principal); E78.5 Hyperlipidemia, unspecified; I10 Essential (primary) hypertension; Z85.89 Personal history of malignant neoplasm of other organs and systems; Z85.828 Personal history of other malignant neoplasm of skin; Z12.83 Encounter for screening for malignant neoplasm of skin; R80.9 Proteinuria, unspecified; L30.4 Erythema intertrigo

== ENCOUNTER → 2024-07-18 13:22 | Outpatient (BNVA) | payer MEDICARE, SELFPAY | PROVIDERS: PCP Internal Medicine; Visit Provider Internal Medicine | DX: E11.42 Type 2 diabetes mellitus with diabetic polyneuropathy (principal); E11.29 Type 2 diabetes mellitus with other diabetic kidney complication; R80.9 Proteinuria, unspecified; F41.1 Generalized anxiety disorder; E66.9 Obesity, unspecified; E78.5 Hyperlipidemia, unspecified; I10 Essential (primary) hypertension; L30.4 Erythema intertrigo; Z68.33 Body mass index [BMI] 33.0-33.9, adult; Z85.89 Personal history of malignant neoplasm of other organs and systems; Z85.828 Personal history of other malignant neoplasm of skin | CPT/HCPCS: 99212 ==

== ENCOUNTER 2024-10-23 08:03 | Outpatient (REF) | payer MEDICARE, SELFPAY ==
[2024-10-23 11:51] LABS: Hemoglobin A1C 300.7459 umol/L; Total Hemoglobin (HGBA1C) 4888.7758 umol/L
[2024-10-23 11:53] LABS: Alanine Aminotransferase 19 U/L (0-31); Anion Gap 15 (12-20); Aspartate Amino Transferase 30 U/L (5-31); Blood Urea Nitrogen 18 mg/dL (9-16); Calcium 9.5 mg/dL (8.4-10.2); Carbon Dioxide 24 mmol/L (22-29); Chloride 101 mmol/L (96-108); Cholesterol 164 mg/dL (<200); Estimated Glomerular Filt Rate > 60; HDL Cholesterol 52 mg/dL (>40); Potassium 4.4 mmol/L (3.3-5.1); Sodium 136 mmol/L (135-145); Triglycerides 109 mg/dL (<150)
== END 2024-10-23 08:04 | disposition home or self-care (01) ==
LOC: HO.HMGCLDS 08:03
PROVIDERS: PCP Internal Medicine; Visit Provider Internal Medicine
DX: E11.42 Type 2 diabetes mellitus with diabetic polyneuropathy (principal); E11.29 Type 2 diabetes mellitus with other diabetic kidney complication; R80.9 Proteinuria, unspecified; I10 Essential (primary) hypertension; E78.5 Hyperlipidemia, unspecified; Z13.21 Encounter for screening for nutritional disorder
CPT/HCPCS: 36415; 80048; 80061; 82306; 83036; 84450; 84460

== ENCOUNTER 2024-10-24 15:50 | Outpatient (AMB) | payer MEDICARE, SELFPAY ==
--- NOTE | 2024-10-24 15:52 | A.OFFPC_ITS ---
Vital Signs 10/24/24 15:56 Height 5 ft 3 in Weight 191 lb BMI 33.8 BP 134/70 Blood Pressure Location Lt brachial Position Sitting Respiration 15 Pulse 86 Pulse Source Pulse Oximeter Temp 98.3 F Temp Source Oral Pulse Oximetry (%) 96 Oxygen Delivery Method Room Air Intake Visit Reasons: 3 months f/up Intake Note: Pt is here today for her 3mo. f/u Allergies penicillin V Allergy (Intermediate, Verified 10/27/24 18:02) Unknown Medication List - Last Reconciled 10/27/24 by Radha Diaz MD blood sugar diagnostic (FreeStyle Lite Strips) Check Fasting blood sugar once a day as directed blood-glucose meter (FreeStyle Pyote Lite kit) check fasting lood sugar once a day [diabetes shoes with 3 pair custom inserts As directed] [diabetic shoes As directed] FreeStyle Nerissa 2 Plus Sensor (blood-glucose sensor) As directed NS FreeStyle Nerissa 2 Sensor (flash glucose sensor) check blood sugar as directed NS Januvia (sitagliptin phosphate) 100 mg PO DAILY NS lancets (CareTouch Safety Lancets) Check fasting blood sugar once a day As directed lorazepam 0.5 mg PO DAILY PRN losartan 100 mg PO DAILY 90 days magnesium oxide 500 mg PO DAILY metformin ER 1,000 mg (2 x 500 mg) PO BID nystatin 1 appl topical DAILY PRN rosuvastatin 5 mg PO Q2D 3 months Tobacco use date assessed: 10/24/24 Fall risk assessment: No Falls in past year Last assessed Fall Risk: 10/24/24 Dental Screening Dental Screen Date: 10/24/24 HPI 3 months f/up HPI Details - 79-year-old lady here for follow-up o n her diabetes mellitus, dyslipidemia, and hypertension - Reports poor dietary habits over the ummer, including ice cream, chips, and hamburgers, leading to elevated blood glucose levels. - Recent lab results show an increase in HbA1c from 7.2% in July to 7.8%, with an average blood glucose level of 177 mg/dL. - Engages in regular physical activity, including swimming and biking, which may help mitigate some dietary impacts. - Currently on metformin and Januvia for diabetes management, with an upcoming endocrinology appointment to review medication efficacy. - Hyperlipidemia noted with a slight inc rease in LDL cholesterol, though HDL cholesterol remains favorable. - Has cataracts in both eyes, monitored biannually by an matrix repairer, with no current need for surgical intervention. - History of basal cell carcinoma and sq uamous cell carcinoma, with regular dermatological follow-ups scheduled. - Preventative care includes considerati on for a tetanus vaccination, with advice to consult a pharmacy for administration. [facility] Medical History Erythema intertrigo History of basal cell cancer History of squamous cell carcinoma Type 2 diabetes mellitus with peripheral neuropathy Generalized anxiety disorder Leukopenia Diabetes mellitus with microalbuminuria, without long-term current use of insulin Asymptomatic age-related postmenopausal state Plantar fasciitis, bilateral HTN (hypertension) Dyslipidemia Surgical History History of removal of cyst (08/02/22) History of total abdominal hysterectomy and bilateral salpingo-oophorectomy Family History Father Medical history non-contributory Mother Medical history non-contributory Social History Household Members: None Housing: House Alcohol intake: current Alcohol intake frequency: a few times a month Patient Tobacco Use Status: Never used Tobacco e-Cigarette/Vaping Use: Never Used Second Hand Smoke Exposure: No service: No Current occupational status: retired Cognitive needs: No Hearing needs: No Vision needs: No Questionnaire Thrive Questionnaire Date Thrive assessed: 04/16/24 I am a: Patient What is your living situation today?: I have a steady place to live Within the past 12 months, did the food you bought not last and you didn't have the money to get more?: Never true Within the past 12 months, did you worry whether your food would run out before you got money to buy more?: Never true Do you have trouble paying for medicines?: No Do you have trouble getting transportation to medical appointments?: No Do you have trouble paying your heating and electricity bill?: No Do you have trouble taking care of your child, family member or friend?: No Do you have trouble with day-to-day activities such as bathing, preparing meals, shopping, managing finances, etc.?: No Are you currently unemployed and looking for a job?: No Are you interested in more education?: No Please select the resources that you would like help with: None Currently or been in a relationship where the following occur: No concerns reported THRIVE Score: 0 SHAHID-7 AMB Questionnaire SHAHID-7 Date SHAHID - 7 assessed: 04/16/24 Source: Developed by Drs. Blair Davis, Lila Ferris, Monico Cisneros and colleagues, with an educational hilario from [employer]. Review of Systems Const Denies body aches, Denies fatigue, Denies headache(s) and Denies weakness Eyes Denies change in vision ENT Reports Normal hearing present and Denies headache(s) Card Denies chest pain, Denies lightheadedness, Denies palpitations and Denies dyspnea Resp Denies chest congestion, Denies cough and Denies dyspnea GI Denies abdominal pain, Denies change in bowel habits and Denies heartburn Denies hematuria, Denies urinary frequency, Denies dysuria and Denies urinary urgency Musc Reports no additional complaints Neuro Reports Normal hearing present, Denies headache(s), Denies Sensory deficit (Neuro) and Denies weakness Psych Reports no additional complaints Endo Denies fatigue, Denies polydipsia, Denies polyuria and Denies palpitations Pratik/Lymph Denies easy bruising Aller/Immun Denies seasonal rhinorrhea Physical exam (Primary Care) Vital Signs: Last Vital Signs Temp 98.3 F 10/24/24 15:56 Pulse 86 10/24/24 15:56 Resp 15 10/24/24 15:56 BP 134/70 10/24/24 15:56 Pulse Ox 96 10/24/24 15:56 Oxygen Delivery Method Room Air 10/24/24 15:56 BMI result Body Mass Index 33.8 Tobacco/Smoking Status: Tobacco use Status Tobacco use date assessed 10/24/24 10/24/24 16:00 Patient Tobacco Use Status Never used Tobacco 10/24/24 15:53 e-Cigarette/Vaping Use Never Used 10/24/24 15:53 Thrive Assessment: Date of Thrive Assessment Date Thrive assessed 04/16/24 10/24/24 15:53 Currently or been in a relationship where the following occur: No concerns reported Const General: comfortable, no acute distress and alert Nutritional Appearance: obese Orientation/consciousness: patient oriented x3 HENKS Mouth: Normal oral and palatal mucosa present, oropharynx normal and moist mucous membranes Eyes General: appearance normal, both eyes and all related structures Neck Neck: Yes full ROM, Yes no lymphadenopathy and Yes supple Resp Auscultation: clear to auscultation bilaterally Cardio Rate: regular rate Rhythm: regular rhythm Heart sounds: S1 normal heart sound present and S2 normal heart sound present GI Palpation (GI): Soft to palpation, nontender, no guarding and no masses General: Yes no CVA tenderness Back/Spine/Pelvis Back: no CVA tenderness and No back tenderness Skin Other: Mild dry erythematous patch under both breasts Nails: yellow and thickened (Big toenails bilateral) Neuro General: patient oriented x3, gait normal, tone normal, moves all extremities, Normal light touch and pain sensation, no focal motor deficits, CN's II-XI intact bilaterally and normal sensation to monofilament (Bilateral) Cranial nerves: Yes Normal hearing present Sensory Exam: No Sensory deficit (Neuro) Extrem Other: plantar callus seen bilateral General: Yes full ROM, Yes no joint enlargement, Yes no pedal edema, Yes no calf tenderness and Yes normal gait Psych Appearance: grossly normal and well kempt Mental Status: mental status grossly normal Speech and movement: Normal speech and movement present Affect: normal affect Results Reviewed Results Reviewed: Name: Cecilia López Age/Sex: 79/F : 1945 Unit#: [id number] Attend Dr: Radha Diaz MD Re10/23/24 Status: DEP REF Location: [facility] Disch: SPEC : [id number] HEATHER: 10/23/24 STATUS: COMP REQ : [id number] RECD: 10/23/[address]: Radha Diaz MD COMP: 10/23/24 ENTERED: 10/23/[address]: ORDERED: Met Prof Fast, AST, ALT, Lipid Panel, Vitamin D 25-OH Test Result Flag Reference Sodium 136 135-145 mmol/L Potassium 4.4 3.3-5.1 mmol/L CL 101 96-108 mmol/L CO2 24 22-29 mmol/L Gap 15 12-20 BUN 18 H 9-16 mg/dL Creat 0.81 0.5-1.4 mg/dL eGFR > 60 Chronic Kidney Disease: Estimated GFR < 60 mL/min/ 1.73m2 Severe Kidney Disease: Estimated GFR < 15 mL/min/1.73m2 FBS 148 H 60-99 mg/dL A fasting glucose of 126 mg/dl or greater on more than one occasion is considered diagnostic of diabetes. CA 9.5 8.4-10.2 mg/dL AST (GOT) 30 5-31 U/L ALT (GPT) 19 0-31 U/L Triglyceride 109 <150 mg/dL Desirable Triglyceride: less than 150 mg/dL Borderline High Triglyceride 150-199 mg/dL High Triglyceride: 200-499 mg/dL Very High Triglyceride: greater than or equal to 5OO mg/dL Cholesterol 164 <200 mg/dL Desirable Cholesterol: less than 200 mg/dL Borderline High Cholesterol: 200-239 mg/dL High Cholesterol: greater than 239 mg/dL LDL Calculated 91 <100 mg/dL Desirable LDL: less than 100 mg/dL Near Optimal/Above Optimal LDL: 110-129 mg/dL Borderline High LDL: 130-159 mg/dL High LDL: 160-189 mg/dL Very High LDL: greater than or equal to 190 mg/dL HDL 52 >40 mg/dL Desirable HDL: greater than 40 mg/dL Note: This HDL assay may give artificially low results in patients with liver disease. Vitamin D 25-OH 55.3 >30 ng/mL Health Based Reference Values* < 20 ng/mL Deficient 20-30 ng/mL Insufficient > 30 ng/mL Sufficient Laboratory Tests 10/23/24 08:06 Estimat Average Glucose 177 Hemoglobin A1c % 7.8 H Coding Level of Care Code Est Pt Level 4 (83185) Complex EM visit Add On G2211 Diagnoses Screening for Malignant Neoplasm of Skin Z12.83 Primary hypertension I10 Hypertension type: primary hypertension Dyslipidemia E78.5 Diabetes mellitus with microalbuminuria, without long-term current use of insuli n E11.29; R80.9 History of basal cell cancer Z85.828 History of squamous cell carcinoma Z85.89 Assessment & Plan Assessment & Plan (1) Screening for Malignant Neoplasm of Skin: Code(s): Z12.83 - Encounter for screening for malignant neoplasm of skin (2) HTN (hypertension): Code(s): I10 - Essential (primary) hypertension Category: Medical Qualifiers: Hypertension type: primary hypertension Qualified Code(s): I10 - Essential (primary) hypertension (3) Dyslipidemia: Code(s): E78.5 - Hyperlipidemia, unspecified Category: Medical (4) Diabetes mellitus with microalbuminuria, without long-term current use of insulin: Code(s): E11.29 - Type 2 diabetes mellitus with other diabetic kidney complication; R80.9 - Proteinuria, unspecified Category: Medical (5) History of basal cell cancer: Comment: Right back, removed by [facility] 2024 Code(s): Z85.828 - Personal history of other malignant neoplasm of skin Category: Medical (6) History of squamous cell carcinoma: Comment: Right lower leg done at [facility] in [place] Code(s): Z85.89 - Personal history of malignant neoplasm of other organs and systems Category: Medical Plan Continued on current medication. Continued regular physical activity, such as swimming and biking, to aid in managing Type 2 Diabetes Mellitus and hyperlipidemia. Dietary changes are necessary to improve glycemic control, focusing on reducing high-sugar and high-fat food consumption. An endocrinology consultation is scheduled to assess diabetes medication efficacy and explore potential adjustments, including SGLT2 inhibitors or GLP-1 receptor agonists. Regular ophthalmology visits for cataract monitoring and dermatological follow- ups for skin cancer are advised. The patient is advised to consider receiving a tetanus vaccination at a pharmacy. Patient was informed and verbally consented to the use of an ambient scribe for clinic note documentation during this visit. Orders: Referrals Dermatology Referral Z12.83 - Encounter for screening for malignant neoplasm of skin, Z85.828 - Personal history of other malignant neoplasm of skin, Z85.89 - Personal history of malignant neoplasm of other organs and systems
--- OUTSIDE RECORDS SUMMARY | 2024-10-24 15:54 | XMS_ITS | Patient Health Record ---
[facility] Address [address] [address] Care Team Providers Care Public Health Aide Name Role Phone Emily IBARRA, Radha Leonard Primary Care Provider Un available Jerry Swenson Unavailable [phone] Allergies Allergen (clinical drug ingredient) Drug/Non Drug Allergy documented on EMR Reaction Allergy Type Onset Date Status Penicillin Unknown Drug Allergy Active Reason For Referral No Information Medications Medication SIG (Take, Route, Fr equency, Duration) Notes Start Date End Date Status Lopressor Active Nightsplint . . . AFO - L1930; Duration: . Active metFORMIN HCl ER 500 MG Oral; Duration: 90 Active Immunizations Vaccine Route Administration Date Status Comme nts Influenza Unknown 11/29/2018 Administered Influenza Unknown 12/09/2019 Administered Social History Tobacco Use: Social History Observation Description Date Details (start date - stop date) Never Smoker NA - NA Tobacco Use/Smoking Question Answer Notes Are you a: nonsmoker Additional Findings: Tobacco Non-User Current no n-smoker Alcohol Screen Question Answer Notes Did you have a drink contain ing alcohol in the past year? Yes How often did you have a dri nk containing alcohol in the past year? 2 to 3 times a week (3 points) Points 3 Interpretation Positive Tobacco use other than smoking: Question Answer Notes Are you an other tobacco user? No Problems Problem Type SNOMED Code ICD Code Onset Dates Problem Status W/U Status Risk Notes Problem Type 2 diabetes mellitus with diabetic polyneuropathy (E11.42) Active confirmed Plan Of Treatment Pending Test Test Name Order Date ,[id number] TENDON SHEATH/LIGAMENT 0 11/26/2019,[id number] TENDON SHEATH/LIGAMENT 1 50,[id number] TENDON SHEATH/LIGAMENT 1 04/06/2019 Insurance Providers Payer Name Payer Address Payer Phone Subscriber Number Group Number Insured Name Patient Relationship to Insured Coverage Start Date Coverage End Date [employer] [address] [place] [address] [id number] Cecilia López Self - patient is the insured Medical (General) History Medical History History ICD Code Diabetic High blood pressure Measles Mumps Chicken pox Surgical History Surgery Date(Month/Year) hysterectomy
[2024-10-24 15:56] VITALS: BP 134/70; PULSE 86; RESP 15; TEMP 36.8; O2SAT 96; BMI 33.8
== END 2024-10-24 16:33 | disposition home or self-care (01) ==
LOC: HO.HMCC 15:51
PROVIDERS: PCP Internal Medicine; Visit Provider Internal Medicine
DX: Z12.83 Encounter for screening for malignant neoplasm of skin (principal); I10 Essential (primary) hypertension; E78.5 Hyperlipidemia, unspecified; E11.29 Type 2 diabetes mellitus with other diabetic kidney complication; R80.9 Proteinuria, unspecified; Z85.828 Personal history of other malignant neoplasm of skin; Z85.89 Personal history of malignant neoplasm of other organs and systems

== ENCOUNTER → 2024-10-24 15:50 | Outpatient (BNVA) | payer MEDICARE, SELFPAY | PROVIDERS: PCP Internal Medicine; Visit Provider Internal Medicine | DX: I10 Essential (primary) hypertension (principal); E11.9 Type 2 diabetes mellitus without complications; E78.5 Hyperlipidemia, unspecified; H26.9 Unspecified cataract; E11.29 Type 2 diabetes mellitus with other diabetic kidney complication; R80.9 Proteinuria, unspecified; Z85.828 Personal history of other malignant neoplasm of skin; Z85.89 Personal history of malignant neoplasm of other organs and systems; Z79.899 Other long term (current) drug therapy | CPT/HCPCS: 99212 ==

== ENCOUNTER 2024-12-06 12:57 | Outpatient (AMB) | payer MEDICARE, SELFPAY ==
[2024-12-06 13:02] VITALS: BP 128/64; PULSE 75; O2SAT 96; BMI 35.0
--- NOTE | 2024-12-06 13:02 | A.OFFVIS_ITS ---
Vital Signs 12/06/24 13:02 Height 5 ft 3 in Weight 197 lb 12.074 oz BMI 35.0 BP 128/64 Blood Pressure Location Lt brachial Position Sitting Pulse 75 Pulse Source Pulse Oximeter Pulse Oximetry (%) 96 Oxygen Delivery Method Room Air Intake Visit Reasons: Type 2 diabetes mellitus with other diabetic kidne Intake Note: New patient internally referred by PCP for T2DM. Last Diabetic Eye exam:?September, [place] [facility] Last Podiatry Visit:?4 years ago, [facility] in [place]. Dr. Roy Random Glucose:130 mg/dl Hgb A1C: 7.8% 10/23/2024 Orthopedically Impaired Teacher Required: No Accompanied by: Self / Same As Patient Allergies penicillin V Allergy (Intermediate, Verified 12/06/24 13:04) Unknown HPI Comments Details: This is an 79-year-old female with a past medical history of type 2 diabetes, skin cancer, anxiety, hypertension and dyslipidemia presenting for an initial consult for diabetic management. She was diagnosed with type 2 diabetes about 20 years ago. She has a family history of type 2 diabetes in her brother, grandparents, aunts and uncles. Reviewed Nerissa 2 data for the past 14 days CGM active 10% Average glucose 164 Very high 0% High 18% Target range 82% Low 0% Hemoglobin a1c 7.8% 10/23/2024. Current medication regimen: Januvia 100 mg and metformin extended release 1000 mg twice daily Compliance issues: She is compliant with her medications, but she does not follow a diabetic diet. Patient says she ?loves to eat. ? She admits to larger portion sizes. For breakfast she may have waffles with syrup, toast with eggs or a she has breakfast sandwich on an Somali muffin or lifts meal. She has coffee with milk. For breakfast she will have sandwiches. During this summer she may go for a couple of weeks having a vodka seltzer in the afternoon, but this is not a consistent thing. For dinner she has protein, starches and a vegetable and a glass of wine. She snacks on crackers and, and she will have desserts. Last night she had pumpkin cheese cake. Denies hypoglycemia. Denies symptoms of hyperglycemia. Eye exam: Up-to-date Diabetic complications: Nephropathy (microalbuminuria) and diabetic retinopathy, neuropathy in her feet Hypertension: treated with losartan 100 mg Hyperlipidemia: treated with rosuvastatin 5 mg ROS: Constitutional: No unexplained weight loss, fever, chills, fatigue or night sweats. Gastrointestinal: No anorexia, nausea, vomiting or diarrhea. No abdominal pain or blood in stool. Genitourinary: No dysuria, hematuria, urinary frequency. Denies frequent urinary tract infections or yeast infections. Neurologic: No dizziness or syncope. Endorses tingling in her feet. Endocrine: No cold or heat intolerance. No polyuria or polydipsia. Physical exam: Constitutional: Alert, in no distress. Neck: Supple, Full range of motion. No lymphadenopathy. No palpable thyroid masses. Respiratory: Clear to auscultation. Cardiovascular: S1 S2 regular. No murmurs. Extremities: Warm and well perfused. No clubbing, cyanosis or edema. No foot wounds. 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 peripheral neuropathy Generalized anxiety disorder Leukopenia Diabetes mellitus with microalbuminuria, without long-term current use of insulin Asymptomatic age-related postmenopausal state Plantar fasciitis, bilateral HTN (hypertension) Dyslipidemia Surgical History History of removal of cyst (08/02/22) History of total abdominal hysterectomy and bilateral salpingo-oophorectomy Family History Father Medical history non-contributory Mother Medical history non-contributory Social History Household Members: None Housing: House Alcohol intake: current Alcohol intake frequency: a few times a month Patient Tobacco Use Status: Never used Tobacco e-Cigarette/Vaping Use: Never Used Second Hand Smoke Exposure: No service: No Current occupational status: retired Cognitive needs: No Hearing needs: No Vision needs: No Physical Exam Vital Signs: Last Vital Signs Pulse 75 12/06/24 13:02 BP 128/64 12/06/24 13:02 Pulse Ox 96 12/06/24 13:02 Oxygen Delivery Method Room Air 12/06/24 13:02 BMI result Body Mass Index 35.0 Results Reviewed Results Reviewed: Laboratory Last Values Glucose (Clinic) 130 mg/dL (60-115) H 12/06/24 13:14 Laboratory Tests 04/12/24 10/23/24 09:09 08:06 Creatinine 0.81 Estimated GFR > 60 AST 30 ALT 19 Triglycerides 109 Cholesterol 164 LDL Cholesterol, Calc 91 HDL Cholesterol 52 Urine Creatinine 72.87 Urine Microalbumin 28.0 Microalb/Creat Ratio 38.4 H Assessment & Plan Assessment & Plan (1) Type 2 diabetes mellitus with peripheral neuropathy: Code(s): E11.42 - Type 2 diabetes mellitus with diabetic polyneuropathy Category: Medical (2) Obesity (BMI 30.0-34.9): Code(s): E66.9 - Obesity, unspecified Category: Medical (3) HTN (hypertension): Code(s): I10 - Essential (primary) hypertension Category: Medical Qualifiers: Hypertension type: primary hypertension Qualified Code(s): I10 - Essential (primary) hypertension Plan In summary this is an 79-year-old female with suboptimally controlled type 2 diabetes. I recommended advancing her CGM to the Nerissa 3+. Patient says she has many home, and she has to pay a deductible on a lot of her pharmacy products so she wants to hold off on this for now. She will call the office when she has to sensors left for me to submit the new prescription. I recommended scanning her CGM 3-4 times daily. We discussed stopping Januvia and trying an SGLT2 or GLP 1. She wants to work on weight loss so she would like to try a GLP 1. She still has a about 2 months left on her current prescription of Januvia so she did not want to make the switch today citing the cost of medications. She will contact me when she has 1 month left on Januvia to submit a prescription for Mounjaro, but she does have to speak with her niece. Her niece had thyroid cancer, and she needs to make sure it was not medullary thyroid cancer. She denies other contraindications to GLP 1.. We discussed potential side effects. Discussed pathophysiology of Type II Diabetes Mellitus with the patient in detail.? I explained the rat exterminator risks and complications associated with uncontrolled diabetes including nephropathy, neuropathy, peripheral vascular disease, retinopathy, increased risk of heart disease and stroke.? Discussed lifestyle modification with the patient. Recommended 30 minutes of moderately vigorous exercise 5 days per week to promote weight loss. She declined referral to the [place] and insurance claims adjuster. We reviewed treatment of hypoglycemia. Glucose tablets prescribed. Continue current medications for HTN and HLD. Follow up in 3 months. Medications: New glucose (Dex4 Glucose Quick Dissolve) until symptoms of low blood sugar are controlled 16 grams (4 x 4 gram) PO Q15M PRN 30 tabs 3RF hypoglycemia Refilled blood sugar diagnostic (FreeStyle Lite Strips) Check Fasting blood sugar once a day as directed 100 ea 5RF E11.29 - Type 2 diabetes mellitus with other diabetic kidney complication, E11.65 - Type 2 diabetes mellitus with hyperglycemia, R80.9 - Proteinuria, unspecified Patient Instructions: If you experience low blood sugar, treat this by eating a chewable fruit candy like skittles or jelly beans (about 8 pieces), 4 ounces (1/2 cup) of fruit juice (not diet), 1 tablespoon of honey or 4 glucose tablets. If your blood sugar is under 50, take double the amount of one of the above. Recheck your blood sugar in 15 minutes. When you have 2 sensors left at home, call the office, and I will switch to the nerissa 3 plus continuous glucose meter. When you have 1 month left of Januvia, please call the office, and I will submit the prescription for Mounjaro 2.5 mg weekly if there is no family of medullary thyroid cancer. The plan would be to start this when you stop Januvia. Continue Metformin. [email or web address] Coding Level of Care Code New Pt Level 5 (35326) Complex EM visit Add On G2211 Diagnoses Type 2 diabetes mellitus with peripheral neuropathy E11.42 Obesity (BMI 30.0-34.9) E66.9 Primary hypertension I10 Hypertension type: primary hypertension Time Spent (min) 65 Comment chart review, direct care, completing documentation
[2024-12-06 13:19] LABS: Glucose, Whole Blood 130 mg/dL (60-115)
--- OUTSIDE RECORDS SUMMARY | 2024-12-06 13:20 | XMS_ITS | Patient Health Record ---
Author Organization [facility] Address [address] [place] [address] Care Team Providers Care Air Intercept Controller Supervisor Name Role Phone Emily IBARRA, Radha Primary Care Provider Johann Tellez Jr Unavailable Reason For Referral No Information Plan Of Treatment No Information Insurance Providers Payer Name Payer Address Payer Phone Subscriber Number Group Number Insured Name Patient Relationship to Insured Coverage Start Date Coverage End Date [facility] [address] [place] [phone] [id number] TOSHIA GATES Self - patient is the insured
--- OUTSIDE RECORDS SUMMARY | 2024-12-06 13:21 | XMS_ITS | Patient Health Record ---
[facility] Address [address] [address] Care Team Providers Care Crosscutter Rolled Glass Name Role Phone Emily IBARRA, Radha Leonard Primary Care Provider Un available Jerry Swenson Unavailable [phone] Allergies Allergen (clinical drug ingredient) Drug/Non Drug [...] Problem Status W/U Status Risk Notes Problem Polyneuropathy due to type 2 diabetes mellitus (801977034) Type 2 diabetes mellitus with diabetic polyneuropathy (E11.42) Active confirmed Plan Of Treatment Pending Test Test Name Order Date [id number] TENDON SHEATH/LIGAMENT 0 11/26/2019,[id number] TENDON SHEATH/LIGAMENT 1 ,[id number] TENDON SHEATH/LIGAMENT 1 04/06/2019 Insurance Providers Payer Name Payer Address Payer Phone Subscriber Number Group Number Insured Name Patient Relationship to Insured Coverage Start Date Coverage End Date [employer] [address] [place] [address] [id number] Cecilia López Self - patient is the insured Medical (General) History Medical History History ICD Code Diabetic High blood pressure Measles Mumps Chicken pox Surgical History Surgery Date(Month/Year) hysterectomy
== END 2024-12-06 14:00 | disposition home or self-care (01) ==
LOC: HO.ENCR 12:57
PROVIDERS: PCP Internal Medicine; Visit Provider Physician Assistant Medical
DX: E11.42 Type 2 diabetes mellitus with diabetic polyneuropathy (principal); E66.9 Obesity, unspecified; I10 Essential (primary) hypertension

== ENCOUNTER → 2024-12-06 12:57 | Outpatient (BNVA) | payer MEDICARE, SELFPAY | PROVIDERS: PCP Internal Medicine; Visit Provider Physician Assistant Medical | DX: E11.42 Type 2 diabetes mellitus with diabetic polyneuropathy (principal); E66.9 Obesity, unspecified; I10 Essential (primary) hypertension | CPT/HCPCS: 82947; 99202 ==

== ENCOUNTER 2025-01-13 06:46 | Outpatient (REF) | payer MEDICARE, SELFPAY ==
--- OUTSIDE RECORDS SUMMARY | 2025-01-13 06:49 | XMS_ITS | Patient Health Record ---
[facility] Address [address] [place] [address] Care Team Providers Care Underwriter Solicitation Director Name Role Phone Emily IBARRA, Radha Leonard Primary Care Provider Un available Hermelindo Swensonik Unavailable [phone] Allergies Allergen (clinical drug ingredient) Drug/Non Drug [...] Polyneuropathy due to type 2 diabetes mellitus ([id number]) Type 2 diabetes mellitus with diabetic polyneuropathy (E11.42) Active confirmed Plan Of Treatment Pending Test Test Name Order Date [id number] TENDON SHEATH/LIGAMENT 0 11/26/2019,[id number] TENDON SHEATH/LIGAMENT 1 ,[id number] TENDON SHEATH/LIGAMENT 1 04/06/2019 Insurance Providers Payer Name Payer Address Payer Phone Subscriber Number Group Number Insured Name Patient Relationship to Insured Coverage Start Date Coverage End Date [employer] [address] [place] [address] [id number] Cecilia López Self - patient is the insured Medical (General) History Medical History History ICD Code Diabetic High blood pressure Measles Mumps Chicken pox Surgical History Surgery Date(Month/Year) hysterectomy
--- OUTSIDE RECORDS SUMMARY | 2025-01-13 06:49 | XMS_ITS | Patient Health Record ---
Author Organization [facility] Address [address] [place] [address] Care Team Providers Care Sand Cutter Operator Name Role Phone Emily IBARRA, Radha Primary Care Provider Johann Tellez Jr Unavailable [phone] Reason For Referral No Information Plan Of Treatment No Information Insurance Providers Payer Name Payer Address Payer Phone Subscriber Number Group Number Insured Name Patient Relationship to Insured Coverage Start Date Coverage End Date [facility] [address] [place] [address] [id number] TOSHIA GATES Self - patient is the insured
[2025-01-13 11:13] LABS: Alanine Aminotransferase 21 U/L (0-31); Anion Gap 14 (12-20); Aspartate Amino Transferase 24 U/L (5-31); Blood Urea Nitrogen 28 mg/dL (9-16); Calcium 9.4 mg/dL (8.4-10.2); Carbon Dioxide 22 mmol/L (22-29); Chloride 102 mmol/L (96-108); Cholesterol 164 mg/dL (<200); Estimated Glomerular Filt Rate > 60; HDL Cholesterol 50 mg/dL (>40); Iron 66 mcg/dL (30-160); Percent Iron Saturation 21 % (15-50); Potassium 4.6 mmol/L (3.3-5.1); Sodium 133 mmol/L (135-145); Total Iron Binding Capacity 318 mcg/dL (228-428); Triglycerides 115 mg/dL (<150); Unsaturated Iron Binding 252 ug/dL
== END 2025-01-13 06:47 | disposition home or self-care (01) ==
LOC: HO.HMGCLDS 06:46
PROVIDERS: PCP Internal Medicine; Visit Provider Internal Medicine
DX: Z00.01 Encounter for general adult medical examination with abnormal findings (principal); E11.42 Type 2 diabetes mellitus with diabetic polyneuropathy; E66.9 Obesity, unspecified; D50.9 Iron deficiency anemia, unspecified; D72.819 Decreased white blood cell count, unspecified; E11.29 Type 2 diabetes mellitus with other diabetic kidney complication; R80.9 Proteinuria, unspecified; I10 Essential (primary) hypertension; E78.5 Hyperlipidemia, unspecified; F51.04 Psychophysiologic insomnia; Z68.35 Body mass index [BMI] 35.0-35.9, adult; Z79.84 Long term (current) use of oral hypoglycemic drugs; Z79.899 Other long term (current) drug therapy
CPT/HCPCS: 36415; 80048; 80061; 83036; 83540; 84450; 84460; 96127; 99397

== ENCOUNTER 2025-01-13 16:00 | Outpatient (AMB) | payer MEDICARE, SELFPAY ==
--- NOTE | 2025-01-13 16:03 | A.OFFPC_ITS ---
Vital Signs 01/13/25 16:06 Height 5 ft 3 in Weight 199 lb BMI 35.2 BP 156/60 H Blood Pressure Location Rt brachial Position Sitting Respiration 16 Pulse 85 Pulse Source Pulse Oximeter Temp 97.8 F Temp Source Oral Pulse Oximetry (%) 96 Oxygen Delivery Method Room Air Intake Visit Reasons: Annual PE- see comments Intake Note: Pt is here today for her PE Analyst Geochemical Prospecting Required: No Allergies penicillin V Allergy (Intermediate, Verified 01/13/25 16:18) Unknown Medication List - Last Reconciled 01/13/25 by Radha Diaz MD blood sugar diagnostic (FreeStyle Lite Strips) Check Fasting blood sugar once a day as directed blood-glucose meter (FreeStyle Exton Lite kit) check fasting lood sugar once a day [diabetes shoes with 3 pair custom inserts As directed] [diabetic shoes As directed] FreeStyle Nerissa 2 Plus Sensor (blood-glucose sensor) As directed NS FreeStyle Nerissa 2 Sensor (flash glucose sensor) check blood sugar as directed NS glucose (Dex4 Glucose Quick Dissolve) 16 grams (4 x 4 gram) PO Q15M PRN Januvia (sitagliptin phosphate) 100 mg PO DAILY NS lancets (CareTouch Safety Lancets) Check fasting blood sugar once a day As directed lorazepam 0.5 mg PO DAILY PRN losartan 100 mg PO DAILY 90 days magnesium oxide 500 mg PO DAILY metformin ER 1,000 mg (2 x 500 mg) PO BID nystatin 1 appl topical DAILY PRN rosuvastatin 5 mg PO Q2D 3 months Tobacco use date assessed: 01/13/25 Fall risk assessment: No Falls in past year Last assessed Fall Risk: 01/13/25 Dental Screening Dental Screen Date: 01/13/25 Did you have a dental visit in the last 12 months?: Yes Did you have a dental problem in the last 6 months where you did not have access to dental care?: No Was dental information given to patient?: Patient has dentist HPI Annual PE- see comments HPI Details 79-year-old lady with past medical histo ry significant for diabetes mellitus, dyslipidemia, hypertension, history of basal cell and squamous cell CA, followed by dermatology, generalized anxiety disorder, microcytic hypochromic anemia, here today for her physical exam Recent fasting labs showed poorly controlled diabetes mellitus with hemoglobin A1c at 8.5%, with microalbuminuria present. Currently taking metformin ER 1000 mg 1 tablet twice a day and Januvia 100 mg daily. She attributes the poor glycemic control to dietary indiscretions during Halloween, parties, and travel. She has been having issues with her Dexcom device falling off her arm. 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 The patient expresses concern about the high cost of Mounjaro. She reports having diabetic neuropathy in her feet but remains active by walking and swimming two to three times a week. Has dyslipidemia currently stable on rosuvastatin 5 mg taken 1 every other day. Currently taking losartan 100 mg once a day for control of hypertension. Blood pressure elevated on today's visit. Denies any chest pain, headache, shortness of breath or lightheadedness. The patient also reports chronic insomnia, waking up at 4 a.m. daily and sometimes being awake most of the night. She takes daytime naps, particularly after swimming, and has tried pwhz-nmm-doujuaz sleep aids like Simply Sleep without relief. She has a history of anxiety for which she has medication but rarely takes it. Regarding preventative care, her last mammogram was in 2021 and was normal. She recently had a negative Cologuard test in December and is not due for another until 2027. She deferred a bone density scan during this visit. She is up-to-date on her flu and COVID vaccines, received a pneumonia vaccine in December, and declines the RSV and shingles vaccines. [facility] Medical History Erythema intertrigo History of basal cell cancer History of squamous cell carcinoma Type 2 diabetes mellitus with peripheral neuropathy Generalized anxiety disorder Leukopenia Diabetes mellitus with microalbuminuria, without long-term current use of insulin Asymptomatic age-related postmenopausal state Plantar fasciitis, bilateral HTN (hypertension) Dyslipidemia Surgical History History of removal of cyst (08/02/22) History of total abdominal hysterectomy and bilateral salpingo-oophorectomy Family History Father Medical history non-contributory Mother Medical history non-contributory Social History Household Members: None Housing: House Alcohol intake: current Alcohol intake frequency: a few times a month Patient Tobacco Use Status: Never used Tobacco e-Cigarette/Vaping Use: Never Used Second Hand Smoke Exposure: No service: No Current occupational status: retired Cognitive needs: No Hearing needs: No Vision needs: No Questionnaire PHQ-9 Over the last 2 weeks, how often have you been bothered by any of the following problems? 1. Little interest or pleasure in doing things: not at all 2. Feeling down, depressed, or hopeless: not at all 3. Trouble falling or staying asleep, or sleeping too much: not at all 4. Feeling tired or having little energy: not at all 5. Poor appetite or overeating: not at all 6. Feeling bad about yourself - or that you are a failure or have let yourself or your family down: not at all 7. Trouble concentrating on things, such as reading the newspaper or watching television: not at all 8. Moving or speaking so slowly that other people could have noticed. Or the opposite - being so fidgety or restless that you have been moving around a lot more than usual: not at all 9. Thoughts that you would be better off or of hurting yourself in some way: not at all Total score: 0 Depression Screening Interpretation: Negative Depression Screening Done: Yes Source: Developed by Drs. Blair Davis, Lila Ferris, Monico Cisneros and colleagues, with an educational hilario from [employer]. Thrive Questionnaire Date Thrive assessed: 04/16/24 I am a: Patient What is your living situation today?: I have a steady place to live Within the past 12 months, did the food you bought not last and you didn't have the money to get more?: Never true Within the past 12 months, did you worry whether your food would run out before you got money to buy more?: Never true Do you have trouble paying for medicines?: No Do you have trouble getting transportation to medical appointments?: No Do you have trouble paying your heating and electricity bill?: No Do you have trouble taking care of your child, family member or friend?: No Do you have trouble with day-to-day activities such as bathing, preparing meals, shopping, managing finances, etc.?: No Are you currently unemployed and looking for a job?: No Are you interested in more education?: No Please select the resources that you would like help with: None Currently or been in a relationship where the following occur: No concerns reported THRIVE Score: 0 AUDIT C Alcohol Use Questionnaire (AUDIT-C) 1. How often do you have a drink containing alcohol?: 2-4 times a month 2. How many drinks containing alcohol do you have on a typical day when you are drinking?: 1 or 2 3. How often do you have six or more drinks on one occasion?: Never Total Score: 2 SHAHID-7 AMB Questionnaire SHAHID-7 Date SHAHID - 7 assessed: 01/13/25 Feeling nervous, anxious, or on edge: 0 = Not at all Not being able to stop or control worryin = Not at all Worrying too much about different things: 0 = Not at all Trouble relaxin = Not at all Being so restless that it is hard to sit still: 0 = Not at all Becoming easily annoyed or irritable: 0 = Not at all Feeling afraid as if something awful might happen: 0 = Not at all Total SHAHID-7 score (0-4 normal; 5-9 mild; 10-14 moderate; 15-21 severe): 0 Source: Developed by Drs. Blair Davis, Lila Ferris, Monico Cisneros and colleagues, with an educational hilario from [employer]. SHAHID-7 Assessment Billing SHAHID-7 Assessment Tool: SHAHID-7 Assessment 84558 Review of Systems Const Denies body aches, Denies fatigue, Denies headache(s) and Denies weakness Eyes Denies change in vision ENT Reports Normal hearing present and Denies headache(s) Card Denies chest pain, Denies lightheadedness, Denies palpitations and Denies dyspnea Resp Denies chest congestion, Denies cough and Denies dyspnea GI Denies abdominal pain, Denies change in bowel habits and Denies heartburn Denies hematuria, Denies urinary frequency, Denies dysuria and Denies urinary urgency Musc Reports no additional complaints Skin/Breast Denies breast pain, Denies breast mass and Denies rash Neuro Reports Normal hearing present, Denies headache(s), Denies Sensory deficit (Neuro) and Denies weakness Psych Reports no additional complaints Endo Denies fatigue, Denies polydipsia, Denies polyuria and Denies palpitations Pratik/Lymph Denies easy bruising Aller/Immun Denies seasonal rhinorrhea Physical exam (Primary Care) Vital Signs: Last Vital Signs Temp 97.8 F 01/13/25 16:06 Pulse 85 01/13/25 16:06 Resp 16 01/13/25 16:06 BP 156/60 H 01/13/25 16:06 Pulse Ox 96 01/13/25 16:06 Oxygen Delivery Method Room Air 01/13/25 16:06 BMI result Body Mass Index 35.2 Tobacco/Smoking Status: Tobacco use Status Tobacco use date assessed 01/13/25 01/13/25 16:11 Patient Tobacco Use Status Never used Tobacco 01/13/25 16:03 e-Cigarette/Vaping Use Never Used 01/13/25 16:03 PHQ-9: PHQ-9 Score PHQ-9: Total score 0 01/13/25 16:46 Depression Screening Interpretation: Negative Thrive Assessment: Date of Thrive Assessment Date Thrive assessed 04/16/24 01/13/25 16:03 Currently or been in a relationship where the following occur: No concerns reported Const General: no acute distress and alert Nutritional Appearance: obese Orientation/consciousness: patient oriented x3 HENMT Mouth: Normal oral and palatal mucosa present, oropharynx normal and moist mucous membranes Eyes General: appearance normal, both eyes and all related structures Neck Neck: Yes full ROM, Yes no lymphadenopathy and Yes supple Resp Auscultation: clear to auscultation bilaterally Cardio Rate: regular rate Rhythm: regular rhythm Heart sounds: S1 normal heart sound present and S2 normal heart sound present GI Palpation (GI): Soft to palpation, nontender, no guarding and no masses General: Yes no CVA tenderness Back/Spine/Pelvis Back: no CVA tenderness and No back tenderness Skin Nails: yellow and thickened (Big toenails bilateral) Neuro General: patient oriented x3, gait normal, tone normal, moves all extremities, Normal light touch and pain sensation, no focal motor deficits, CN's II-XI intact bilaterally and normal sensation to monofilament (Bilateral) Cranial nerves: Yes Normal hearing present Sensory Exam: No Sensory deficit (Neuro) Extrem Other: plantar callus seen bilateral General: Yes full ROM, Yes no joint enlargement, Yes no pedal edema, Yes no calf tenderness and Yes normal gait Psych Appearance: grossly normal and well kempt Mental Status: mental status grossly normal Speech and movement: Normal speech and movement present Affect: normal affect Results Reviewed Results Reviewed: Name: Cecilia López Age/Sex: 78/F : 1945 Unit#: [id number] Attend Dr: Radha Diaz MD Re12/19/23 Status: DEP REF Location: [facility] Disch: SPEC : [id number] HEATHER: 12/19/23 STATUS: COMP REQ : [id number] RECD: 12/19/[address]: Radha Diaz MD COMP: 12/19/23 ENTERED: 12/19/[address] [facility] [address]: ORDERED: CBC Auto Diff, SLIDE REVIEW Test Result Flag Reference WBC 4.9 4.8-10.8 X10*3/uL RBC 3.58 L 4.20-5.50 X10*6/uL HGB 11.0 L 12.0-16.0 g/dl HCT 33.1 L 37.0-47.0 % MCV 92.5 80.0-98.0 fL MCH 30.7 27.0-33.0 pg MCHC 33.2 31.0-35.0 g/dl RDW 12.7 11.0-16.0 % PLT 178 160-400 X10*3/uL MPV 10.5 9.4-12.3 fL Neut Pct Auto 48.5 45-73 % ImGran Pct Auto 1.6 H 0.0-0.4 % Lymp Pct Auto 21.7 20-40 % [place] Pct Auto 27.6 H 2-11 % Eos Pct Auto 0.2 0-4 % Baso Pct Auto 0.4 0-2 % NRBC Pct Auto 0.0 0.0-0.2 /100WBC ANC Neut Abs # 2.4 2.0-8.3 x10*3/uL ImGran Abs Auto 0.08 H 0.00-0.03 X10*3/uL Lymph Abs Auto 1.1 L 1.2-4.9 X10*3/uL [place] Abs Auto 1.4 H 0.1-1.2 X10*3/uL Eos Abs Auto 0.0 0.0-0.4 X10*3/uL Baso Abs Auto 0.0 0.0-0.2 X10*3/uL NRBC Abs Auto 0.000 0.0-0.012 X10*3/uL SLIDE REVIEW VERIFIED tika: Cecilia López Age/Sex: 79/F : 1945 Unit#: [id number] Attend Dr: Radha Diaz MD Re01/13/25 Status: REG [facility] Disch: SPEC : [id number] HEATHER: 01/13/25 STATUS: COMP REQ : [id number] RECD: 01/13/[address]: Radha Diaz MD COMP: 01/13/25 ENTERED: 01/13/[address] [facility] [address]: ORDERED: Met Prof Fast, IRON PROF, AST, ALT, Lipid Panel Test Result Flag Reference Sodium 133 L 135-145 mmol/L Potassium 4.6 3.3-5.1 mmol/L CL 102 96-108 mmol/L CO2 22 22-29 mmol/L Gap 14 12-20 BUN 28 H 9-16 mg/dL Creat 0.88 0.5-1.4 mg/dL eGFR > 60 Chronic Kidney Disease: Estimated GFR < 60 mL/min/1.73m2 Severe Kidney Disease: Estimated GFR < 15 mL/min/1.73m2 FBS 166 H 60-99 mg/dL A fasting glucose of 126 mg/dl or greater on more than one occasion is considered diagnostic of diabetes. CA 9.4 8.4-10.2 mg/dL Iron 66 30-160 mcg/dL TIBC 318 228-428 mcg/dL Saturation 21 15-50 % UIBC 252 ug/dL AST (GOT) 24 5-31 U/L ALT (GPT) 21 0-31 U/L Triglyceride 115 <150 mg/dL Desirable Triglyceride: less than 150 mg/dL Borderline High Triglyceride 150-199 mg/dL High Triglyceride: 200-499 mg/dL Very High Triglyceride: greater than or equal to 5OO mg/dL Cholesterol 164 <200 mg/dL Desirable Cholesterol: less than 200 mg/dL Borderline High Cholesterol: 200-239 mg/dL High Cholesterol: greater than 239 mg/dL LDL Calculated 91 <100 mg/dL Desirable LDL: less than 100 mg/dL Near Optimal/Above Optimal LDL: 110-129 mg/dL Borderline High LDL: 130-159 mg/dL High LDL: 160-189 mg/dL Very High LDL: greater than or equal to 190 mg/dL HDL 50 >40 mg/dL Desirable HDL: greater than 40 mg/dL Note: This HDL assay may give artificially low results in patients with liver disease. Laboratory Tests 04/12/24 01/13/25 09:09 07:02 Estimat Average Glucose 197 Hemoglobin A1c % 8.5 H Urine Creatinine 72.87 Urine Microalbumin 28.0 Microalb/Creat Ratio 38.4 H Coding Level of Care Code Est Pt Prev Care >65y(50107) Diagnoses Type 2 diabetes mellitus with microalbuminuria, without long-term current use of insulin E11.29; R80.9 Diabetes mellitus type: type 2 Primary hypertension I10 Hypertension type: primary hypertension Insomnia G47.00 Annual visit for general adult medical examination with abnormal findings Z00.01 Dyslipidemia E78.5 Additional Codes SHAHID-7 Assessment Billing - SHAHID-7 Assessment Tool: SHAHID-7 Assessment 91493 ([id number]) Assessment & Plan Assessment & Plan (1) Diabetes mellitus with microalbuminuria, without long-term current use of insulin: Code(s): E11.29 - Type 2 diabetes mellitus with other diabetic kidney complication; R80.9 - Proteinuria, unspecified Category: Medical Qualifiers: Diabetes mellitus type: type 2 Qualified Code(s): E11.29 - Type 2 diabetes mellitus with other diabetic kidney complication; R80.9 - Proteinuria, unspecified (2) HTN (hypertension): Code(s): I10 - Essential (primary) hypertension Category: Medical Qualifiers: Hypertension type: primary hypertension Qualified Code(s): I10 - Essential (primary) hypertension (3) Insomnia: Code(s): G47.00 - Insomnia, unspecified (4) Annual visit for general adult medical examination with abnormal findings: Code(s): Z00.01 - Encounter for general adult medical examination with abnormal findings (5) Dyslipidemia: Code(s): E78.5 - Hyperlipidemia, unspecified Category: Medical Plan 1. Type 2 Diabetes Mellitus, uncontrolled The patient's HbA1c has risen to 8.5, indicating poor glycemic control, which is now beginning to affect her kidneys. This is attributed to recent dietary non-adherence. She is followed by an senior label specialist who is considering stopping Januvia and starting either Jardiance, which is kidney-protective, or Mounjaro, which can aid in appetite suppression. The plan is to await final medication decisions from her specialist and for insurance coverage details to be clarified in March. Counseled the patient on the importance of diet, exercise, and avoiding alcohol. 2. Hypertension Blood pressure is elevated at 156/60 mmHg. A discussion was had regarding adding low-dose amlodipine, but the decision was made to defer medication changes at this time. The plan is for the patient to reduce salt intake, increase walking, and return for a nurse visit in two weeks to recheck her blood pressure. 3. Insomnia The patient reports chronic difficulty sleeping and has not had success with pcvx-rxs-upucaxf options. She was prescribed trazodone 50 mg, with instructions to take half a tablet as needed for sleep. Advised her to avoid daytime naps to improve sleep hygiene. 4. Health Maintenance The patient is up to date on her flu and COVID-19 immunizations and had a negative Cologuard test in December 2022. She will get the Prevnar 21 vaccine at the pharmacy. She declines the RSV and shingles vaccines at this time. She has also deferred her mammogram and bone density scan for now. Recommended continuing vitamin D 2000 units and starting a daily multivitamin for women over 50. 5. Dyslipidemia Latest fasting labs showed lipids are within normal limits, continued on rosuvastatin 5 mg every other day. Patient was informed and verbally consented to the use of an ambient scribe for clinic note documentation during this visit. Medications: New trazodone 25 mg (1/2 x 50 mg) PO BEDTIME PRN 10 tabs 0RF sleep
[2025-01-13 16:06] VITALS: BP 156/60; PULSE 85; RESP 16; TEMP 36.6; O2SAT 96; BMI 35.2
== END 2025-01-13 16:46 | disposition home or self-care (01) ==
LOC: HO.HMCC 16:01
PROVIDERS: PCP Internal Medicine; Visit Provider Internal Medicine
DX: E11.29 Type 2 diabetes mellitus with other diabetic kidney complication (principal); R80.9 Proteinuria, unspecified; I10 Essential (primary) hypertension; G47.00 Insomnia, unspecified; Z00.01 Encounter for general adult medical examination with abnormal findings; E78.5 Hyperlipidemia, unspecified

== ENCOUNTER 2025-01-27 11:34 | Outpatient (AMB) | payer MEDICARE, SELFPAY ==
--- NOTE | 2025-01-27 11:57 | A.OFFVIS_ITS ---
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 Accompanied by: Self / Same As Patient Allergies penicillin V Allergy (Intermediate, Verified 01/13/25 16:18) Unknown HPI Comprehensive Diabetes Asmnt Most Recent Diabetes Results: Hemoglobin A1c 6.6 % 08/22/19 Microalb/Creat Ratio, (<30) 38.4 ug/mg cr H 04/12/24 Cholesterol, (<200) 164 mg/dL 01/13/25 HDL Cholesterol, (>40) 50 mg/dL 01/13/25 Triglycerides, (<150) 115 mg/dL 01/13/25 Creatinine, (0.5-1.4) 0.88 mg/dL 01/13/25 BUN, (9-16) 28 mg/dL H 01/13/25 Sodium, (135-145) 133 mmol/L L 01/13/25 Potassium, (3.3-5.1) 4.6 mmol/L 01/13/25 Chloride, (96-108) 102 mmol/L 01/13/25 Carbon Dioxide, (22-29) 22 mmol/L 01/13/25 Calcium, (8.4-10.2) 9.4 mg/dL 01/13/25 AST, (5-31) 24 U/L 01/13/25 ALT, (0-31) 21 U/L 01/13/25 Total Protein, (6.5-8.0) 7.1 G/DL 07/31/18 Albumin, (3.5-5.0) 4.5 G/DL 07/31/18 [facility] [place] Medical History Erythema intertrigo History of basal cell cancer History of squamous cell carcinoma Type 2 diabetes mellitus with peripheral neuropathy Generalized anxiety disorder Leukopenia Diabetes mellitus with microalbuminuria, without long-term current use of insulin Asymptomatic age-related postmenopausal state Plantar fasciitis, bilateral HTN (hypertension) Dyslipidemia Surgical History History of removal of cyst (08/02/22) History of total abdominal hysterectomy and bilateral salpingo-oophorectomy Family History Father Medical history non-contributory Mother Medical history non-contributory Social History Household Members: None Housing: House Alcohol intake: current Alcohol intake frequency: a few times a month Patient Tobacco Use Status: Never used Tobacco e-Cigarette/Vaping Use: Never Used Second Hand Smoke Exposure: No service: No Current occupational status: retired Cognitive needs: No Hearing needs: No Vision needs: No Assessment & Plan Assessment & Plan (1) Diabetes mellitus with microalbuminuria, without long-term current use of insulin: Code(s): E11.29 - Type 2 diabetes mellitus with other diabetic kidney complication; R80.9 - Proteinuria, unspecified Plan: Patient at visit to set up an [employer]er[employer] 3+ with reader Instructed Pt on what CGM can and can't do CGM Can: Give Pt minute by minute reading of glucose levels Displays glucose trend arrows that represents the direction glucose levels are fluctuating Give insight on decisions about how to dose insulin CGM cannot: Improve glucose control on its own Completely eliminate the need for all finger sticks Make dosing decision for you CGM is the reading of glucose in the interstitial fluid not actual blood glucose, finger sticks are still necessary when Pt's symptom?s do not match sensor reading and if sensors prompts Pt to do a fingerstick Instructed patient sensors water proof you can shower, or swim do not submerge sensor in water for over 30 minutes Is sensor falls off cannot put back in you need to replace sensor, customer service number given to patient for sensor replacement Sensor placed on the back of left arm Patient left visit with sensor in warmup Reviewed how to interpret trend arrows Discussed lag time between finger stick and sensor data.? Instructed patient the importance of having blood glucometer for backup testing if needed Reviewed delay of CGM from fingersticks Reminded Pt that if symptoms do not match sensor still needs to check fingersticks. Portions of this note were created using voice recognition software, please excuse any words or phrases that may have been misinterpreted. Patient Instructions: Patient instruction: CGM provides information on blood glucose control throughout the day, including hyperglycemia and hypoglycemia. ? Continue to monitor blood glucose as instructed. Follow nutrition guidelines provided. Report any discomfort promptly to health care provider. ?Stay well-hydrated. You can bathe ,shower, swim and exercise while wearing the glucose sensor. Do not submerge glucose sensor in water for more than 30 minutes. Coding Level of Care Code Est Pt Level 1 (17489) Diagnoses Diabetes mellitus with microalbuminuria, without long-term current use of insulin E11.29; R80.9
== END 2025-01-27 12:20 | disposition home or self-care (01) ==
LOC: HO.ENCR 11:35
PROVIDERS: PCP Internal Medicine; Visit Provider Registered Nurse Diabetes Educator
DX: E11.29 Type 2 diabetes mellitus with other diabetic kidney complication (principal); R80.9 Proteinuria, unspecified

== ENCOUNTER → 2025-01-27 11:34 | Outpatient (BNVA) | payer MEDICARE, SELFPAY | PROVIDERS: PCP Internal Medicine; Visit Provider Registered Nurse Diabetes Educator | DX: E11.29 Type 2 diabetes mellitus with other diabetic kidney complication (principal); R80.9 Proteinuria, unspecified | CPT/HCPCS: 99211 ==